=== PATIENT | female | born 1955 | race Caucasian/White ===

== ENCOUNTER 2020-09-03 11:12 | Outpatient (REF) | payer MEDICARE, SELFPAY ==
[2020-09-03 12:35] LABS: MANUAL DIFF FLAG NO
[2020-09-03 12:39] LABS: Basophils Percent Auto 0.6 % (0-2); Eosinophils Absolute Auto 0.2 X10*3/uL (0.0-0.4); Eosinophils Percent Auto 3.4 % (0-4); Hematocrit 37.6 % (37-47); Hemoglobin 12.5 g/dl (12.0-16.0); Imm Gran Abs Auto 0.02 X10*3/uL (0.00-0.03); Imm Gran Pct Auto 0.3 % (0.0-0.4); Lymphocytes Absolute Auto 2.4 X10*3/uL (1.2-4.9); Lymphocytes Percent Auto 34.2 % (20-40); Mean Corpuscular HGB Conc 33.2 g/dl (31.0-35.0); Mean Corpuscular Hemoglobin 30.2 pg (27.0-33.0); Mean Corpuscular Volume 90.8 fL (80-98); Mean Platelet Volume 10.3 fL (9.4-12.3); Monocytes Absolute Auto 0.4 X10*3/uL (0.1-1.2); Monocytes Percent Auto 5.4 % (2-11); Neutrophils Percent Auto 56.1 % (45-73); Platelet Count 255 X10*3/uL (160-400); Red Blood Count 4.14 X10*6/uL (4.20-5.50); Red Cell Distribution Width 12.7 % (11.0-16.0); White Blood Count 7.1 X10*3/uL (4.8-10.8)
[2020-09-03 14:09] LABS: Creatinine Urine 145.76 mg/dL; Microalbum/Creatinine Ratio Ur 9.6 ug/mg cr
[2020-09-03 14:09] LABS: Alanine Aminotransferase 35 U/L (0-31); Albumin Level 4.2 g/dL (3.5-5.0); Alkaline Phosphatase 69 U/L (39-117); Anion Gap 13 (12-20); Aspartate Amino Transferase 34 U/L (5-31); Bilirubin Total 1.3 mg/dL (0.0-1.0); Blood Urea Nitrogen 25 mg/dL (9-16); Calcium 9.9 mg/dL (8.4-10.2); Carbon Dioxide 25 mmol/L (22-29); Chloride 106 mmol/L (96-108); Cholesterol 145 mg/dL; Estimated Glomerular Filt Rate > 60; Glucose Fasting 136 mg/dL (60-99); HDL Cholesterol 37 mg/dL; LDL Cholesterol Calculated 81 mg/dl; Potassium 4.3 mmol/L (3.3-5.1); Sodium 140 mmol/L (135-145); Total Protein 7.3 g/dL (6.5-8.0); Triglycerides 137 mg/dL
[2020-09-03 14:17] LABS: TSH reflex Free T4 0.46 uIU/mL (0.32-4.0)
== END 2020-09-03 11:13 | disposition home or self-care (01) ==
LOC: HO.LAB 11:12
PROVIDERS: PCP Physician Assistant; Visit Provider Physician Assistant
DX: E78.2 Mixed hyperlipidemia (principal); E11.9 Type 2 diabetes mellitus without complications; I10 Essential (primary) hypertension
CPT/HCPCS: 36415; 80053; 80061; 82043; 84443; 85025

== ENCOUNTER 2020-10-12 13:00 | Outpatient (REF) | payer MEDICARE, SELFPAY ==
--- NOTE | ~2020-10-12 | MM_ITS ---
EXAMINATION: MM SCREENING DIGITAL BREAST TOMOSYNTHESIS, BILATERAL CLINICAL INFORMATION: Screening. Asymptomatic. The lifetime risk of breast cancer based on the Tyrer-Cuzick Model is 5%. COMPARISON: Mammography: 07/16/2018, 12/17/2015, 12/07/2015 TECHNIQUE: Digital breast tomosynthesis is performed in both the craniocaudal and mediolateral oblique views along with computer-aided detection (CAD). Synthesized 2D images are generated from the tomosynthesis. FINDINGS: The breasts are almost entirely fatty (ACR BI-RADS breast composition Category a). Background stromal and fibroglandular densities are stable. There are scattered benign round, rim, predominantly dermal calcifications again seen. The axilla and skin contours are unremarkable. MM/MM tomosynthesis screening BI IMPRESSION: No mammographic evidence of malignancy. ASSESSMENT: BI-RADS 2: Benign RECOMMENDATION: Routine annual mammography screening. This patient's information was entered into a reminder system with a target due date for their next mammogram.
--- NOTE | ~2020-10-12 | XR_ITS ---
EXAMINATION: XR SHOULDER, RIGHT CLINICAL INFORMATION: Encounter for other screening for malignant neoplasm COMPARISON: None TECHNIQUE: AP external rotation, Grashey, scapular Y, and axillary views of the right shoulder. FINDINGS: Bone alignment is normal. No fracture or dislocation is seen. The glenohumeral joint is normal. There is mild arthritis at the acromioclavicular joint. Soft tissues are unremarkable. XR/XR shoulder RT min 2V IMPRESSION: Mild arthritis at the acromioclavicular joint.
== END 2020-10-12 13:01 | disposition home or self-care (01) ==
LOC: HO.MAMMO 13:00
PROVIDERS: PCP Physician Assistant; Visit Provider Physician Assistant
DX: Z12.31 Encounter for screening mammogram for malignant neoplasm of breast (principal); M77.8 Other enthesopathies, not elsewhere classified
CPT/HCPCS: 73030; 77063; 77067

== ENCOUNTER 2021-01-17 15:56 | Emergency (ER) | payer OTHER, MEDICARE, SELFPAY ==
--- NOTE | ~2021-01-17 | XR_ITS ---
EXAMINATION: XR ELBOW, RIGHT CLINICAL INFORMATION: Trauma, pain COMPARISON: None TECHNIQUE: Right elbow is imaged in 4 views. FINDINGS: There is no fracture dislocation or destructive process. No visible capsular effusion. The articular surfaces appear intact. Some minor spurring is noted at the coronoid process. There is no joint narrowing or erosive change. XR/XR elbow RT min 3V IMPRESSION: No fracture, dislocation, or visible capsular effusion.
--- NOTE | ~2021-01-17 | XR_ITS ---
EXAMINATION: XR SHOULDER, RIGHT CLINICAL INFORMATION: Trauma, pain COMPARISON: Radiographs right shoulder 10/12/2020 TECHNIQUE: Right shoulder is imaged in 4 views. FINDINGS: There is no fracture or dislocation. The acromioclavicular alignment is normal. The glenohumeral joint is normal. There is a probable rotator cuff calcification adjacent to the tuberosity best seen on axial view, possibly within the distal subscapularis. The right lung apex shows no pneumothorax or pleural reaction. XR/XR shoulder RT min 2V IMPRESSION: 1. No fracture or dislocation. 2. Suspect calcific tendinosis in region of distal subscapularis.
[2021-01-17 16:02] VITALS: BP 169/78; PULSE 79; O2SAT 98
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
[2021-01-17 16:08] VITALS: BP 169/78; PULSE 79; RESP 19; TEMP 36.7; O2SAT 98; BMI 34.0
[2021-01-17] MEDS: Acetaminophen 325 MG TABLET 650 MG PO (16:34)
== END 2021-01-17 17:38 | disposition home or self-care (01) ==
PROVIDERS: Emergency Provider Emergency Medicine Emergency Medical Services; PCP Physician Assistant
DX: S50.01XA Contusion of right elbow, initial encounter (principal); M25.521 Pain in right elbow; M25.511 Pain in right shoulder; E11.9 Type 2 diabetes mellitus without complications; V43.62XA Car passenger injured in collision with other type car in traffic accident, initial encounter; Y93.9 Activity, unspecified; Y92.410 Unspecified street and highway as the place of occurrence of the external cause; Y99.9 Unspecified external cause status; Z79.899 Other long term (current) drug therapy; Z87.891 Personal history of nicotine dependence; Z79.4 Long term (current) use of insulin
CPT/HCPCS: 73030; 73080; 99283

== ENCOUNTER 2021-01-30 14:50 | Outpatient (REF) | payer OTHER, MEDICARE, SELFPAY ==
--- NOTE | ~2021-01-30 | XR_ITS ---
EXAMINATION: XR CERVICAL SPINE CLINICAL INFORMATION: Cervicalgia COMPARISON: None TECHNIQUE: 3 views of the cervical spine were obtained. FINDINGS: No acute fracture or subluxation. Vertebral body height and alignment is maintained. Mild disc space narrowing of C5-C6 and C6-C7 with tiny endplate osteophytes. The atlantoaxial joint is well aligned. The dens is intact. The prevertebral soft tissues are unremarkable. The lung apices are clear. XR/XR cervical spine 3V IMPRESSION: Mild degenerative change of the lower cervical spine.
== END 2021-01-30 14:51 | disposition home or self-care (01) ==
LOC: HO.XRAY 14:50
PROVIDERS: PCP Physician Assistant; Visit Provider Physician Assistant
DX: M54.2 Cervicalgia (principal)
CPT/HCPCS: 72040

== ENCOUNTER 2021-04-03 12:57 | Outpatient (REF) | payer MEDICARE, OTHER, SELFPAY | END 2021-04-03 12:58 | disposition home or self-care (01) | LOC: HO.MRI 12:57 | PROVIDERS: PCP Physician Assistant; Visit Provider Physician Assistant | DX: Z13.89 Encounter for screening for other disorder (principal) ==

== ENCOUNTER 2021-04-11 13:56 | Outpatient (REF) | payer MEDICARE, OTHER, SELFPAY ==
--- NOTE | ~2021-04-11 | MM_ITS ---
EXAMINATION: BONE DENSITOMETRY CLINICAL INDICATION: Menopause. COMPARISON: Baseline BD dated 03/08/2007. TECHNIQUE: Using a [employer] DXA System (software version: 13.1) manufactured by [employer], dual-energy x-ray absorptiometry was performed of the lumbar spine and left hip. The images are of good technical quality. Summary results are attached. FINDINGS: AP SPINE L1-L4: Current: BMD 1.216 g/cm2, Z-score 1.4, T-score 0.3, normal, 9.1% decrease from baseline (<5% change is not significant). Baseline: BMD 1.337 g/cm2. LEFT FEMUR, NECK: Current: BMD 0.745 g/cm2, Z-score -0.9, T-score -2.1, osteopenia. Baseline: BMD 0.871 g/cm2. LEFT FEMUR, TOTAL: Current: BMD 0.901 g/cm2, Z-score 0.1, T-score -0.8, normal, 9.6% decrease from baseline (<5% change is not significant). Baseline: BMD 0.997 g/cm2. IDENTIFIED RISK FACTORS: Menopause, height loss, history of fracture (adult), secondary osteoporosis. HISTORY OF FRACTURE: No insufficiency fracture reported. MEDICATIONS: Calcium. MM/XR DEXA axial skeleton IMPRESSION: 1. DIAGNOSIS: Osteopenia based on the lowest T-score value of -2.1 in the femoral neck applying World Health Organization criteria. 2. 10-YEAR FRACTURE RISK PREDICTION, FRAX: Major osteoporotic fracture (clinical spine, forearm, hip or shoulder) 18.1%. Hip fracture 3.2%. 3. Treatment Recommendations: NOF guidelines recommend consideration for treatment in postmenopausal women and men age 50 and older presenting with the following: -A hip or vertebral (clinical or morphometric) fracture. -T-score less than or equal to -2.5 at the femoral neck or spine after appropriate evaluation to exclude secondary causes. -Low bone mass at the hip or spine and a 10-year fracture probability by FRAX of greater than or equal to 3% for hip fracture or greater than or equal to 20% for major osteoporotic fracture based on the [place] adapted WHO algorithm. 4. Other Recommendations: All treatment decisions require clinical judgment and consideration of individual patient factors, including patient preferences, comorbidities, previous drug use, risk factors not captured in the FRAX model (e.g. frailty, falls, vitamin D deficiency, increased bone turnover, interval significant decline in bone density) and possible under or overestimation of fracture risk by FRAX. Additional medical evaluation for secondary cause of low bone mineral density may be appropriate. FUTURE SCAN RECOMMENDATION: People with diagnosed cases of osteoporosis or at high risk for fracture should have regular bone mineral density tests. For patients eligible for Medicare, routine testing is allowed once every 2 years. The testing frequency can be increased to one year for patients who have rapidly progressing disease, those who are receiving or discontinuing medical therapy to restore bone mass, or have additional risk factors.
== END 2021-04-11 13:57 | disposition home or self-care (01) ==
LOC: HO.MAMMO 13:56
PROVIDERS: Visit Provider Physician Assistant
DX: Z13.820 Encounter for screening for osteoporosis (principal); M85.80 Other specified disorders of bone density and structure, unspecified site; Z78.0 Asymptomatic menopausal state; Z79.899 Other long term (current) drug therapy
CPT/HCPCS: 77080

== ENCOUNTER 2021-06-27 11:00 | Outpatient (RCR) | payer OTHER, MEDICARE, SELFPAY ==
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
== END 2021-07-30 12:14 | disposition home or self-care (01) ==
LOC: HO.PT 11:00
PROVIDERS: PCP Physician Assistant; Visit Provider Psychiatry & Neurology Neurology
DX: M75.01 Adhesive capsulitis of right shoulder (principal)
CPT/HCPCS: 97140; 97162; 97530; 97535

== ENCOUNTER → 2021-08-08 10:56 | Outpatient (BNVA) | payer OTHER, MEDICARE, SELFPAY | PROVIDERS: PCP Physician Assistant; Visit Provider Physician Assistant | DX: M75.01 Adhesive capsulitis of right shoulder (principal) | CPT/HCPCS: 20610; J1020 ==

== ENCOUNTER → 2021-10-07 12:55 | Outpatient (BNVA) | payer MEDICARE, SELFPAY | PROVIDERS: PCP Physician Assistant; Visit Provider Surgery | DX: M75.01 Adhesive capsulitis of right shoulder (principal); M79.7 Fibromyalgia | CPT/HCPCS: 99202 ==

== ENCOUNTER → 2021-11-05 11:06 | Outpatient (BNVA) | payer OTHER, MEDICARE, SELFPAY | PROVIDERS: PCP Physician Assistant; Visit Provider Nurse Practitioner Family | DX: M75.01 Adhesive capsulitis of right shoulder (principal); M62.838 Other muscle spasm; M54.2 Cervicalgia; Z79.899 Other long term (current) drug therapy; Z79.4 Long term (current) use of insulin | CPT/HCPCS: 99202 ==

== ENCOUNTER → 2021-12-09 10:59 | Outpatient (BNVA) | payer OTHER, MEDICARE, SELFPAY | PROVIDERS: PCP Physician Assistant; Visit Provider Internal Medicine | DX: M75.01 Adhesive capsulitis of right shoulder (principal); M77.8 Other enthesopathies, not elsewhere classified | CPT/HCPCS: 20611; 99212; J2795; J3300 ==

== ENCOUNTER → 2022-04-21 15:14 | Outpatient (BNVA) | payer OTHER, MEDICARE, SELFPAY | PROVIDERS: PCP Physician Assistant; Visit Provider Internal Medicine | DX: M54.2 Cervicalgia (principal); M54.14 Radiculopathy, thoracic region | CPT/HCPCS: 99212 ==

== ENCOUNTER → 2022-05-09 11:52 | Outpatient (BNVA) | payer OTHER, MEDICARE, SELFPAY | PROVIDERS: PCP Physician Assistant; Visit Provider Internal Medicine | DX: M54.12 Radiculopathy, cervical region (principal) | CPT/HCPCS: Q3014 ==

== ENCOUNTER 2022-07-02 06:01 | Outpatient (REF) | payer OTHER, MEDICARE, SELFPAY ==
--- NOTE | ~2022-07-02 | FL_ITS ---
EXAMINATION: FL FLUOROSCOPY WITH IMAGES CLINICAL INFORMATION: Radiculopathy cervical region. COMPARISON: None available. TECHNIQUE: Fluoroscopy Supervised By: Dr. Jerald Varner Fluoroscopy Time: 0.6 minutes Cumulative Dose: 24 mGy-cm DAP: 2 Gy-cm2 Images: 4 FINDINGS: Images demonstrate needle placement and contrast injection adjacent to a lateral lower cervical vertebral body. FL/FL guidance in treatment room IMPRESSION: Fluoroscopy guidance for pain management procedure.
== END 2022-07-02 06:02 | disposition home or self-care (01) ==
LOC: CF 06:01
PROVIDERS: Visit Provider Internal Medicine
DX: M54.12 Radiculopathy, cervical region (principal)
CPT/HCPCS: 62321; J1100

== ENCOUNTER → 2022-08-01 11:40 | Outpatient (BNVA) | payer OTHER, MEDICARE, SELFPAY | PROVIDERS: PCP Physician Assistant; Visit Provider Internal Medicine | DX: M47.814 Spondylosis without myelopathy or radiculopathy, thoracic region (principal) | CPT/HCPCS: 99212 ==

== ENCOUNTER 2022-08-20 05:58 | Outpatient (REF) | payer OTHER, MEDICARE, SELFPAY ==
--- NOTE | ~2022-08-20 | FL_ITS ---
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 Jerald Varner. Fluoroscopy Time: 0.3 minutes. Cumulative Dose: 4.0 mGy. DAP: 0.348 Gycm2. Images: 2. FINDINGS: There are 3 spinal needles overlying 3 adjacent mid thoracic right neural foramen. There are degenerative changes thoracic spine with bridging osteophytes. FL/FL guidance in treatment room IMPRESSION: Fluoroscopy for pain management procedures.
== END 2022-08-20 05:59 | disposition home or self-care (01) ==
LOC: CF 05:58
PROVIDERS: Visit Provider Internal Medicine
DX: M47.814 Spondylosis without myelopathy or radiculopathy, thoracic region (principal)
CPT/HCPCS: 64490; 64491; J1020

== ENCOUNTER → 2022-08-29 08:51 | Outpatient (BNVA) | payer OTHER, MEDICARE, SELFPAY | PROVIDERS: PCP Physician Assistant; Visit Provider Internal Medicine | DX: M47.814 Spondylosis without myelopathy or radiculopathy, thoracic region (principal); M54.12 Radiculopathy, cervical region; G58.8 Other specified mononeuropathies | CPT/HCPCS: 99212 ==

== ENCOUNTER 2022-09-26 08:26 | Day surgery (SDC) | payer OTHER, MEDICARE, SELFPAY ==
--- NOTE | 2022-09-25 11:46 | HO.ANESPROP2 ---
Documented by User: Arlen Freire NP 09/25/22 11:46 HPI - Anesthesia Eval Consult details Narrative: 66yo F for Colonoscopy PMFSH Active Problems Active Problems: All Active Problems (Updated 09/23/22 @ 12:41 by Tye Butler PA-C) Intercostal neuralgia (Acute) Thoracic spondylosis (Acute) Cervical radicular pain (Acute) GERD (gastroesophageal reflux disease) (Acute) Thoracic radiculopathy (Acute) Adhesive capsulitis of right shoulder (Acute) Post-menopausal (Acute) Osteoporosis screening (Acute) Medicare annual wellness visit, initial (Acute ~03/18/21) Cervical spine pain (Acute) Breast cancer screening (Acute) Obese (Acute) HTN (hypertension) (Acute) Type 2 diabetes mellitus (Acute) HLD (hyperlipidemia) (Acute) Past Medical History Medical History BPPV (benign paroxysmal positional vertigo) Fibromyalgia History of smoking Osteoarthritis, shoulder Family History Family History Father Medical history unknown Mother CVD (cardiovascular disease) Family/Other FH: mental illness Surgical History Surgical History History of appendectomy History of removal of ovarian cyst History of wisdom tooth extraction Social History Social History Housing: Apartment Alcohol intake: never Patient Tobacco Use Status: Former Tobacco user e-Cigarette/Vaping Use: Never Used Second Hand Smoke Exposure: No Are you DNR?: No Advance Directives: No Advance Directives Information Provided: Yes Nutrition Risks: No Nutritional Risk Current occupational status: retired and disabled Cognitive needs: No Hearing needs: No Vision needs: Yes (wear glasses) Meds Allergies Allergy/AdvReac Type Severity Reaction Status Date / Time tramadol Allergy Mild Unknown Verified 09/26/22 08:35 fentanyl [From DURAGESIC] AdvReac Intermediate NAUSEA & Verified 09/26/22 08:35 VOMITING tizanidine AdvReac Intermediate fatigue Verified 09/26/22 08:35 states multiple meds does not Allergy Unknown Unknown Uncoded 08/29/22 08:55 Home Medications Medication Instructions Recorded Confirmed Last Taken Type lorazepam 0.5 mg tablet 0.5 mg PO BID 03/12/20 09/18/22 Unknown History ibuprofen 200 mg capsule 800 mg PO .HS 11/05/21 09/18/22 Unknown History insulin regular human 100 unit/mL 1 sliding scale dose subcut 12/09/21 09/18/22 Unknown History (3 mL) subcutaneous pen (Novolin R USEASDIRECTD FlexPen) Exam Exam Date and Time: September 25, 2022 1146 Assessment and Plan Assessment Anesthesia Assessment: Chart Reviewed Documented by User: Ana Begum MD 09/26/22 10:05 PMFSH Past Medical History Medical History BPPV (benign paroxysmal positional vertigo) Fibromyalgia History of smoking Osteoarthritis, shoulder Family History Family History Father Medical history unknown Mother CVD (cardiovascular disease) Family/Other FH: mental illness Family history of problems with anesthesia: No Surgical History Surgical History History of appendectomy History of removal of ovarian cyst History of wisdom tooth extraction History of Problems with Anesthesia: No Social History Social History Housing: Apartment Alcohol intake: never Patient Tobacco Use Status: Former Tobacco user e-Cigarette/Vaping Use: Never Used Second Hand Smoke Exposure: No Are you DNR?: No Advance Directives: No Advance Directives Information Provided: Yes Nutrition Risks: No Nutritional Risk Current occupational status: retired and disabled Cognitive needs: No Hearing needs: No Vision needs: Yes (wear glasses) Meds Allergies Allergy/AdvReac Type Severity Reaction Status Date / Time tramadol Allergy Mild Unknown Verified 09/26/22 08:35 fentanyl [From DURAGESIC] AdvReac Intermediate NAUSEA & Verified 09/26/22 08:35 VOMITING tizanidine AdvReac Intermediate fatigue Verified 09/26/22 08:35 states multiple meds does not Allergy Unknown Unknown Uncoded 08/29/22 08:55 Home Medications Medication Instructions Recorded Confirmed Last Taken Type lorazepam 0.5 mg tablet 0.5 mg PO BID 03/12/20 09/18/22 Unknown History ibuprofen 200 mg capsule 800 mg PO .HS 11/05/21 09/18/22 Unknown History insulin regular human 100 unit/mL 1 sliding scale dose subcut 12/09/21 09/18/22 Unknown History (3 mL) subcutaneous pen (Novolin R USEASDIRECTD FlexPen) Exam Airway Mallampati Class: I TM Dist: >3cm Neck ROM: Full Loose/Missing/Broken Teeth: Yes (left front chipped) Heart: rr Lungs: cts Assessment and Plan Assessment Anesthesia Assessment: Anesthesia Plan Discussed Final Anesthetic Review Family History of Problems with Anesthesia: No History of Problems with Anesthesia: No NPO: Yes ASA Class: II Final Preanesthetic Review: No Changes in Pt Med Stat, Meds/Allgs Chart Reviewed, Consent Obtained/Reviewed and Anes Risks/Benef Reviewed Patient Risk: Low Procedure Risk: Low Anesthetic Plan Anesthetic Plan: MAC: Disposition: Standard PACU
[2022-09-26 06:54] VITALS: BMI 31.8
[2022-09-26] MEDS: Lactated Ringers 1,000 ML 100 ML IVCONT (09:07)
[2022-09-26 09:17] LABS: Glucose, Whole Blood 173 mg/dL (60-115)
[2022-09-26 09:25] VITALS: BP 125/77; PULSE 77; RESP 18; TEMP 36.6; O2SAT 95
[2022-09-26 10:38] VITALS: BP 84/47; PULSE 68; RESP 16; TEMP 36.1; O2SAT 92
--- NOTE | 2022-09-26 10:39 | P.BOP_ITS ---
Brief Operative Note Date of Service: 09/26/22 Pre-op diagnosis: Screening Post-op diagnosis: other (Rectal polyp) Procedure: Colonoscopy to the cecum with cold snare polypectomy Surgeon: Trevon Burger Anesthesia: MAC Was an Tractor Crane Engineer used for this Procedure?: No Estimated blood loss (mL): 2.0 Pathology: other (A. Rectal polyp) Condition: stable Disposition: PACU
[2022-09-26 10:41] VITALS: BP 97/48
[2022-09-26 10:55] VITALS: BP 115/52; PULSE 66; RESP 17; TEMP 36.1; O2SAT 96
--- NOTE | 2022-09-26 10:56 | OP_ITS ---
DATE OF SERVICE: 09/26/2022 SURGEON: Trevon Burger MD INDICATIONS: The patient presents for evaluation of colorectal cancer screening. Full consent was obtained from her for this, including risks of bleeding and perforation. PREOPERATIVE DIAGNOSIS: POSTOPERATIVE DIAGNOSIS: PROCEDURE PERFORMED: Colonoscopy to cecum with cold snare polypectomy. ESTIMATED BLOOD LOSS: COMPLICATIONS: ANESTHESIA: Monitored anesthesia care. ASSISTANTS: SPECIMENS: PREOP DIAGNOSIS: Colorectal cancer screening. POSTOP DIAGNOSES: Colorectal cancer screening. Small colon polyp, diverticulosis and internal hemorrhoids. DESCRIPTION OF PROCEDURE: The patient was placed in the left lateral decubitus position. The digital rectal exam revealed no abnormalities. The Olympus video pediatric colonoscope was entered into the rectum and advanced to the cecum with the assistance of abdominal wall pressure. Once in the cecum, I did identify normal-appearing cecal pouch with appendiceal orifice and a normal-appearing ileocecal valve. There was transillumination of light deep in the right lower quadrant. The entire cecum and ileocecal valve appeared normal. The scope was then slowly withdrawn, assessing all mucosal surfaces carefully. Preparation was excellent. In the proximal rectum was an approximately 5 to 6 mm polyp, which was removed by cold snare polypectomy and recovered by suction. The polypectomy site appeared clean, without any sign of residual polyp nor significant bleeding. I did not visualize any other polyps, colitis, nor angiodysplasia. There was a mild amount of sigmoid diverticulosis. In the rectum, scope was retroflexed, visualizing internal hemorrhoids, but no other pathology. The rectal mucosa appeared normal. The scope was straightened and withdrawn from the patient. She tolerated the procedure well and was returned to the recovery area in stable condition. IMPRESSION: 1. Colon polyp. 2. Diverticulosis. 3. Internal hemorrhoids. PLAN: The results of the pathology will be checked. If the polyp is a tubular adenoma, I would recommend a followup colonoscopy in 5 years. If it is only hyperplastic, I would recommend a followup colonoscopy in 10 years. She was advised not to use any aspirin or NSAIDs for 1 week. MD FRANCIA Ferrer/RAMANDEEP / [id number] MTDAnthony
== END 2022-09-26 11:50 | disposition home or self-care (01) ==
PROVIDERS: PCP Physician Assistant; Visit Provider Internal Medicine
PROC: 0DJD8ZZ Inspection of Lower Intestinal Tract, Via Natural or Artificial Opening Endoscopic (ICD-10-PCS; CPT 45378; principal; 2022-09-26 09:30)
DX: Z12.11 Encounter for screening for malignant neoplasm of colon (principal); K62.1 Rectal polyp; K57.30 Diverticulosis of large intestine without perforation or abscess without bleeding; K64.8 Other hemorrhoids; K58.0 Irritable bowel syndrome with diarrhea; K21.9 Gastro-esophageal reflux disease without esophagitis; E78.5 Hyperlipidemia, unspecified; I10 Essential (primary) hypertension; M79.7 Fibromyalgia; J44.9 Chronic obstructive pulmonary disease, unspecified; H81.10 Benign paroxysmal vertigo, unspecified ear; E11.9 Type 2 diabetes mellitus without complications; Z79.4 Long term (current) use of insulin; Z79.1 Long term (current) use of non-steroidal anti-inflammatories (NSAID); Z79.899 Other long term (current) drug therapy; Z88.8 Allergy status to other drugs, medicaments and biological substances; Z87.891 Personal history of nicotine dependence
CPT/HCPCS: 45385; 82947; 88305

== ENCOUNTER 2022-10-01 08:22 | Outpatient (REF) | payer OTHER, MEDICARE, SELFPAY ==
[2022-10-01 11:39] LABS: Hematocrit 37.6 % (37.0-47.0); Hemoglobin 12.5 g/dl (12.0-16.0); Mean Corpuscular HGB Conc 33.2 g/dl (31.0-35.0); Mean Corpuscular Hemoglobin 30.3 pg (27.0-33.0); Mean Platelet Volume 10.6 fL (9.4-12.3); Platelet Count 261 X10*3/uL (160-400); Red Blood Count 4.13 X10*6/uL (4.20-5.50); Red Cell Distribution Width 13.1 % (11.0-16.0); White Blood Count 6.9 X10*3/uL (4.8-10.8)
[2022-10-01 12:54] LABS: Alanine Aminotransferase 27 U/L (0-31); Alkaline Phosphatase 85 U/L (39-117); Anion Gap 14 (12-20); Aspartate Amino Transferase 30 U/L (5-31); Blood Urea Nitrogen 26 mg/dL (9-16); Calcium 10.6 mg/dL (8.4-10.2); Carbon Dioxide 27 mmol/L (22-29); Chloride 105 mmol/L (96-108); Cholesterol 138 mg/dL; Estimated Glomerular Filt Rate 54; Glucose Fasting 116 mg/dL (60-99); HDL Cholesterol 42 mg/dL; LDL Cholesterol Calculated 74 mg/dl; Potassium 4.3 mmol/L (3.3-5.1); Sodium 142 mmol/L (135-145); Total Protein 7.6 g/dL (6.5-8.0); Triglycerides 112 mg/dL
== END 2022-10-01 08:23 | disposition home or self-care (01) ==
LOC: HO.LAB 08:22
PROVIDERS: PCP Physician Assistant; Visit Provider Physician Assistant
DX: I10 Essential (primary) hypertension (principal); E78.2 Mixed hyperlipidemia; G58.8 Other specified mononeuropathies
CPT/HCPCS: 36415; 64420; 80053; 80061; 82043; 85027

== ENCOUNTER 2022-10-01 08:43 | Outpatient (REF) | payer MEDICARE, SELFPAY | END 2022-10-01 08:44 | disposition home or self-care (01) | LOC: CF 08:43 | PROVIDERS: Visit Provider Internal Medicine | DX: Z13.89 Encounter for screening for other disorder (principal) ==

== ENCOUNTER 2022-10-03 11:01 | Outpatient (AMB) | payer MEDICARE, SELFPAY ==
[2022-10-03 11:05] VITALS: BP 102/96; PULSE 85; RESP 14; O2SAT 96; BMI 32.4
--- NOTE | 2022-10-03 11:05 | MHC.OFFVIS ---
Intake Vital Signs 10/03/22 11:05 Height 5 ft 1 in Weight 171 lb 6 oz BMI 32.4 BP 102/96 H Blood Pressure Location Rt brachial Position Sitting Respiration 14 Pulse 85 Pulse Source Pulse Oximeter Pulse Oximetry (%) 96 Oxygen Delivery Method Room Air Intake Visit Reasons: s/p right Dx T8-T9 intercostal NB Allergies tramadol Allergy (Mild, Verified 10/03/22 11:06) Unknown fentanyl [From DURAGESIC] Adverse Reaction (Intermediate, Verified 10/03/22 11:06) NAUSEA & VOMITING tizanidine Adverse Reaction (Intermediate, Verified 10/03/22 11:06) fatigue states multiple meds does not Allergy (Unknown, Uncoded 08/29/22 08:55) Unknown HPI s/p right Dx T8-T9 intercostal NB HPI Details 66-year-old female presenting today for a status post right diagnostic T8-T9 intercoastal nerve block. She had a numbness that radiated around her right side and under the right breast. Unfortunately, this was a bit lower than her area of pain, which she reports today is usually more in the axilla and above the breast. Past procedures: 10/01/22: Intercostal nerve block, right, 8th and 9th, ultrasound-guided: inadequate mapping 08/20/2022: Thoracic Medial Branch Block, Right, T8, T9, T10 medial branches: 50% relief for 2 hours. 07/02/2022: Interlaminar epidural steroid injection, C7/T1, Right parasaggital: 40% relief. [facility] Medical History BPPV (benign paroxysmal positional vertigo) Fibromyalgia History of smoking Osteoarthritis, shoulder Surgical History History of appendectomy History of removal of ovarian cyst History of wisdom tooth extraction Family History Father Medical history unknown Mother CVD (cardiovascular disease) Family/Other FH: mental illness Social History Housing: Apartment Alcohol intake: never Patient Tobacco Use Status: Former Tobacco user e-Cigarette/Vaping Use: Never Used Second Hand Smoke Exposure: No Current occupational status: retired and disabled Cognitive needs: No Hearing needs: No Vision needs: Yes (wear glasses) Review of Systems Const All systems reviewed & are unremarkable except as noted in HPI and below Physical Exam Vital Signs: Last Vital Signs Pulse 85 10/03/22 11:05 Resp 14 10/03/22 11:05 BP 102/96 H 10/03/22 11:05 Pulse Ox 96 10/03/22 11:05 Oxygen Delivery Method Room Air 10/03/22 11:05 BMI result Body Mass Index 32.4 General: Appears afebrile. Alert and oriented. Mood and affect appropriate. Follows and participates in conversation appropriately. Respiratory effort is unlabored. Able to transition from sit to stand unassisted. Ambulates with bilaterally normal heel strike and toe off. Results Reviewed Results Reviewed: No imaging is available for review. Assessment & Plan Assessment & Plan (1) Intercostal neuralgia: Code(s): G58.8 - Other specified mononeuropathies Plan We will reschedule her for a diagnostic right T5-T6-T7 intercostal nerve block for intercostal neuralgia to get better mapping. Discussed the risks and benefits of the procedure with the patient in detail. All questions were answered. The patient is on board with the plan. Justification for interventional therapy: ? Patient with average pain > 6/10 ? Patient has exhausted conservative therapy. The patient will follow up on 10/20/22. Scribed for Dr. Varner by Pedrito Tran, director medical writing, on 10/03/2022. I, Dr. Varner, have personally reviewed and agree with the information entered by the scribe. Coding Level of Care Code Est Pt Level 3 (44613) Diagnoses Intercostal neuralgia G58.8
== END 2022-10-03 11:22 | disposition home or self-care (01) ==
PROVIDERS: PCP Physician Assistant; Visit Provider Internal Medicine
DX: G58.8 Other specified mononeuropathies (principal)
CPT/HCPCS: 99213

== ENCOUNTER → 2022-10-03 11:01 | Outpatient (BNVA) | payer OTHER, MEDICARE, SELFPAY | PROVIDERS: PCP Physician Assistant; Visit Provider Internal Medicine | DX: G58.8 Other specified mononeuropathies (principal) | CPT/HCPCS: 99212 ==

== ENCOUNTER 2022-10-20 08:59 | Outpatient (AMB) | payer MEDICARE, SELFPAY ==
--- NOTE | 2022-10-20 09:00 | MHC.OFFVIS ---
Intake Vital Signs 10/20/22 09:01 Height 5 ft 1 in Weight 172 lb BMI 32.5 BP 110/56 L Blood Pressure Location Rt brachial Position Sitting Respiration 16 Pulse 58 Pulse Source Pulse Oximeter Pulse Oximetry (%) 97 Oxygen Delivery Method Room Air Intake Visit Reasons: 2 WEEK FOLLOW UP Allergies tramadol Allergy (Mild, Verified 10/20/22 09:05) Unknown fentanyl [From DURAGESIC] Adverse Reaction (Intermediate, Verified 10/20/22 09:05) NAUSEA & VOMITING tizanidine Adverse Reaction (Intermediate, Verified 10/20/22 09:05) fatigue states multiple meds does not Allergy (Unknown, Uncoded 08/29/22 08:55) Unknown HPI 2 WEEK FOLLOW UP HPI Details 67-year-old female presenting today for two-week follow-up. Patient presents for scheduled procedure. Denies any recent cough, cold, infection, fever or other significant changes in medical history since last office visit. She reports her worst pain is in the right upper periscapular region that radiates around the right side of her thorax towards the upper part of her breast. She also complains of significant pain and tenderness in the right triceps area. Past procedures: 10/01/22: Intercostal nerve block, right, 8th and 9th, ultrasound-guided: inadequate mapping. 08/20/2022: Thoracic Medial Branch Block, Right, T8, T9, T10 medial branches: 50% relief for 2 hours. 07/02/2022: Interlaminar epidural steroid injection, C7/T1, Right parasaggital: 40% relief. [facility] Medical History (Updated 10/20/22 @ 10:54 by Jerald Varner MD) BPPV (benign paroxysmal positional vertigo) Fibromyalgia History of smoking Osteoarthritis, shoulder Surgical History History of appendectomy History of removal of ovarian cyst History of wisdom tooth extraction Family History Father Medical history unknown Mother CVD (cardiovascular disease) Family/Other FH: mental illness Social History Housing: Apartment Alcohol intake: never Patient Tobacco Use Status: Former Tobacco user e-Cigarette/Vaping Use: Never Used Second Hand Smoke Exposure: No Current occupational status: retired and disabled Cognitive needs: No Hearing needs: No Vision needs: Yes (wear glasses) Review of Systems Const All systems reviewed & are unremarkable except as noted in HPI and below Physical Exam Vital Signs: Last Vital Signs Pulse 58 10/20/22 09:01 Resp 16 10/20/22 09:01 BP 110/56 L 10/20/22 09:01 Pulse Ox 97 10/20/22 09:01 Oxygen Delivery Method Room Air 10/20/22 09:01 BMI result Body Mass Index 32.5 General: Appears afebrile. Alert and oriented. Mood and affect appropriate. Follows and participates in conversation appropriately. Respiratory effort is unlabored. Able to transition from sit to stand unassisted. Ambulates with bilaterally normal heel strike and toe off. Significant tenderness to palpation in the right triceps area. Office Procedures Nerve Block Details: Right 4th intercostal nerve block, ultrasound-guided After obtaining written consent, pre-procedure time-out was completed. The patient was placed in a left lateral position. The relevant levels of the intercostal nerves were physically palpated corresponding to the patient's pain and marked. Using ultrasound, the appropriate landmarks including the rib, intercostal muscles and pleura were identified. The skin was anesthetized with 1% lidocaine. A 21 gauge 80 mm echostim needle was advanced under sonographic guidance in proximity to the 4th intercostal nerve. Aspiration was negative for heme and air. 2 cc of bupivacaine 0.5% mixed with 2 cc of lidocaine 1% was injected around the targeted nerve. The needle was removed, skin cleansed and a sterile bandage was applied. The patient tolerated the procedure well and no complications were encountered. Following the procedure the patient's vital signs and respiration were stable. The patient was discharged home in good condition with post-procedural instructions. Time Out: Immediately prior to the procedure, the following was verbally confirmed that there is a signed consent form and that the correct patient, planned procedure, site and side are consistent with documentation and that necessary equipment and/or blood products are available prior to the start of the case. Complications: none EBL: <1 cc Procedure code (CPT) selection complete Results Reviewed Results Reviewed: Shoulder MRI: Partial-thickness tendinopathy of the right supraspinatus tendon. Assessment & Plan Assessment & Plan (1) Intercostal neuralgia: Code(s): G58.8 - Other specified mononeuropathies (2) Right shoulder pain: Code(s): M25.511 - Pain in right shoulder Plan Patient is status post US guided diagnostic right 4th intercostal nerve block. Patient tolerated procedure well and was discharged home in stable condition with discharge instructions. All questions were answered. The patient will return to clinic in 2 weeks for a diagnostic right suprascapular nerve block for her right shoulder pain. She does have a history of right supraspinatus tendinopathy. Given her pain around the right upper extremity area and the right upper thoracic area, it is possible that her entire pain issue is a referred shoulder pain. We will hold off on intercostal nerve stimulation therapy until after the diagnostic nerve block of the suprascapular nerve. Patient is in agreement with this plan. Scribed for Dr. Varner by Pedrito Tran, medical delivery technician, on 10/20/2022. I, Dr. Varner, have personally reviewed and agree with the information entered by the scribe. Coding Level of Care Code Est Pt Level 4 (58165) Diagnoses Intercostal neuralgia G58.8 Right shoulder pain M25.511
[2022-10-20 09:01] VITALS: BP 110/56; PULSE 58; RESP 16; O2SAT 97; BMI 32.5
== END 2022-10-20 10:06 | disposition home or self-care (01) ==
PROVIDERS: PCP Physician Assistant; Visit Provider Internal Medicine
DX: G58.8 Other specified mononeuropathies (principal); M25.511 Pain in right shoulder
CPT/HCPCS: 64420

== ENCOUNTER → 2022-10-20 08:59 | Outpatient (BNVA) | payer OTHER, MEDICARE, SELFPAY | PROVIDERS: PCP Physician Assistant; Visit Provider Internal Medicine | DX: G58.8 Other specified mononeuropathies (principal); M25.511 Pain in right shoulder | CPT/HCPCS: 64420 ==

== ENCOUNTER 2022-11-03 13:42 | Outpatient (AMB) | payer OTHER, MEDICARE, SELFPAY ==
--- NOTE | 2022-11-03 13:44 | MHC.OFFVIS ---
Intake Vital Signs 11/03/22 13:47 Height 5 ft 1 in Weight 172 lb BMI 32.5 BP 130/65 Blood Pressure Location Lt brachial Position Sitting Respiration 14 Pulse 91 Pulse Source Pulse Oximeter Intake Visit Reasons: RT DX SUPRASCAPULAR INJECTION Allergies tramadol Allergy (Mild, Verified 10/20/22 09:05) Unknown fentanyl [From DURAGESIC] Adverse Reaction (Intermediate, Verified 10/20/22 09:05) NAUSEA & VOMITING tizanidine Adverse Reaction (Intermediate, Verified 10/20/22 09:05) fatigue states multiple meds does not Allergy (Unknown, Uncoded 08/29/22 08:55) Unknown HPI RT DX SUPRASCAPULAR INJECTION HPI Details 67-year-old female presenting today for a right diagnostic suprascapular nerve block. Denies any recent cough, cold, infection, fever or other significant changes in medical history since last office visit. Past procedures: 10/20/22: Right 4th/5th intercostal nerve block, ultrasound-guided: >80% relief for a day for chest wall pain. 10/01/22: Intercostal nerve block, right, 8th and 9th, ultrasound-guided: inadequate mapping. 08/20/2022: Thoracic Medial Branch Block, Right, T8, T9, T10 medial branches: 50% relief for 2 hours. 07/02/2022: Interlaminar epidural steroid injection, C7/T1, Right parasaggital: 40% relief. [facility] Medical History (Updated 10/20/22 @ 10:54 by Jerald Varner MD) BPPV (benign paroxysmal positional vertigo) Fibromyalgia History of smoking Osteoarthritis, shoulder Surgical History History of appendectomy History of removal of ovarian cyst History of wisdom tooth extraction Family History Father Medical history unknown Mother CVD (cardiovascular disease) Family/Other FH: mental illness Social History Housing: Apartment Alcohol intake: never Patient Tobacco Use Status: Former Tobacco user e-Cigarette/Vaping Use: Never Used Second Hand Smoke Exposure: No Current occupational status: retired and disabled Cognitive needs: No Hearing needs: No Vision needs: Yes (wear glasses) Review of Systems Const All systems reviewed & are unremarkable except as noted in HPI and below Physical Exam Vital Signs: Last Vital Signs Pulse 91 11/03/22 13:47 Resp 14 11/03/22 13:47 BP 130/65 11/03/22 13:47 BMI result Body Mass Index 32.5 General: Appears afebrile. Alert and oriented. Mood and affect appropriate. Follows and participates in conversation appropriately. Respiratory effort is unlabored. Able to transition from sit to stand unassisted. Ambulates with bilaterally normal heel strike and toe off. Office Procedures Nerve Block Details: Right diagnostic suprascapular nerve block, US guided After obtaining written consent, pre-procedure blood pressure and heart rate were stable and recorded in the nursing record. The patient was placed in the sitting position. The area overlying the peripheral nerve was widely prepped with chloraprep, allowed to dry and sterilely draped. Using ultrasound, the appropriate landmarks were identified. An 80 mm 21 gauge echostim needle was advanced under ultrasound guidance to the suprascapular notch. Aspiration was negative for heme and synovial fluid. 2 cc of bupivacaine 0.5% was injected around the targeted nerve. The needles were removed, skin cleansed and a sterile bandage was applied. The patient tolerated the procedure well and no complications were encountered. Following the procedure the patient's vital signs were stable. The patient was discharged home in good condition with post-procedural instructions. Time Out: Immediately prior to the procedure, the following was verbally confirmed that there is a signed consent form and that the correct patient, planned procedure, site and side are consistent with documentation and that necessary equipment and/or blood products are available prior to the start of the case. Complications: none EBL: <5 cc 53146 - Suprascapular Procedure code (CPT) selection complete Results Reviewed Results Reviewed: No imaging is available for review. Assessment & Plan Assessment & Plan (1) Right shoulder pain: Code(s): M25.511 - Pain in right shoulder Plan Patient is status post right diagnostic suprascapular nerve block. Patient tolerated procedure well and was discharged home in stable condition with discharge instructions. All questions were answered. The patient will follow-up on 11/10/22 for right AC joint injection that was previously planned. Depending on her response to suprascapular nerve block, we can consider either intercostal nerve stimulator placement or suprascapular nerve stimulator placement for longer-term relief of her shoulder/axilla/upper lateral chest wall pain. The patient is on board with the plan. Justification for interventional therapy: ? Patient with average pain > 6/10 ? Patient has exhausted conservative therapy. Scribed for Dr. Varner by Pedrito Tran, medical donation professional, on 11/03/2022. I, Dr. Varner, have personally reviewed and agree with the information entered by the scribe. Coding Level of Care Code Procedure Only Diagnoses Right shoulder pain M25.511 CPT Codes Nerve Block - Nerve Block 4: 83316 - Suprascapular ([id number])
[2022-11-03 13:47] VITALS: BP 130/65; PULSE 91; RESP 14; BMI 32.5
== END 2022-11-03 14:14 | disposition home or self-care (01) ==
PROVIDERS: PCP Physician Assistant; Visit Provider Internal Medicine
DX: M25.511 Pain in right shoulder (principal)
CPT/HCPCS: 64418

== ENCOUNTER → 2022-11-03 13:42 | Outpatient (BNVA) | payer MEDICARE, SELFPAY | PROVIDERS: PCP Physician Assistant; Visit Provider Internal Medicine | DX: M25.511 Pain in right shoulder (principal); M79.7 Fibromyalgia | CPT/HCPCS: 64418; J2795 ==

== ENCOUNTER 2022-11-10 09:13 | Outpatient (AMB) | payer OTHER, MEDICARE, SELFPAY ==
--- NOTE | 2022-11-10 09:15 | A.OFFVIS_ITS ---
Intake Vital Signs 11/10/22 09:16 Height 5 ft 1 in BP 94/58 L Blood Pressure Location Lt brachial Position Sitting Respiration 14 Pulse 97 Pulse Source Pulse Oximeter Pulse Oximetry (%) 97 Oxygen Delivery Method Room Air Intake Visit Reasons: Right AC joint injection Allergies tramadol Allergy (Mild, Verified 10/20/22 09:05) Unknown fentanyl [From DURAGESIC] Adverse Reaction (Intermediate, Verified 10/20/22 09:05) NAUSEA & VOMITING tizanidine Adverse Reaction (Intermediate, Verified 10/20/22 09:05) fatigue states multiple meds does not Allergy (Unknown, Uncoded 08/29/22 08:55) Unknown HPI Right AC joint injection HPI Details 67-year-old female presenting today for a right AC joint injection. Denies any recent cough, cold, infection, fever or other significant changes in medical history since last office visit. Past procedures: 11/03/22: Right diagnostic suprascapular nerve block, US guided: 100% numbness for 24 hours, but it did not affect her upper lateral thoracic/axilla pain. 10/20/22: Right 4th/5th intercostal nerve block, ultrasound-guided: >80% relief for a day for chest wall pain. 10/01/22: Intercostal nerve block, right, 8th and 9th, ultrasound-guided: inadequate mapping. 08/20/2022: Thoracic Medial Branch Block, Right, T8, T9, T10 medial branches: 50% relief for 2 hours. 07/02/2022: Interlaminar epidural steroid injection, C7/T1, Right parasaggital: 40% relief. [facility] Medical History (Updated 10/20/22 @ 10:54 by Jerald Varner MD) BPPV (benign paroxysmal positional vertigo) Fibromyalgia History of smoking Osteoarthritis, shoulder Surgical History History of appendectomy History of removal of ovarian cyst History of wisdom tooth extraction Family History Father Medical history unknown Mother CVD (cardiovascular disease) Family/Other FH: mental illness Social History Housing: Apartment Alcohol intake: never Patient Tobacco Use Status: Former Tobacco user e-Cigarette/Vaping Use: Never Used Second Hand Smoke Exposure: No Current occupational status: retired and disabled Cognitive needs: No Hearing needs: No Vision needs: Yes (wear glasses) Review of Systems Const All systems reviewed & are unremarkable except as noted in HPI and below Physical Exam Vital Signs: Last Vital Signs Pulse 97 11/10/22 09:16 Resp 14 11/10/22 09:16 BP 94/58 L 11/10/22 09:16 Pulse Ox 97 11/10/22 09:16 Oxygen Delivery Method Room Air 11/10/22 09:16 General: Appears afebrile. Alert and oriented. Mood and affect appropriate. Follows and participates in conversation appropriately. Respiratory effort is unlabored. Able to transition from sit to stand unassisted. Ambulates with bilaterally normal heel strike and toe off. Office Procedures Joint Injection/Drain Joint Injection/Drain Details: Right AC joint injection and subacromial bursa injection under US guidance Primary Site: right shoulder Prep: site was prepped using sterile technique Injected: 10 mg of (Kenalog in the AC joint), 20 mg of (kenalog in subacromial space.), with 1 mL of (ropivacaine 0.5%), in the joint and in the subcromial space Approach Used: anterior Procedure: The patient tolerated the procedure well Coding 93230 - Acromioclavicular with ultrasound guidance Procedure code (CPT) selection complete Results Reviewed Results Reviewed: No imaging is available for review. Assessment & Plan Assessment & Plan (1) Right shoulder pain: Code(s): M25.511 - Pain in right shoulder Plan Patient is status post right AC joint injection and subacromial bursa injection. Patient tolerated procedure well and was discharged home in stable condition with discharge instructions. With respect to her upper thoracic/chest wall/right axillary pain, it appears that the most diagnostic of the various interventions we undertook was the right 4th intercostal nerve block. She is interested in proceeding with a trial of intercostal nerve stimulator placement at that site. We will submit a PA for this procedure and schedule it accordingly. Patient has previously exhausted conservative management including oral medications, neuropathic medications and physical therapy. She got diagnostic but not therapeutic relief from intercostal nerve blocks. Scribed for Dr. Varner by Pedrito Tran, health care / medical job titles, on 11/10/2022. I, Dr. Varner, have personally reviewed and agree with the information entered by the scribe. Coding Level of Care Code Est Pt Level 3 (92715) Diagnoses Right shoulder pain M25.511 CPT Codes Coding - Joint 6: 01215 - Acromioclavicular with ultrasound guidance ([id number])
[2022-11-10 09:16] VITALS: BP 94/58; PULSE 97; RESP 14; O2SAT 97
== END 2022-11-10 09:43 | disposition home or self-care (01) ==
PROVIDERS: PCP Physician Assistant; Visit Provider Internal Medicine
DX: M25.511 Pain in right shoulder (principal)
CPT/HCPCS: 20606; 99213

== ENCOUNTER → 2022-11-10 09:13 | Outpatient (BNVA) | payer MEDICARE, SELFPAY | PROVIDERS: PCP Physician Assistant; Visit Provider Internal Medicine | DX: M25.511 Pain in right shoulder (principal); M79.7 Fibromyalgia | CPT/HCPCS: 20606; 99212 ==

== ENCOUNTER 2022-12-24 12:15 | Day surgery (SDC) | payer MEDICARE, SELFPAY ==
[2022-12-24 12:22] VITALS: BMI 32.5
[2022-12-24 12:40] VITALS: BP 104/62; PULSE 62; RESP 16; TEMP 36.1; O2SAT 96
[2022-12-24 14:01] VITALS: BP 116/75; PULSE 67; RESP 18; TEMP 36.7; O2SAT 96
--- NOTE | 2022-12-24 14:04 | MHC.SHP ---
Pre-Procedural Eval Section A Date of Service: 12/24/22 The patient is an INPATIENT: No Changes since office visit: Yes Patient answered all questions The History & Physical has been completed within 30 days and I have reviewed it.: Yes Section B Chief Complaint: Other specified mononeuropathies Relevant Family History (Specify if Yes): Yes Relevant Social History: None Present Medications: see Short Stay Collaborative assessment Medical History: No relevant PMH History of Previous Operations: No relevant previous surgery Allergies: Allergies Allergy/AdvReac Type Severity Reaction Status Date / Time tramadol Allergy Mild Unknown Verified 10/20/22 09:05 fentanyl [From DURAGESIC] AdvReac Intermediate NAUSEA & Verified 10/20/22 09:05 VOMITING tizanidine AdvReac Intermediate fatigue Verified 10/20/22 09:05 states multiple meds does not Allergy Unknown Unknown Uncoded 08/29/22 08:55 Review of Systems Sugical H&P ROS: Negative: Constitution, Cardiovascular and Respiratory Exam Surgical H&P Exam: Normal: HEENT, Normal: Heart and Normal: Lungs Plan Diagnosis/Plan: Unchanged I have reviewed the history and physical and performed a pertinent physical examination on my patient. No changes have occurred unless specified. Time Spent With Patient Time: Total time managing care of this patient today ____ minutes.
--- NOTE | 2022-12-24 14:05 | PM.OP ---
Brief Operative Note Date of Service: 12/24/22 Pre-op diagnosis: Intercostal neuralgia Post-op diagnosis: same Procedure: Temporary 4th intercostal nerve stimulator placement Implants: Sprint temporary PNS system Surgeon: Jerald Varner MD Anesthesia: local Was an Solar [employer] Installation Crew Member used for this Procedure?: No Estimated blood loss (mL): 2 Pathology: none sent Condition: stable Disposition: same day
--- NOTE | 2022-12-24 14:06 | P.OP_ITS ---
Operative Note Operative Note Date of Service: 12/24/22 Narrative: Peripheral Nerve Stimulation Temporary Lead Placement, Ultrasound and Fluoroscopy-Guided, 4th Intercostal Nerve, Right ? After the risks, benefits and alternatives were discussed with the patient and informed consent was obtained, patient was placed in the prone position and padded to foster comfort. The 4th and 5th intercostal ribs were palpated which corresponded to the patient's tenderness as elicited on palpation. Decision was made to start with the 5th intercostal nerve given maximal correspondence to his tenderness with this level. Ultrasound was used to identify the desired intercostal space and the pleura was identified. The skin around the planned entry point and the subcutaneous tissues were then injected with lidocaine 0.5%. An introducer needle and stimulating probe were assembled, inserted and advanced towards the 5th intercostal nerve, taking care to maintain the proper depth of insertion as the introducer was advanced under ultrasound guidance. The introducer needle was delivered to a location in proximity to the nerve. Multiple stimulation parameters were used to deliver stimulation to the intercostal nerve. This stimulation was felt to be below the patient's usual area of pain, so the needle was removed and reintroduced 1 level above to the target intercostal level of 4th intercostal nerves in the same fashion as before. Nerve target acquisition was confirmed noting generation of sensory and mild motor effects (paresthesia, muscle tension, etc) in the posterior chest wall; corresponding to the distribution of the nerve. Various electrical parameter combinations were tested, and the lead location was adjusted (physically relocated under ultrasound guidance) until the patient indicated abdominal wall paresthesia and tension overlapping the distribution of the pat ient?s typical region of pain. The stimulating probe was removed from the introducer and a percutaneous lead was guided through the needle and delivered to a location in similar proximity to the nerve. Final location was verified with electrical stimulation and documented. The introducer needle was removed, and the exposed end of the percutaneous lead was attached to an external stimulator unit. Various electrical parameter combinations were again tested until the patient indicated paresthesia and muscle tension overlapping the distribution of the patient?s typical region of pain. After confirming that lead impedance was in the normal range, the external unit was detached, the needle was removed, and the lead was anchored at the skin. The lead was threaded into the connector block and electrical continuity and desired patient response was confirmed. The connector block was attached to the external stimulator unit. The site was covered with a sterile occlusive dressing. A final ultrasound image was taken to document final placement. The patient was observed for stability of vital signs and comfort. The patient had equal and bilateral breath sounds in the recovery area with no evidence of any respiratory distress. The patient was discharged in stable condition.
== END 2022-12-24 14:51 | disposition home or self-care (01) ==
PROVIDERS: PCP Physician Assistant; Visit Provider Internal Medicine
PROC: (CPT 64555; principal; 2022-12-24 14:00)
DX: G58.8 Other specified mononeuropathies (principal); M79.7 Fibromyalgia; M19.011 Primary osteoarthritis, right shoulder; M25.511 Pain in right shoulder; H81.10 Benign paroxysmal vertigo, unspecified ear; Z88.5 Allergy status to narcotic agent; Z88.8 Allergy status to other drugs, medicaments and biological substances; Z87.891 Personal history of nicotine dependence
CPT/HCPCS: 64555; C1778

== ENCOUNTER → 2022-12-24 12:15 | Outpatient (BNV) | payer MEDICARE, SELFPAY | PROVIDERS: PCP Physician Assistant; Visit Provider Internal Medicine | DX: G58.8 Other specified mononeuropathies (principal) | CPT/HCPCS: 64555 ==

== ENCOUNTER 2022-12-29 12:59 | Outpatient (AMB) | payer MEDICARE, SELFPAY ==
[2022-12-29 13:12] VITALS: BP 132/63; PULSE 64; RESP 14; O2SAT 96; BMI 32.5
--- NOTE | 2022-12-29 13:12 | MHC.OFFVIS ---
Intake Vital Signs 12/29/22 13:12 Height 5 ft 1 in Weight 172 lb BMI 32.5 BP 132/63 Blood Pressure Location Lt brachial Position Sitting Respiration 14 Pulse 64 Pulse Source Pulse Oximeter Pulse Oximetry (%) 96 Oxygen Delivery Method Room Air Intake Visit Reasons: s/p Right 4th intercostal Sprint Allergies tramadol Allergy (Mild, Verified 12/29/22 13:14) Unknown fentanyl [From DURAGESIC] Adverse Reaction (Intermediate, Verified 12/29/22 13:14) NAUSEA & VOMITING tizanidine Adverse Reaction (Intermediate, Verified 12/29/22 13:14) fatigue states multiple meds does not Allergy (Unknown, Uncoded 12/29/22 13:14) Unknown Medication List - Last Reconciled 12/29/22 by Chelsi Easley LPN blood sugar diagnostic (MyTwinPlaceTouch Verio test strips) USE ONE STRIP THREE TIMES A DAY hydrochlorothiazide 25 mg PO QAM ibuprofen 800 mg PO .HS insulin glargine (Basaglar KwikPen U-100 Insulin) 25 units (0.25 mL) subcut BEDTIME 30 days insulin regular human (Novolin R FlexPen) 1 sliding scale dose subcut USEASDIRECTD lancets (OneTouch Delica Lancets) 1 gauge topical TID 30 days lancets (OneTouch Delica Plus Lancet) Testing 3 times a day lisinopril 10 mg PO DAILY lorazepam 0.5 mg PO BID metformin 500 mg PO TID 3 months omeprazole 20 mg PO DAILY pen needle, diabetic (BD Marilyn 2nd Gen Pen Needle) USE TWICE DAILY pen needle, diabetic (BD Marilyn 2nd Gen Pen Needle) 1 ea miscellaneous BID simvastatin 10 mg PO DAILY HPI s/p Right 4th intercostal Sprint HPI Details 67-year-old female who presents today to the office for a status post right 4th intercostal sprint. The patient reports 90% relief in her usual pain following the procedure. She has some residual soreness from the procedure with sideways movements. She turns off the device at night. Past procedures: 12/24/22: Peripheral Nerve Stimulation Temporary Lead Placement, Ultrasound and Fluoroscopy-Guided, 4th Intercostal Nerve, Right: excellent initial response, therapy ongoing 11/10/22: Right AC joint injection and subacromial bursa injection under US guidance: % relief. 11/03/22: Right diagnostic suprascapular nerve block, US guided: 100% numbness for 24 hours, but it did not affect her upper lateral thoracic/axilla pain. 10/20/22: Right 4th/5th intercostal nerve block, ultrasound-guided: >80% relief for a day for chest wall pain. 10/01/22: Intercostal nerve block, right, 8th and 9th, ultrasound-guided: inadequate mapping. 08/20/2022: Thoracic Medial Branch Block, Right, T8, T9, T10 medial branches: 50% relief for 2 hours. 07/02/2022: Interlaminar epidural steroid injection, C7/T1, Right parasaggital: 40% relief. [facility], [facility] Medical History (Updated 10/20/22 @ 10:54 by Jerald Varner MD) BPPV (benign paroxysmal positional vertigo) Fibromyalgia History of smoking Osteoarthritis, shoulder Surgical History History of appendectomy History of removal of ovarian cyst History of wisdom tooth extraction Family History Father Medical history unknown Mother CVD (cardiovascular disease) Family/Other FH: mental illness Social History Housing: Apartment Alcohol intake: never Patient Tobacco Use Status: Former Tobacco user e-Cigarette/Vaping Use: Never Used Second Hand Smoke Exposure: No Current occupational status: retired and disabled Cognitive needs: No Hearing needs: No Vision needs: Yes (wear glasses) Review of Systems Const All systems reviewed & are unremarkable except as noted in HPI and below Physical Exam Vital Signs: Last Vital Signs Pulse 64 12/29/22 13:12 Resp 14 12/29/22 13:12 BP 132/63 12/29/22 13:12 Pulse Ox 96 12/29/22 13:12 Oxygen Delivery Method Room Air 12/29/22 13:12 BMI result Body Mass Index 32.5 General: Appears afebrile. Alert and oriented. Mood and affect appropriate. Follows and participates in conversation appropriately. Respiratory effort is unlabored. Able to transition from sit to stand unassisted. Ambulates with bilaterally normal heel strike and toe off. Lead insertion site is clean, dry and intact. Dressing change in the office today. Results Reviewed Results Reviewed: No imaging is available for review. Assessment & Plan Assessment & Plan (1) Intercostal neuralgia: Code(s): G58.8 - Other specified mononeuropathies Plan The dressing was changed today in the office. The patient will follow-up in seven weeks for removal of sprint device. Scribed for Dr. Varner by Pedrito Tran, director medical surgical, on 12/29/2022. I, Dr. Varner, have personally reviewed and agree with the information entered by the scribe. Coding Level of Care Code Est Pt Level 2 (60738) Diagnoses Intercostal neuralgia G58.8
== END 2022-12-29 13:32 | disposition home or self-care (01) ==
PROVIDERS: PCP Physician Assistant; Visit Provider Internal Medicine
DX: G58.8 Other specified mononeuropathies (principal)
CPT/HCPCS: 99024

== ENCOUNTER → 2022-12-29 12:59 | Outpatient (BNVA) | payer MEDICARE, SELFPAY | PROVIDERS: PCP Physician Assistant; Visit Provider Internal Medicine | DX: G58.8 Other specified mononeuropathies (principal) | CPT/HCPCS: 99212 ==

== ENCOUNTER 2023-02-23 13:05 | Outpatient (AMB) | payer MEDICARE, SELFPAY ==
[2023-02-23 13:07] VITALS: BP 144/78; PULSE 73; RESP 12; O2SAT 96; BMI 32.7
--- NOTE | 2023-02-23 13:07 | MHC.OFFVIS ---
Intake Vital Signs 02/23/23 13:07 Height 5 ft 1 in Weight 173 lb BMI 32.7 BP 144/78 H Blood Pressure Location Lt brachial Position Sitting Respiration 12 Pulse 73 Pulse Source Pulse Oximeter Pulse Oximetry (%) 96 Oxygen Delivery Method Room Air Intake Visit Reasons: Sprint removal/Confirmed Allergies tramadol Allergy (Mild, Verified 02/23/23 13:08) Unknown fentanyl [From DURAGESIC] Adverse Reaction (Intermediate, Verified 02/23/23 13:08) NAUSEA & VOMITING tizanidine Adverse Reaction (Intermediate, Verified 02/23/23 13:08) fatigue states multiple meds does not Allergy (Unknown, Uncoded 02/23/23 13:08) Unknown Medication List - Last Reconciled 02/23/23 by Chelsi Easley LPN blood sugar diagnostic (MeteorTouch Verio test strips) USE ONE STRIP THREE TIMES A DAY hydrochlorothiazide 25 mg PO QAM ibuprofen 800 mg PO .HS insulin glargine (Basaglar KwikPen U-100 Insulin) 25 units (0.25 mL) subcut BEDTIME 30 days insulin regular human (Novolin R FlexPen) 1 sliding scale dose subcut USEASDIRECTD lancets (OneTouch Delica Lancets) 1 gauge topical TID 30 days lancets (OneTouch Delica Plus Lancet) Testing 3 times a day lisinopril 10 mg PO DAILY lorazepam 0.5 mg PO BID metformin 500 mg PO TID 3 months omeprazole 20 mg PO DAILY pen needle, diabetic (BD Marilyn 2nd Gen Pen Needle) USE TWICE DAILY pen needle, diabetic (BD Marilyn 2nd Gen Pen Needle) 1 ea miscellaneous BID simvastatin 10 mg PO DAILY HPI Sprint removal/Confirmed HPI Details 67-year-old female who presents today to the office for a follow-up. She has localized arm pain that is irritating and annoying and presents in a single spot. Her shoulder pain is stable. She has a limited ROM. The pain is described as starting in the right axilla and radiating into the triceps compartment. Her upper back pain is resolved post Sprint-device placement. Past procedures: 12/24/22: Peripheral Nerve Stimulation Temporary Lead Placement, Ultrasound and Fluoroscopy-Guided, 4th Intercostal Nerve, Right: Resolution of upper back radiating pain 11/10/22: Right AC joint injection and subacromial bursa injection under US guidance: 50% relief for 2 months 11/03/22: Right diagnostic suprascapular nerve block, US guided: 100% numbness for 24 hours, but it did not affect her upper lateral thoracic/axilla pain. 10/20/22: Right 4th/5th intercostal nerve block, ultrasound-guided: >80% relief for a day for chest wall pain. 10/01/22: Intercostal nerve block, right, 8th and 9th, ultrasound-guided: inadequate mapping. 08/20/2022: Thoracic Medial Branch Block, Right, T8, T9, T10 medial branches: 50% relief for 2 hours. 07/02/2022: Interlaminar epidural steroid injection, C7/T1, Right parasaggital: 40% relief. [facility] Medical History (Updated 02/26/23 @ 11:54 by Jerald Varner MD) BPPV (benign paroxysmal positional vertigo) Fibromyalgia History of smoking Osteoarthritis, shoulder Surgical History History of appendectomy History of removal of ovarian cyst History of wisdom tooth extraction Family History Father Medical history unknown Mother CVD (cardiovascular disease) Family/Other FH: mental illness Social History Housing: Apartment Alcohol intake: never Patient Tobacco Use Status: Former Tobacco user e-Cigarette/Vaping Use: Never Used Second Hand Smoke Exposure: No Current occupational status: retired and disabled Cognitive needs: No Hearing needs: No Vision needs: Yes (wear glasses) Review of Systems Const All systems reviewed & are unremarkable except as noted in HPI and below Physical Exam Vital Signs: Last Vital Signs Pulse 73 02/23/23 13:07 Resp 12 02/23/23 13:07 BP 144/78 H 02/23/23 13:07 Pulse Ox 96 02/23/23 13:07 Oxygen Delivery Method Room Air 02/23/23 13:07 BMI result Body Mass Index 32.7 General: Appears afebrile. Alert and oriented. Mood and affect appropriate. Follows and participates in conversation appropriately. Respiratory effort is unlabored. Able to transition from sit to stand unassisted. Ambulates with bilaterally normal heel strike and toe off. Tenderness overlying the triceps area on compression. Office Procedures Joint Injection/Drain Joint Injection/Drain Details: Right subacromial bursa injection, ultrasound guided Primary Site: right shoulder Prep: site was prepped using sterile technique Injected: 40 mg of, Kenalog, with 3 mL of, 0.25% bupivacaine and in the subcromial space Approach Used: posterolateral Procedure: The patient tolerated the procedure well Coding Details: An ultrasound image of the injection was taken and stored in the permanent record. - Acromioclavicular with ultrasound guidance Procedure code (CPT) selection complete Results Reviewed Results Reviewed: No imaging is available for review. Assessment & Plan Assessment & Plan (1) Right shoulder pain: Code(s): M25.511 - Pain in right shoulder Qualifiers: Chronicity: chronic Qualified Code(s): M25.511 - Pain in right shoulder; G89.29 - Other chronic pain (2) Adhesive capsulitis of right shoulder: Code(s): M75.01 - Adhesive capsulitis of right shoulder (3) Upper arm pain: Code(s): M79.629 - Pain in unspecified upper arm Plan Patient is status post right subacromial bursa injection. Patient tolerated procedure well and was discharged home in stable condition with discharge instructions. All questions were answered. For longer-term relief of her shoulder, axilla and upper arm symptoms, we will schedule her for a temporary right axillary nerve stimulator trial for intractable right shoulder and upper extremity pain. Discussed the risks and benefits of the procedure with the patient in detail. All questions were answered. The patient is on board with the plan. Justification for interventional therapy: ? Patient with average pain > 6/10 ? Patient has exhausted conservative therapy including oral medications and PT ? Patient unable to tolerate physical therapy due to pain Scribed for Dr. Varner by Pedrito Tran, medical claims processor, on 02/23/2023. I, Dr. Varner, have personally reviewed and agree with the information entered by the scribe. Coding Level of Care Code Est Pt Level 4 (90264) Diagnoses Chronic right shoulder pain M25.511; G89.29 Chronicity: chronic Adhesive capsulitis of right shoulder M75.01 Upper arm pain M79.629 CPT Codes Coding - Joint 6: 54233 - Acromioclavicular with ultrasound guidance ([id number])
== END 2023-02-23 13:51 | disposition home or self-care (01) ==
PROVIDERS: PCP Physician Assistant; Visit Provider Internal Medicine
DX: M25.511 Pain in right shoulder (principal); G89.29 Other chronic pain; M75.01 Adhesive capsulitis of right shoulder; M79.629 Pain in unspecified upper arm
CPT/HCPCS: 20606; 99214

== ENCOUNTER → 2023-02-23 13:05 | Outpatient (BNVA) | payer MEDICARE, SELFPAY | PROVIDERS: PCP Physician Assistant; Visit Provider Internal Medicine | DX: M75.01 Adhesive capsulitis of right shoulder (principal); M19.011 Primary osteoarthritis, right shoulder; M25.511 Pain in right shoulder; G89.29 Other chronic pain; M79.7 Fibromyalgia | CPT/HCPCS: 20606; 99212; J0665; J3301 ==

== ENCOUNTER 2023-03-25 13:23 | Outpatient (AMB) | payer MEDICARE, SELFPAY ==
--- NOTE | 2023-03-25 13:26 | AM.OFFVISMDC ---
Intake Vital Signs 03/25/23 13:27 Height 5 ft 1 in Weight 171 lb 0.6 oz BMI 32.3 BP 132/80 Blood Pressure Location Lt brachial Position Sitting Pulse 84 Pulse Source Pulse Oximeter Pulse Oximetry (%) 99 Oxygen Delivery Method Room Air Intake Visit Reasons: AWV G0438 Intake Note: Patient is here for an Annual Wellness Visit. Certified Wellness Program Manager Required: No Allergies tramadol Allergy (Mild, Verified 03/25/23 13:27) Unknown fentanyl [From DURAGESIC] Adverse Reaction (Intermediate, Verified 03/25/23 13:27) NAUSEA & VOMITING tizanidine Adverse Reaction (Intermediate, Verified 03/25/23 13:27) fatigue states multiple meds does not Allergy (Unknown, Uncoded 03/25/23 13:27) Unknown HPI AWV G0438 HPI Details Patient is a 67-year-old female here today for annual wellness visit. Patient's [place] of care and end of life planning has been discussed. Colon cancer screening: Colonoscopy done August 2022- normal Mammogram: Needs up-to-date mammogram-promises to call Vaccines: Up-to-date with COVID vaccines, tetanus vaccine, declines pneumonia and flu vaccines HPI Comments History of Present Illness Details reviewed past medical history- yes reviewed surgical / hospitalization history- yes reviewed current medications- yes reviewed family history- yes home safety throw rugs? grab bars? raised toilet seat? working smoke detectors? activities of daily living difficulty bathing or showering? difficulty dressing? difficulty using the toilet? difficulty getting in and out of bed? difficulty walking? receives help from other person's with any of the above tasks? instrumental activities of daily living uses telephone - gets to place out of walking distance- go shopping for groceries- repairs own meals- does own minor home maintenance- does own laundry- does own housework- manages own money- currently takes medication- end of life planning discussed advanced directives- yes advanced directives on file? discussed wishes expressed in advanced directives. fall risk have you had any falls with injuries in the past year? have you had 2 or more falls in the past year? fall risk assessment: [facility] Medical History BPPV (benign paroxysmal positional vertigo) Fibromyalgia History of smoking Osteoarthritis, shoulder Surgical History History of appendectomy History of removal of ovarian cyst History of wisdom tooth extraction Family History Father Medical history unknown Mother CVD (cardiovascular disease) Family/Other FH: mental illness Social History Housing: Apartment Alcohol intake: never Patient Tobacco Use Status: Former Tobacco user e-Cigarette/Vaping Use: Never Used Second Hand Smoke Exposure: No Current occupational status: retired and disabled Cognitive needs: No Hearing needs: No Vision needs: Yes (wear glasses) Questionnaire Medicare Wellness Checkup What [age] What gender do you identify with?: female During the past 4 weeks, how much have you been bothered by emotional problems such as feeling anxious, depressed, irritable, sad or downhearted, and blue?: not at all During the past 4 weeks, has your physical & emotional health limited your social activities with family, friends, neighbors, or groups?: moderately During the past 4 weeks, how much bodily pain have you generally had?: moderate pain During the past 4 weeks, was someone available to help you if you needed & wanted help?: yes, as much as I wanted During the past 4 weeks, what was the hardest physical activity you could do for at least 2 minutes?: light Can you get to places out of walking distance without help? (For eg., can you travel alone on buses, taxis or drive your car?): Yes Can you go shopping for groceries or clothes without someone's help?: No Can you prepare your own meals?: Yes Can you do your housework without help?: Yes Because of any health problems, do you need the help of another person with your personal care needs such as eating, bathing, dressing or getting around the house?: No Can you handle your own money without help?: Yes During the past 4 weeks, how would you rate your health in general?: fair During the past 4 weeks how have things been going for you?: good & bad parts about equal Are you having difficulties driving your car?: not applicable, I don't use a car Do you always fasten your seat belt when you are in a car?: yes, usually During past 4 weeks, have you been bothered by the following: never: Falling or dizzy when standing up, Sexual problems?, Trouble eating well?, Teeth or denture problems?, Problems using the telephone? and Tiredness or fatigue? Have you fallen 2 or more times in the past year?: No Are you afraid of falling?: No Are you a smoker?: no During the past 4 weeks, how many drinks of wine, beer, or other alcoholic beverages did you have?: no alcohol at all Do you exercise for about 20 minutes 3 or more times a week?: no, I usually do not exercise this much Have you been given information to help with the following?: no: Hazards in your house that might hurt you? and no: Keeping track of your medications? How often do you have trouble taking medicines the way you have been told to take them?: I always take medicine as prescribed How confident are you that you can control & manage most of your health problems?: somewhat confident What is your race?: White Mini Mental State Exam (MMSE) Orientation What is the (year) (season) (date) (day) (month)?: year, season and date Where are we (state) (county) (town or city) (hospital) (floor)?: county Score Score: 4 Activity of Daily Living Bathing - sponge bath, tub bath or shower: receives no assistance (gets in/out by self, if usual bathing means Dressing - getting clothes from closets & drawers, including inner/outer garments & fasteners.: gets clothes & gets completely dressed without help Toileting - going to the 'toilet room' for urine/bowel elimination & cleaning self/arranging clothes: goes to toilet room, cleans self, arranges clothes without help Transfer: moves in & out of bed and chair without help (may use support object) Continence: controls urination/bowel movements completely by self Feeding: feeds self without help Total Score: 0 Information obtained from: patient Using telephone: independent Traveling: independent Shopping: independent Preparing meals: independent Housework: independent Taking medicine: independent Managing money: independent PHQ-9 Over the last 2 weeks, how often have you been bothered by any of the following problems? 1. Little interest or pleasure in doing things: not at all 2. Feeling down, depressed, or hopeless: not at all 3. Trouble falling or staying asleep, or sleeping too much: not at all 4. Feeling tired or having little energy: not at all 5. Poor appetite or overeating: not at all 6. Feeling bad about yourself - or that you are a failure or have let yourself or your family down: not at all 7. Trouble concentrating on things, such as reading the newspaper or watching television: not at all 8. Moving or speaking so slowly that other people could have noticed. Or the opposite - being so fidgety or restless that you have been moving around a lot more than usual: not at all 9. Thoughts that you would be better off or of hurting yourself in some way: not at all Total score: 0 Depression Screening Interpretation: Negative Depression Screening Done: Yes 91599 - PHQ-9 Billing: Yes Source: Developed by Drs. Trevon Capps, Cici Macias, Lb Marks and colleagues, with an educational shantell from [employer]. Physical Exam Vital Signs: Last Vital Signs Pulse 84 03/25/23 13:27 BP 132/80 03/25/23 13:27 Pulse Ox 99 03/25/23 13:27 Oxygen Delivery Method Room Air 03/25/23 13:27 BMI result Body Mass Index 32.3 HEENT Other: hearing screening whisper test- pass Eyes Other: vision screening- 20/ 20 OS OD OU Other: urinary incontinence? Neuro Other: balance Romberg-normal tandem walk test- able walk-in turned test- able rise from sit to stand-within 2 seconds Results AMB Hemoglobin A1c AMB Hemoglobin A1c 6.8 % Last Edit by MAGGIE Tee on 03/25/23 13:36 Results Reviewed Results Reviewed: Laboratory Last Values Hgb A1c (Clinic) 6.8 % (4.0-6.0) H 03/25/23 13:02 Assessment & Plan Assessment & Plan (1) Encounter for annual wellness visit (AWV) in Medicare patient: Code(s): Z00.00 - Encounter for general adult medical examination without abnormal findings Plan: As per HPI. Orders: Orders Microalbumin, Random (w Creat) Today I10 - Essential (primary) hypertension Comprehensive [place]. Panel Fast Today I10 - Essential (primary) hypertension AMB Hemoglobin A1c Today E11.9 - Type 2 diabetes mellitus without complications Lipid Panel Today E78.2 - Mixed hyperlipidemia Medications: New meclizine 12.5 mg PO TID 5 days PRN 15 tabs 0RF dizziness Quality Reporting (2019) Depression/Bipolar (159/160/161/177) PHQ-9: Total score: 0 Coding Level of Care Code Medicare First (G0438) Diagnoses Encounter for annual wellness visit (AWV) in Medicare patient Z00.00 CPT Codes Advance Care Planning - Time spent: 1-15 minutes, not on file ([id number]) Advance Care Planning Advance Care Planning discussion: Exists, not on file Date of discussion: 03/25/23 Forms completed: LESLIE Time spent: 1-15 minutes, not on file Actual minutes spent: 4
[2023-03-25 13:27] VITALS: BP 132/80; PULSE 84; O2SAT 99; BMI 32.3
== END 2023-03-25 14:00 | disposition home or self-care (01) ==
PROVIDERS: PCP Physician Assistant; Visit Provider Physician Assistant
DX: Z00.00 Encounter for general adult medical examination without abnormal findings (principal); E11.9 Type 2 diabetes mellitus without complications
CPT/HCPCS: 1124F; 83036; G0438; G0439

== ENCOUNTER 2023-04-23 06:22 | Outpatient (REF) | payer MEDICARE, SELFPAY | END 2023-04-23 06:23 | disposition home or self-care (01) | LOC: CF 06:22 | PROVIDERS: Visit Provider Internal Medicine | DX: M25.511 Pain in right shoulder (principal); M79.621 Pain in right upper arm; G89.29 Other chronic pain | CPT/HCPCS: 64555; C1778 ==

== ENCOUNTER 2023-04-23 14:50 | Outpatient (AMB) | payer MEDICARE, SELFPAY ==
[2023-04-23 14:59] VITALS: BP 94/62; PULSE 74; O2SAT 97
--- NOTE | 2023-04-23 14:59 | A.OFFVIS_ITS ---
Intake Vital Signs 04/23/23 14:59 04/23/23 16:06 Height 5 ft 1 in BP 94/62 98/54 L Blood Pressure Location Rt brachial Lt brachial Position Sitting Sitting Pulse 74 72 Pulse Source Doppler Doppler Pulse Oximetry (%) 97 98 Oxygen Delivery Method Room Air Room Air Intake Visit Reasons: Right axillary Sprint Allergies tramadol Allergy (Mild, Verified 04/27/23 10:46) Unknown fentanyl [From DURAGESIC] Adverse Reaction (Intermediate, Verified 04/27/23 10:46) NAUSEA & VOMITING tizanidine Adverse Reaction (Intermediate, Verified 04/27/23 10:46) fatigue states multiple meds does not Allergy (Unknown, Uncoded 04/27/23 10:46) Unknown HPI Right axillary Sprint HPI Details Patient presents for scheduled procedure. Denies any recent cough, cold, infection, fever or other significant changes in medical history since last office visit. [facility] Medical History BPPV (benign paroxysmal positional vertigo) Fibromyalgia History of smoking Osteoarthritis, shoulder Surgical History History of appendectomy History of removal of ovarian cyst History of wisdom tooth extraction Family History Father Medical history unknown Mother CVD (cardiovascular disease) Family/Other FH: mental illness Social History Housing: Apartment Alcohol intake: never Patient Tobacco Use Status: Former Tobacco user e-Cigarette/Vaping Use: Never Used Second Hand Smoke Exposure: No Current occupational status: retired and disabled Cognitive needs: No Hearing needs: No Vision needs: Yes (wear glasses) Physical Exam Vital Signs: Last Vital Signs Pulse 72 04/23/23 16:06 BP 98/54 L 04/23/23 16:06 Pulse Ox 98 04/23/23 16:06 Oxygen Delivery Method Room Air 04/23/23 16:06 Office Procedures Details: Peripheral Nerve Stimulation Temporary Lead Placement, Ultrasound-Guided, Axillary Nerve, Right ? After the risks, benefits and alternatives were discussed with the patient and informed consent was obtained, patient was placed in the sitting position and padded to foster comfort. Appropriate skin and bony landmarks were identified using ultrasound, including the right posterior circumflex humeral artery. The skin overlying the needle entry site was prepped and draped in sterile fashion. After identifying and marking the intended target along the course of the axillary nerve, the skin around the planned entry point and the subcutaneous tissues were injected with local anesthetic. An introducer needle and stimulating probe were assembled, inserted and advanced along the intended course of the axillary nerve, taking care to maintain the proper depth of insertion as the introducer was advanced under ultrasound guidance. The needle was advanced to the quadrangular space. The introducer needle was delivered to a location in proximity to the nerve. Multiple stimulation parameters were used to deliver stimulation to the axillary nerve in concert with stimulating at multiple positions around the nerve. Nerve target acquisition was confirmed noting generation of sensory and mild motor effects (paresthesia, muscle tension, etc) in the shoulder and proximal arm; corresponding to the distribution of the axillary nerve. Various electrical parameter combinations were tested, and the lead location was adjusted (physically relocated under image guidance) until the patient indicated shoulder paresthesia and tension overlapping the distribution of the patient?s typical region of pain. The stimulating probe was removed from the introducer and a percutaneous lead was guided through the needle and delivered to a location in similar proximity to the nerve. Final location was verified with electrical stimulation and documented. The introducer needle was removed, and the exposed end of the percutaneous lead was attached to an external stimulator unit. Various electrical parameter combinations were again tested until the patient indicated paresthesia and muscle tension overlapping the distribution of the patient?s typical region of pain. After confirming that lead impedance was in the normal range, the external unit was detached, the needle was removed, and the lead was anchored at the skin. The needle entry site was occluded with dermabond. The lead was threaded into the connector block and electrical continuity and desired patient response was confirmed. The connector block was attached to the external stimulator unit. The site was covered with a sterile occlusive dressing. A final image was taken to document final placement. The patient was observed for stability of vital signs and comfort. Sprint PNS Device: Sprint PNS Device [id number] Percutaneous Peripheral Neuroelectrode Procedure: 41638 - Percutaneous Peripheral Neuroelectrode Procedure code (CPT) selection complete Sprint PNS Device: Sprint PNS Device [id number] Percutaneous Peripheral Neuroelectrode Procedure: 33524 - Percutaneous Peripheral Neuroelectrode Procedure code (CPT) selection complete Office Meds lidocaine (PF) 50 mg/5 mL (1 %) injection syringe Performing Provider: Jerald Varner MD Performing Location: [facility] Administered by: Jerald Varner MD on 04/23/23 15:54 Dose Route Admin Location Dispensed Lot Number Expiration Date [facility] 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 Patient tolerated procedure well and was discharged home in stable condition with discharge instructions. All questions were answered. We will follow-up via telephone or in clinic to assess response to therapy. A follow-up appointment was made during today's visit. Orders: Orders AMB Sprint PNS 04/23/23 M25.511 - Pain in right shoulder Jerald Varner MD [place] guidance in treatment room 04/23/23 M79.629 - Pain in unspecified upper arm K juan jose Montejo APRN, SURVEILLANCE [employer]ER[employer] TECHNICIAN Coding Level of Care Code Procedure Only Diagnoses Chronic right shoulder pain M25.511; G89.29 Chronicity: chronic CPT Codes Sprint PNS - Sprint PNS Device: Sprint PNS Device ([id number]) Sprint PNS - SPRINT: 62827 - Percutaneous Peripheral Neuroelectrode ([id number]) Sprint PNS - Sprint PNS Device: Sprint PNS Device ([id number]) Sprint PNS - SPRINT: 16479 - Percutaneous Peripheral Neuroelectrode ([id number]) Implantable Device Implantable Device Implantable Devices Qty Boiler Or Engine Operator Implant Date Expiration Date Analgesic PENS system 1 [employer] 04/23/23 09/26/24
[2023-04-23 16:06] VITALS: BP 98/54; PULSE 72; O2SAT 98
== END 2023-04-23 16:02 | disposition home or self-care (01) ==
LOC: HO.PMCPRC 14:50
PROVIDERS: PCP Physician Assistant; Visit Provider Internal Medicine
DX: M25.511 Pain in right shoulder (principal)
CPT/HCPCS: 64555

== ENCOUNTER 2023-04-27 10:38 | Outpatient (AMB) | payer MEDICARE, SELFPAY ==
--- NOTE | 2023-04-27 10:42 | A.OFFVIS_ITS ---
Intake Vital Signs 04/27/23 10:44 Height 5 ft 1 in Weight 170 lb BMI 32.1 BP 127/64 Blood Pressure Location Lt brachial Position Sitting Respiration 12 Pulse 74 Pulse Source Pulse Oximeter Pulse Oximetry (%) 97 Oxygen Delivery Method Room Air Intake Visit Reasons: s/p right axillary nerve Sprint - Confirmed Allergies tramadol Allergy (Mild, Verified 04/27/23 10:46) Unknown fentanyl [From DURAGESIC] Adverse Reaction (Intermediate, Verified 04/27/23 10:46) NAUSEA & VOMITING tizanidine Adverse Reaction (Intermediate, Verified 04/27/23 10:46) fatigue states multiple meds does not Allergy (Unknown, Uncoded 04/27/23 10:46) Unknown Medication List - Last Reconciled 04/27/23 by Chelsi Easley LPN blood sugar diagnostic (CrowdTransferTouch Verio test strips) USE ONE STRIP THREE TIMES A DAY hydrochlorothiazide 25 mg PO QAM ibuprofen 800 mg PO .HS insulin glargine (Basaglar KwikPen U-100 Insulin) 25 units (0.25 mL) subcut BEDTIME 30 days insulin regular human (Novolin R FlexPen) 1 sliding scale dose subcut USEASDIRECTD lancets (OneTouch Delica Lancets) 1 gauge topical TID 30 days lancets (OneTouch Delica Plus Lancet) Testing 3 times a day lisinopril 10 mg PO DAILY lorazepam 0.5 mg PO BID meclizine 12.5 mg PO TID PRN 5 days metformin 500 mg PO TID 3 months omeprazole 20 mg PO DAILY pen needle, diabetic (BD Marilyn 2nd Gen Pen Needle) USE TWICE DAILY pen needle, diabetic (BD Marilyn 2nd Gen Pen Needle) 1 ea miscellaneous BID simvastatin 10 mg PO DAILY HPI s/p right axillary nerve Sprint - Confirmed HPI Details 67-year-old female who presents today to the office for a status post right axillary nerve sprint. She reports pain and difficulty lifting her right arm post-procedure. She is currently using the device at 35. She has uncomfortable sensations with ?jumping sensations in the arm muscles? when increasing the device setting. She was taking four tablets of Advil with Tylenol and ibuprofen. She states that her device gets disconnected at night while sleeping. Overall her condition has steadily improved over the past few days as she has gotten over the postprocedure discomfort. She is interested in continuing the therapy at a low intensity to minimize abnormal paresthesia sensations leading to deltoid activation. Past procedures: 04/23/23: Peripheral Nerve Stimulation T emporary Lead Placement, Ultrasound- Guided, Axillary Nerve, Right: 02/23/23: Right subacromial bursa inject ion, ultrasound guided: 12/24/22: Peripheral Nerve Stimulation T emporary Lead Placement, Ultrasound and Fluoroscopy-Guided, 4th Intercostal Nerve, Right: Resolution of upper back radiating pain 11/10/22: Right AC joint injection and s ubacromial bursa injection under US guidance: 50% relief for 2 months 11/03/22: Right diagnostic suprascapular nerve block, US guided: 100% numbness for 24 hours, but it did not affect her upper lateral thoracic/axilla pain. 10/20/22: Right 4th/5th intercostal nerv e block, ultrasound-guided: >80% relief for a day for chest wall pain. 10/01/22: Intercostal nerve block, right , 8th and 9th, ultrasound-guided: inadequate mapping. 08/20/2022: Thoracic Medial Branch Block , Right, T8, T9, T10 medial branches: 50% relief for 2 hours. 07/02/2022: Interlaminar epidural steroi d injection, C7/T1, Right parasaggital: 40% relief. [facility] Medical History BPPV (benign paroxysmal positional vertigo) Fibromyalgia History of smoking Osteoarthritis, shoulder Surgical History History of appendectomy History of removal of ovarian cyst History of wisdom tooth extraction Family History Father Medical history unknown Mother CVD (cardiovascular disease) Family/Other FH: mental illness Social History Housing: Apartment Alcohol intake: never Patient Tobacco Use Status: Former Tobacco user e-Cigarette/Vaping Use: Never Used Second Hand Smoke Exposure: No Current occupational status: retired and disabled Cognitive needs: No Hearing needs: No Vision needs: Yes (wear glasses) Review of Systems Const All systems reviewed & are unremarkable except as noted in HPI and below Physical Exam Vital Signs: Last Vital Signs Pulse 74 04/27/23 10:44 Resp 12 04/27/23 10:44 BP 127/64 04/27/23 10:44 Pulse Ox 97 04/27/23 10:44 Oxygen Delivery Method Room Air 04/27/23 10:44 BMI result Body Mass Index 32.1 General: Appears afebrile. Alert and oriented. Mood and affect appropriate. Follows and participates in conversation appropriately. Respiratory effort is unlabored. Able to transition from sit to stand unassisted. Ambulates with bilaterally normal heel strike and toe off. Incision site is clean, dry, and intact. Results Reviewed Results Reviewed: No imaging is available for review. Assessment & Plan Assessment & Plan (1) Upper arm pain: Code(s): M79.629 - Pain in unspecified upper arm Qualifiers: Laterality: right Qualified Code(s): M79.621 - Pain in right upper arm (2) Right shoulder pain: Code(s): M25.511 - Pain in right shoulder Qualifiers: Chronicity: chronic Qualified Code(s): M25.511 - Pain in right shoulder; G89.29 - Other chronic pain Plan The patient is interested in continuing the therapy at low intensity to minimize the abnormal paresthesia sensations. We adjusted the device setting today to 25. I advised the patient to disconnect the device at night while sleeping. The patient will follow up as scheduled. Scribed for Dr. Varner by Pedrito Tran, nuclear medicine medical director, on 04/27/2023. I, Dr. Varner, have personally reviewed and agree with the information entered by the scribe. Coding Level of Care Code Est Pt Level 3 (09811) Diagnoses Pain of right upper arm M79.621 Laterality: right Chronic right shoulder pain M25.511; G89.29 Chronicity: chronic
[2023-04-27 10:44] VITALS: BP 127/64; PULSE 74; RESP 12; O2SAT 97; BMI 32.1
== END 2023-04-27 10:54 | disposition home or self-care (01) ==
PROVIDERS: PCP Physician Assistant; Visit Provider Internal Medicine
DX: M79.621 Pain in right upper arm (principal); M25.511 Pain in right shoulder; G89.29 Other chronic pain
CPT/HCPCS: 99024

== ENCOUNTER → 2023-04-27 10:38 | Outpatient (BNVA) | payer MEDICARE, SELFPAY | PROVIDERS: PCP Physician Assistant; Visit Provider Internal Medicine | DX: M79.621 Pain in right upper arm (principal); M25.511 Pain in right shoulder; G89.29 Other chronic pain | CPT/HCPCS: 99212 ==

== ENCOUNTER 2023-06-19 08:01 | Outpatient (AMB) | payer MEDICARE, SELFPAY ==
--- NOTE | 2023-06-19 08:06 | A.OFFVIS_ITS ---
Intake Vital Signs 06/19/23 08:07 Height 5 ft 1 in Weight 170 lb BMI 32.1 BP 126/71 Blood Pressure Location Lt brachial Position Sitting Respiration 12 Pulse 66 Pulse Source Pulse Oximeter Pulse Oximetry (%) 98 Oxygen Delivery Method Room Air Intake Visit Reasons: Sprint removal Allergies tramadol Allergy (Mild, Verified 06/19/23 08:08) Unknown fentanyl [From DURAGESIC] Adverse Reaction (Intermediate, Verified 06/19/23 08:08) NAUSEA & VOMITING tizanidine Adverse Reaction (Intermediate, Verified 06/19/23 08:08) fatigue states multiple meds does not Allergy (Unknown, Uncoded 06/19/23 08:08) Unknown Medication List - Last Reconciled 06/19/23 by Chelsi Easley LPN blood sugar diagnostic ([employer] Verio test strips) USE ONE STRIP THREE TIMES A DAY hydrochlorothiazide 25 mg PO QAM ibuprofen 800 mg PO .HS insulin glargine (Basaglar KwikPen U-100 Insulin) 25 units (0.25 mL) subcut BEDTIME 30 days insulin regular human (Novolin R FlexPen) 1 sliding scale dose subcut USEASDIRECTD lancets ([employer] Delica Lancets) 1 gauge topical TID 30 days lancets (OneTouch Delica Plus Lancet) Testing 3 times a day lisinopril 10 mg PO DAILY lorazepam 0.5 mg PO BID meclizine 12.5 mg PO TID PRN 5 days metformin 500 mg PO TID 3 months omeprazole 20 mg PO DAILY pen needle, diabetic (BD Marilyn 2nd Gen Pen Needle) USE TWICE DAILY pen needle, diabetic (BD Marilyn 2nd Gen Pen Needle) 1 ea miscellaneous BID simvastatin 10 mg PO DAILY HPI Sprint removal HPI Details 67-year-old female who presents today to the office for slurry sprint removal. She denies any significant relief from the last procedure. She reports pain in her shoulder with movements. It is the old pain. She also reports neck pain that radiates down to her right arm, which is worse when lying down or moving sideways. She asked Tavo to change the program down to 19, but she still experienced paresthesia sensations in her muscles. She has also completed physical therapy in the past. She has not tried lidocaine patches for her upper back pain. Past procedures: 04/23/23: Peripheral Nerve Stimulation T emporary Lead Placement, Ultrasound- Guided, Axillary Nerve, Right: No significant relief 02/23/23: Right subacromial bursa inject ion, ultrasound guided: No significant relief 12/24/22: Peripheral Nerve Stimulation T emporary Lead Placement, Ultrasound and Fluoroscopy-Guided, 4th Intercostal Nerve, Right: Resolution of upper back radiating pain 11/10/22: Right AC joint injection and s ubacromial bursa injection under US guidance: 50% relief for 2 months 11/03/22: Right diagnostic suprascapular nerve block, US guided: 100% numbness for 24 hours, but it did not affect her upper lateral thoracic/axilla pain. 10/20/22: Right 4th/5th intercostal nerv e block, ultrasound-guided: >80% relief for a day for chest wall pain. 10/01/22: Intercostal nerve block, right , 8th and 9th, ultrasound-guided: inadequate mapping. 08/20/2022: Thoracic Medial Branch Block , Right, T8, T9, T10 medial branches: 50% relief for 2 hours. 07/02/2022: Interlaminar epidural steroi d injection, C7/T1, Right parasaggital: 40% relief. [facility] Medical History BPPV (benign paroxysmal positional vertigo) Fibromyalgia History of smoking Osteoarthritis, shoulder Surgical History History of appendectomy History of removal of ovarian cyst History of wisdom tooth extraction Family History Father Medical history unknown Mother CVD (cardiovascular disease) Family/Other FH: mental illness Social History Housing: Apartment Alcohol intake: never Patient Tobacco Use Status: Former Tobacco user e-Cigarette/Vaping Use: Never Used Second Hand Smoke Exposure: No Current occupational status: retired and disabled Cognitive needs: No Hearing needs: No Vision needs: Yes (wear glasses) Review of Systems Const All systems reviewed & are unremarkable except as noted in HPI and below Physical Exam Vital Signs: Last Vital Signs Pulse 66 06/19/23 08:07 Resp 12 06/19/23 08:07 BP 126/71 06/19/23 08:07 Pulse Ox 98 06/19/23 08:07 Oxygen Delivery Method Room Air 06/19/23 08:07 BMI result Body Mass Index 32.1 General: Appears afebrile. Alert and oriented. Mood and affect appropriate. Follows and participates in conversation appropriately. Respiratory effort is unlabored. Able to transition from sit to stand unassisted. Ambulates with bilaterally normal heel strike and toe off. Neck range of motion reproduces pain. Facet loading is positive on both sides. Axial rotation reproduces pain as well. She is unable to rotate to the right more than 30 degrees. Results Reviewed Results Reviewed: Cervical MRI report shows multilevel degenerative changes with [id number] central stenosis at C4-5 as well as foraminal stenosis. Assessment & Plan Assessment & Plan (1) Cervical radiculopathy: Code(s): M54.12 - Radiculopathy, cervical region (2) Thoracic radiculopathy: Code(s): M54.14 - Radiculopathy, thoracic region Plan We will schedule her for a right C7-T1 parasagittal TODD for the neck pain radiating to the arm. Discussed the risks and benefits of the procedure with the patient in detail. All questions were answered. The patient is on board with the plan. I prescribed lidocaine 5% topical patches for her upper back pain to see if that helped with those symptoms. Justification for interventional therapy: Patient with average pain > 6/10 Patient has exhausted conservative therapy Patient unable to tolerate physical therapy due to pain Patient has a good understanding of their pain condition and has appropriate mental and social support Scribed for Dr. Varner by Pedrito Tran, medical technologist microbiology, on 06/19/2023. I, Dr. Varner, have personally reviewed and agree with the information entered by the scribe. Medications: New lidocaine 5% leave on most painful area for up to 12 hrs 1 patch topical DAILY 30 ea 11RF Coding Level of Care Code Est Pt Level 4 (17969) Diagnoses Cervical radiculopathy M54.12 Thoracic radiculopathy M54.14
[2023-06-19 08:07] VITALS: BP 126/71; PULSE 66; RESP 12; O2SAT 98; BMI 32.1
== END 2023-06-19 08:31 | disposition home or self-care (01) ==
PROVIDERS: PCP Physician Assistant; Visit Provider Internal Medicine
DX: M54.12 Radiculopathy, cervical region (principal); M54.14 Radiculopathy, thoracic region
CPT/HCPCS: 99214

== ENCOUNTER → 2023-06-19 08:01 | Outpatient (BNVA) | payer MEDICARE, SELFPAY | PROVIDERS: PCP Physician Assistant; Visit Provider Internal Medicine | DX: M54.12 Radiculopathy, cervical region (principal); M54.14 Radiculopathy, thoracic region | CPT/HCPCS: 99212 ==

== ENCOUNTER 2023-06-25 07:31 | Outpatient (REF) | payer MEDICARE, SELFPAY ==
--- NOTE | ~2023-06-25 | FL_ITS ---
EXAMINATION: XR FLUOROSCOPY WITH IMAGES CLINICAL INFORMATION: Cervical radiculopathy. COMPARISON: Cervical spine radiographs dated 01/30/2021. TECHNIQUE: Fluoroscopy Supervised By: Dr. Jerald Varner. Fluoroscopy Time: 0.3 minutes.. Cumulative Dose: 3.65 mGy. DAP: 0.0165 mGym2. Images: 2. FINDINGS: The submitted images show an injection needle with tip positioned in the vicinity of the posterior elements in the lower cervical spine. There is a small amount of injected epidural contrast. FL/FL guidance in treatment room IMPRESSION: Intraoperative fluoroscopic guidance is provided during cervical spinal pain management procedure. Please see the patient's Operative Report for full procedural details.
== END 2023-06-25 07:32 | disposition home or self-care (01) ==
LOC: CF 07:31
PROVIDERS: Visit Provider Internal Medicine
DX: M54.12 Radiculopathy, cervical region (principal)
CPT/HCPCS: 62321; J1100; Q9967

== ENCOUNTER 2023-06-25 13:13 | Outpatient (AMB) | payer MEDICARE, SELFPAY ==
[2023-06-25 13:57] VITALS: BP 120/68; PULSE 68; RESP 16; O2SAT 99; BMI 32.1
--- NOTE | 2023-06-25 13:57 | A.OFFVIS_ITS ---
Intake Vital Signs 06/25/23 13:57 06/25/23 13:58 Height 5 ft 1 in Weight 170 lb BMI 32.1 BP 120/68 126/74 Blood Pressure Location Lt brachial Lt brachial Position Sitting Sitting Respiration 16 Pulse 68 70 Pulse Source Pulse Oximeter Pulse Oximeter Pulse Oximetry (%) 99 98 Oxygen Delivery Method Room Air Room Air Comment Pre-Op Post-Op Intake Visit Reasons: right C7-T1 parasagittal TODD Allergies tramadol Allergy (Mild, Verified 06/19/23 08:08) Unknown fentanyl [From DURAGESIC] Adverse Reaction (Intermediate, Verified 06/19/23 08:08) NAUSEA & VOMITING tizanidine Adverse Reaction (Intermediate, Verified 06/19/23 08:08) fatigue states multiple meds does not Allergy (Unknown, Uncoded 06/19/23 08:08) Unknown HPI right C7-T1 parasagittal TODD HPI Details Patient presents for scheduled procedure. Denies any recent cough, cold, infection, fever or other significant changes in medical history since last office visit. [facility] Medical History BPPV (benign paroxysmal positional vertigo) Fibromyalgia History of smoking Osteoarthritis, shoulder Surgical History History of appendectomy History of removal of ovarian cyst History of wisdom tooth extraction Family History Father Medical history unknown Mother CVD (cardiovascular disease) Family/Other FH: mental illness Social History Housing: Apartment Alcohol intake: never Patient Tobacco Use Status: Former Tobacco user e-Cigarette/Vaping Use: Never Used Second Hand Smoke Exposure: No Current occupational status: retired and disabled Cognitive needs: No Hearing needs: No Vision needs: Yes (wear glasses) Physical Exam Vital Signs: Last Vital Signs Pulse 70 06/25/23 13:58 Resp 16 06/25/23 13:57 BP 126/74 06/25/23 13:58 Pulse Ox 98 06/25/23 13:58 Oxygen Delivery Method Room Air 06/25/23 13:58 BMI result Body Mass Index 32.1 Office Procedures Joint Injection/Drain Joint Injection/Drain Details: Interlaminar epidural steroid injection, C7/T1, right parasaggital After obtaining written consent, pre-procedure blood pressure and heart rate were stable and recorded in the nursing record. The patient was placed in the prone position. The lumbar area was widely prepped with chloraprep and draped in sterile fashion. Fluoroscopic guidance was used to identify the desired interlaminar space and for needle placement. Subcutaneous 0.5% lidocaine was used to anesthetize the skin overlying the target. A 20-gauge Burger needle was advanced to the epidural space using loss of resistance to contrast technique under fluoroscopic AP and contralateral oblique views. There was no evidence of heme or CSF and no paresthesias were elicited with needle placement. Confirmation of epidural needle placement was performed with 1cc of omnipaque 180. Next 3 ml 0.5% lidocaine mixed with 10 mg dexamethasone was administered epidurally with no pain elicited on injection. The needle tract tubing was then cleared with 1 ml of 0.5% lidocaine. The needle was removed, skin cleansed and a sterile bandage was applied. The patient tolerated the procedure well and no complications were encountered. Following the procedure the patient's vital signs were stable. The patient was discharged home in good condition with post-procedural instructions. Time Out: Immediately prior to the procedure, the following was verbally confirmed that there is a signed consent form and that the correct patient, planned procedure, site and side are consistent with documentation and that necessary equipment and/or blood products are available prior to the start of the case. Complications: none EBL: <5 cc Coding 14179 - Cervical Epidural/Interlaminar with fluoroscopy Procedure code (CPT) selection complete Assessment & Plan Assessment & Plan (1) Cervical radiculopathy: Code(s): M54.12 - Radiculopathy, cervical region Plan Patient is status post right parasagittal C7/T1 interlaminar TODD. Patient tolerated procedure well and was discharged home in stable condition with discharge instructions. All questions were answered. We will follow-up via telephone or in clinic to assess response to therapy. A follow-up appointment was made during today's visit. Orders: Orders FL guidance in treatment room Today M54.12 - Radiculopathy, cervical region Coding Level of Care Code Procedure Only Diagnoses Cervical radiculopathy M54.12 CPT Codes Coding - Joint 10: 94329 - Cervical Epidural/Interlaminar with fluoroscopy ([id number])
[2023-06-25 13:58] VITALS: BP 126/74; PULSE 70; O2SAT 98
== END 2023-06-25 13:59 | disposition home or self-care (01) ==
LOC: HO.PMCPRC 13:13
PROVIDERS: PCP Physician Assistant; Visit Provider Internal Medicine
DX: M54.12 Radiculopathy, cervical region (principal)
CPT/HCPCS: 62321

== ENCOUNTER 2023-07-24 11:33 | Outpatient (AMB) | payer MEDICARE, SELFPAY ==
--- NOTE | 2023-07-24 11:40 | MHC.OFFVIS ---
Vital Signs 07/24/23 11:42 Height 5 ft 1 in Weight 172 lb BMI 32.5 BP 117/58 L Blood Pressure Location Lt brachial Position Sitting Respiration 14 Pulse 85 Pulse Source Pulse Oximeter Pulse Oximetry (%) 97 Oxygen Delivery Method Room Air Intake Visit Reasons: s/p right C7-T1 parasagittal TODD Allergies tramadol Allergy (Mild, Verified 07/24/23 11:44) Unknown fentanyl [From DURAGESIC] Adverse Reaction (Intermediate, Verified 07/24/23 11:44) NAUSEA & VOMITING tizanidine Adverse Reaction (Intermediate, Verified 07/24/23 11:44) fatigue states multiple meds does not Allergy (Unknown, Uncoded 07/24/23 11:44) Unknown Medication List - Last Reconciled 07/24/23 by Chelsi Easley LPN blood sugar diagnostic (OneTouch Verio test strips) USE ONE STRIP THREE TIMES A DAY hydrochlorothiazide 25 mg PO QAM ibuprofen 800 mg PO .HS insulin glargine (Basaglar KwikPen U-100 Insulin) 25 units (0.25 mL) subcut BEDTIME 30 days insulin regular human (Novolin R FlexPen) 1 sliding scale dose subcut USEASDIRECTD lancets (OneTouch Delica Lancets) 1 gauge topical TID 30 days lancets (OneTouch Delica Plus Lancet) Testing 3 times a day lidocaine 5% 1 patch topical DAILY lisinopril 10 mg PO DAILY lorazepam 0.5 mg PO BID meclizine 12.5 mg PO TID PRN 5 days metformin 500 mg PO TID 3 months omeprazole 20 mg PO DAILY pen needle, diabetic (BD Marilyn 2nd Gen Pen Needle) USE TWICE DAILY pen needle, diabetic (BD Marilyn 2nd Gen Pen Needle) 1 ea miscellaneous BID simvastatin 10 mg PO DAILY HPI HPI s/p right C7-T1 parasagittal TODD: Details: 67-year-old female who presents today to the office for a status post right C7-T1 parasagittal TODD. The patient reports >60% relief following the procedure. Her arm pain was improved. She reports mild pain with certain movements. She has not tried lidocaine patches. She has been using her family members lidocaine patches at home. She still has pain with lying down. She has difficulty and worsening of the pain doing her ADLs. Past procedures 06/25/23: Interlaminar epidural steroid injection, C7/T1, right parasaggital: 60% relief. 04/23/23: Peripheral Nerve Stimulation Temporary Lead Placement, Ultrasound-Guided, Axillary Nerve, Right: No significant relief 02/23/23: Right subacromial bursa injection, ultrasound guided: No significant relief 12/24/22: Peripheral Nerve Stimulation Temporary Lead Placement, Ultrasound and Fluoroscopy-Guided, 4th Intercostal Nerve, Right: Resolution of upper back radiating pain 11/10/22: Right AC joint injection and subacromial bursa injection under US guidance: 50% relief for 2 months 11/03/22: Right diagnostic suprascapular nerve block, US guided: 100% numbness for 24 hours, but it did not affect her upper lateral thoracic/axilla pain. 10/20/22: Right 4th/5th intercostal nerve block, ultrasound-guided: >80% relief for a day for chest wall pain. 10/01/22: Intercostal nerve block, right, 8th and 9th, ultrasound-guided: inadequate mapping. 08/20/2022: Thoracic Medial Branch Block, Right, T8, T9, T10 medial branches: 50% relief for 2 hours. 07/02/2022: Interlaminar epidural steroid injection, C7/T1, Right parasaggital: 40% relief. [facility] Medical History BPPV (benign paroxysmal positional vertigo) Fibromyalgia History of smoking Osteoarthritis, shoulder Surgical History History of appendectomy History of removal of ovarian cyst History of wisdom tooth extraction Family History Father Medical history unknown Mother CVD (cardiovascular disease) Family/Other FH: mental illness Social History Housing: Apartment Alcohol intake: never Patient Tobacco Use Status: Former Tobacco user e-Cigarette/Vaping Use: Never Used Second Hand Smoke Exposure: No Current occupational status: retired and disabled Cognitive needs: No Hearing needs: No Vision needs: Yes (wear glasses) Review of Systems Const All systems reviewed & are unremarkable except as noted in HPI and below Physical Exam Vital Signs: Last Vital Signs Pulse 85 07/24/23 11:42 Resp 14 07/24/23 11:42 BP 117/58 L 07/24/23 11:42 Pulse Ox 97 07/24/23 11:42 Oxygen Delivery Method Room Air 07/24/23 11:42 BMI result Body Mass Index 32.5 General: Appears afebrile. Alert and oriented. Mood and affect appropriate. Follows and participates in conversation appropriately. Respiratory effort is unlabored. Able to transition from sit to stand unassisted. Ambulates with bilaterally normal heel strike and toe off. Results Reviewed Results Reviewed: No imaging is available for review. 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 Discussed the risks and benefits of the procedure with the patient in detail. All questions were answered. The patient is on board with the plan. Justification for interventional therapy: ? Patient with average pain > 6/10 ? Patient has exhausted conservative therapy ? Patient unable to tolerate physical therapy due to pain. ? Previous diagnostic injection provided 80% relief for a day for chest wall pain. . Patient has a good understanding of their pain condition and has appropriate mental and social support Scribed for Dr. Varner by Pedrito Tran, director medical science, on 07/24/2023. I, Dr. Varner, have personally reviewed and agree with the information entered by the scribe. Coding Level of Care Code Est Pt Level 4 (66467) Diagnoses Intercostal neuralgia G58.8 Thoracic spondylosis M47.814
[2023-07-24 11:42] VITALS: BP 117/58; PULSE 85; RESP 14; O2SAT 97; BMI 32.5
== END 2023-07-24 11:58 | disposition home or self-care (01) ==
PROVIDERS: PCP Physician Assistant; Visit Provider Internal Medicine
DX: G58.8 Other specified mononeuropathies (principal); M47.814 Spondylosis without myelopathy or radiculopathy, thoracic region
CPT/HCPCS: 99214

== ENCOUNTER → 2023-07-24 11:33 | Outpatient (BNVA) | payer MEDICARE, SELFPAY | PROVIDERS: PCP Physician Assistant; Visit Provider Internal Medicine | DX: G58.8 Other specified mononeuropathies (principal); M47.814 Spondylosis without myelopathy or radiculopathy, thoracic region | CPT/HCPCS: 99212 ==

== ENCOUNTER 2023-08-07 11:23 | Outpatient (AMB) | payer MEDICARE, SELFPAY ==
--- NOTE | 2023-08-07 11:38 | A.OFFVIS_ITS ---
Vital Signs 08/07/23 11:39 Height 5 ft 1 in Weight 171 lb BMI 32.3 BP 132/61 Blood Pressure Location Lt brachial Position Sitting Respiration 14 Pulse 73 Pulse Source Pulse Oximeter Pulse Oximetry (%) 97 Oxygen Delivery Method Room Air Intake Visit Reasons: UPPER BACK INJECTIONS UNDER ULTRASOUND Allergies tramadol Allergy (Mild, Verified 08/07/23 11:40) Unknown fentanyl [From DURAGESIC] Adverse Reaction (Intermediate, Verified 08/07/23 11:40) NAUSEA & VOMITING tizanidine Adverse Reaction (Intermediate, Verified 08/07/23 11:40) fatigue states multiple meds does not Allergy (Unknown, Uncoded 08/07/23 11:40) Unknown Medication List - Last Reconciled 08/07/23 by Chelsi Easley LPN blood sugar diagnostic ([employer] Verio test strips) USE ONE STRIP THREE TIMES A DAY hydrochlorothiazide 25 mg PO QAM ibuprofen 800 mg PO .HS insulin glargine (Basaglar KwikPen U-100 Insulin) 25 units (0.25 mL) subcut BEDTIME 30 days insulin regular human (Novolin R FlexPen) 1 sliding scale dose subcut USEASDIRECTD lancets (OneTouch Delica Lancets) 1 gauge topical TID 30 days lancets (OneTouch Delica Plus Lancet) Testing 3 times a day lidocaine 5% 1 patch topical DAILY lisinopril 10 mg PO DAILY lorazepam 0.5 mg PO BID meclizine 12.5 mg PO TID PRN 5 days metformin 500 mg PO TID 3 months omeprazole 20 mg PO DAILY pen needle, diabetic (BD Marilyn 2nd Gen Pen Needle) USE TWICE DAILY pen needle, diabetic (BD Marilyn 2nd Gen Pen Needle) 1 ea miscellaneous BID simvastatin 10 mg PO DAILY HPI HPI UPPER BACK INJECTIONS UNDER ULTRASOUND: Details: 67-year-old female who presents today to the office for follow-up. She was originally scheduled for an upper back injection but her most painful complaint at this time is right shoulder pain. She is interested in discussing potential treatment options for this pain. She has previously had excellent response to right AC joint and subacromial bursa injections with prolonged relief. She would like to repeat that treatment today. Past procedures 06/25/23: Interlaminar epidural steroid injection, C7/T1, right parasaggital: 60% relief. 04/23/23: Peripheral Nerve Stimulation Temporary Lead Placement, Ultrasound- Guided, Axillary Nerve, Right: No significant relief 02/23/23: Right subacromial bursa injection, ultrasound guided: No significant relief 12/24/22: Peripheral Nerve Stimulation Temporary Lead Placement, Ultrasound and Fluoroscopy-Guided, 4th Intercostal Nerve, Right: Resolution of upper back radiating pain 11/10/22: Right AC joint injection and subacromial bursa injection under US guidance: 50% relief for 2 months 11/03/22: Right diagnostic suprascapular nerve block, US guided: 100% numbness for 24 hours, but it did not affect her upper lateral thoracic/axilla pain. 10/20/22: Right 4th/5th intercostal nerve block, ultrasound-guided: >80% relief for a day for chest wall pain. 10/01/22: Intercostal nerve block, right, 8th and 9th, ultrasound-guided: inadequate mapping. 08/20/2022: Thoracic Medial Branch Block, Right, T8, T9, T10 medial branches: 50% relief for 2 hours. 07/02/2022: Interlaminar epidural steroid injection, C7/T1, Right parasaggital: 40% relief. [facility] Medical History BPPV (benign paroxysmal positional vertigo) Fibromyalgia History of smoking Osteoarthritis, shoulder Surgical History History of appendectomy History of removal of ovarian cyst History of wisdom tooth extraction Family History Father Medical history unknown Mother CVD (cardiovascular disease) Family/Other FH: mental illness Social History Housing: Apartment Alcohol intake: never Patient Tobacco Use Status: Former Tobacco user e-Cigarette/Vaping Use: Never Used Second Hand Smoke Exposure: No Current occupational status: retired and disabled Cognitive needs: No Hearing needs: No Vision needs: Yes (wear glasses) Review of Systems Const All systems reviewed & are unremarkable except as noted in HPI and below Physical Exam Vital Signs: Last Vital Signs Pulse 73 08/07/23 11:39 Resp 14 05/10/24 11:39 BP 132/61 08/07/23 11:39 Pulse Ox 97 08/07/23 11:39 Oxygen Delivery Method Room Air 08/07/23 11:39 BMI result Body Mass Index 32.3 General: Appears afebrile. Alert and oriented. Mood and affect appropriate. Follows and participates in conversation appropriately. Respiratory effort is unlabored. Able to transition from sit to stand unassisted. Ambulates with bilaterally normal heel strike and toe off. Office Procedures Joint Injection/Drain Joint Injection/Drain Details: Right diagnostic AC joint injection, US guided Primary Site: right shoulder Prep: site was prepped using sterile technique Injected: 20 mg of, Kenalog (with 2 mL 0.5% ropivacaine ) and in the joint Approach Used: anterior Procedure: The patient tolerated the procedure well Coding Details: An ultrasound image of the injection was taken and stored in the permanent record. - Acromioclavicular with ultrasound guidance (Right side) Procedure code (CPT) selection complete Joint Injection/Drain Joint Injection/Drain Details: Right subacromial bursa injection, US guided Primary Site: right shoulder Prep: site was prepped using sterile technique Injected: 20 mg of, Kenalog (with 2 mL of 0.5% ropivacaine ) and in the subcromial space (right ) Approach Used: posterolateral Procedure: The patient tolerated the procedure well Coding Details: An ultrasound image of the injection was taken and stored in the permanent record. - Acromioclavicular with ultrasound guidance (right side US guided) Procedure code (CPT) selection complete Results Reviewed Results Reviewed: No imaging is available for review. Assessment & Plan Assessment & Plan (1) Adhesive capsulitis of right shoulder: Code(s): M75.01 - Adhesive capsulitis of right shoulder Category: Medical (2) Acromioclavicular joint arthritis: Code(s): M19.019 - Primary osteoarthritis, unspecified shoulder Category: Medical Plan Patient is status post right diagnostic AC joint injection, US guided and right subacromial bursa injection, US guided. Patient tolerated procedure well and was discharged home in stable condition with discharge instructions. All questions were answered. We will follow-up in two weeks via telephone or in clinic to assess response to therapy. A follow-up appointment was made during today's visit. Scribed for Dr. Varner by Pedrito Tran certified medical aide, on 08/07/2023. I, Dr. Varner, have personally reviewed and agree with the information entered by the scribe. Coding Level of Care Code Est Pt Level 3 (01659) Diagnoses Adhesive capsulitis of right shoulder M75.01 Acromioclavicular joint arthritis M19.019 CPT Codes Coding - Joint 6: 04587 - Acromioclavicular with ultrasound guidance ([id number]) Coding - Joint 6: 12443 - Acromioclavicular with ultrasound guidance ([id number])
[2023-08-07 11:39] VITALS: BP 132/61; PULSE 73; RESP 14; O2SAT 97; BMI 32.3
== END 2023-08-07 12:15 | disposition home or self-care (01) ==
PROVIDERS: PCP Physician Assistant; Visit Provider Internal Medicine
DX: M75.01 Adhesive capsulitis of right shoulder (principal); M19.019 Primary osteoarthritis, unspecified shoulder
CPT/HCPCS: 20606; 20611; 99213

== ENCOUNTER → 2023-08-07 11:23 | Outpatient (BNVA) | payer MEDICARE, SELFPAY | PROVIDERS: PCP Physician Assistant; Visit Provider Internal Medicine | DX: M75.01 Adhesive capsulitis of right shoulder (principal); M19.011 Primary osteoarthritis, right shoulder | CPT/HCPCS: 20606; 20611; 99212; J2795; J3301 ==

== ENCOUNTER 2023-08-21 10:40 | Outpatient (AMB) | payer MEDICARE, SELFPAY ==
[2023-08-21 10:45] VITALS: BP 117/64; PULSE 73; RESP 14; O2SAT 97; BMI 31.9
--- NOTE | 2023-08-21 10:45 | A.OFFVIS_ITS ---
Vital Signs 08/21/23 10:45 Height 5 ft 1 in Weight 169 lb BMI 31.9 BP 117/64 Blood Pressure Location Lt brachial Position Sitting Respiration 14 Pulse 73 Pulse Source Pulse Oximeter Pulse Oximetry (%) 97 Oxygen Delivery Method Room Air Intake Visit Reasons: INTERCOSTAL NB Allergies tramadol Allergy (Mild, Verified 08/21/23 10:47) Unknown fentanyl [From DURAGESIC] Adverse Reaction (Intermediate, Verified 08/21/23 10:47) NAUSEA & VOMITING tizanidine Adverse Reaction (Intermediate, Verified 08/21/23 10:47) fatigue states multiple meds does not Allergy (Unknown, Uncoded 08/21/23 10:47) Unknown Medication List - Last Reconciled 08/21/23 by Chelsi Easley LPN blood sugar diagnostic (Restorandouch Verio test strips) USE ONE STRIP THREE TIMES A DAY hydrochlorothiazide 25 mg PO QAM ibuprofen 800 mg PO .HS insulin glargine (Basaglar KwikPen U-100 Insulin) 25 units (0.25 mL) subcut BEDTIME 30 days insulin regular human (Novolin R FlexPen) 1 sliding scale dose subcut USEASDIRECTD lancets (Total ImmersionTouch Delica Lancets) 1 gauge topical TID 30 days lancets (Restorandouch Delica Plus Lancet) Testing 3 times a day lidocaine 5% 1 patch topical DAILY lisinopril 10 mg PO DAILY lorazepam 0.5 mg PO BID meclizine 12.5 mg PO TID PRN 5 days metformin 500 mg PO TID 3 months omeprazole 20 mg PO DAILY pen needle, diabetic (BD Marilyn 2nd Gen Pen Needle) USE TWICE DAILY pen needle, diabetic (BD Marilyn 2nd Gen Pen Needle) 1 ea miscellaneous BID simvastatin 10 mg PO DAILY HPI HPI INTERCOSTAL NB: Details: 67-year-old female who presents today to the office for an intercostal nerve block The patient reports 90% relief following the procedure. Denies any recent cough, cold, infection, fever or other significant changes in medical history since last office visit.? Past procedures 08/07/23: Right subacromial bursa injection, US [id number]/24: Right diagnostic AC joint injection, US guided: 90% relief. 06/25/23: Interlaminar epidural steroid injection, C7/T1, right parasaggital: 60% relief. 04/23/23: Peripheral Nerve Stimulation Temporary Lead Placement, Ultrasound- Guided, Axillary Nerve, Right: No significant relief 02/23/23: Right subacromial bursa injection, ultrasound guided: No significant relief 12/24/22: Peripheral Nerve Stimulation Temporary Lead Placement, Ultrasound and Fluoroscopy-Guided, 4th Intercostal Nerve, Right: Resolution of upper back radiating pain 11/10/22: Right AC joint injection and subacromial bursa injection under US guidance: 50% relief for 2 months 11/03/22: Right diagnostic suprascapular nerve block, US guided: 100% numbness for 24 hours, but it did not affect her upper lateral thoracic/axilla pain. 10/20/22: Right 4th/5th intercostal nerve block, ultrasound-guided: >80% relief for a day for chest wall pain. 10/01/22: Intercostal nerve block, right, 8th and 9th, ultrasound-guided: inadequate mapping. 08/20/2022: Thoracic Medial Branch Block, Right, T8, T9, T10 medial branches: 50% relief for 2 hours. 07/02/2022: Interlaminar epidural steroid injection, C7/T1, Right parasaggital: 40% relief. [facility]LY [facility] Medical History BPPV (benign paroxysmal positional vertigo) Fibromyalgia History of smoking Osteoarthritis, shoulder Surgical History History of appendectomy History of removal of ovarian cyst History of wisdom tooth extraction Family History Father Medical history unknown Mother CVD (cardiovascular disease) Family/Other FH: mental illness Social History Housing: Apartment Alcohol intake: never Patient Tobacco Use Status: Former Tobacco user e-Cigarette/Vaping Use: Never Used Second Hand Smoke Exposure: No Current occupational status: retired and disabled Cognitive needs: No Hearing needs: No Vision needs: Yes (wear glasses) Review of Systems Const All systems reviewed & are unremarkable except as noted in HPI and below Physical Exam Vital Signs: Last Vital Signs Pulse 73 08/21/23 10:45 Resp 14 08/21/23 10:45 BP 117/64 08/21/23 10:45 Pulse Ox 97 08/21/23 10:45 Oxygen Delivery Method Room Air 08/21/23 10:45 BMI result Body Mass Index 31.9 General: Appears afebrile. Alert and oriented. Mood and affect appropriate. Follows and participates in conversation appropriately. Respiratory effort is unlabored. Able to transition from sit to stand unassisted. Ambulates with bilaterally normal heel strike and toe off. Office Procedures Nerve Block Details: Intercostal nerve block, RIGHT, T3 & T4, ultrasound-guided After obtaining written consent, pre-procedure blood pressure and heart rate were stable and recorded in the nursing record. The patient was placed prone on the table. The relevant levels of the intercostal nerves were physically palpated corresponding to the patient's pain and marked. Using ultrasound, the appropriate landmarks including the rib, intercostal muscles and pleura were identified. A 21 gauge 80 mm echostim needle was advanced under sonographic guidance in proximity to the intercostal nerve. Aspiration was negative for heme and air. 5 cc of ropivacaine 0.5% was injected around each of the targeted nerves. The needle was removed, skin cleansed and a sterile bandage was applied. The patient tolerated the procedure well and no complications were encountered. Following the procedure the patient's vital signs and respiration were stable. The patient was discharged home in good condition with post-procedural instructions. Time Out: Immediately prior to the procedure, the following was verbally confirmed that there is a signed consent form and that the correct patient, planned procedure, site and side are consistent with documentation and that necessary equipment and/or blood products are available prior to the start of the case. Complications: none EBL: <1 cc An ultrasound image of the injection was taken and stored in the permanent record. Procedure code (CPT) selection complete Results Reviewed Results Reviewed: No imaging is available for review. 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 Patient tolerated procedure well and was discharged home in stable condition with discharge instructions. All questions were answered. We will follow-up as needed. Scribed for Dr. Varner by Pedrito Tran mobile paramedical examiner, on 08/21/2023. I, Dr. Varner, have personally reviewed and agree with the information entered by the scribe. Coding Level of Care Code Procedure Only Diagnoses Intercostal neuralgia G58.8
== END 2023-08-21 11:05 | disposition home or self-care (01) ==
PROVIDERS: PCP Physician Assistant; Visit Provider Internal Medicine
DX: G58.8 Other specified mononeuropathies (principal)
CPT/HCPCS: 64420; 64421; 76942

== ENCOUNTER → 2023-08-21 10:40 | Outpatient (BNVA) | payer MEDICARE, SELFPAY | PROVIDERS: PCP Physician Assistant; Visit Provider Internal Medicine | DX: G58.8 Other specified mononeuropathies (principal) | CPT/HCPCS: 64420; J2795 ==

== ENCOUNTER 2023-09-23 11:27 | Outpatient (AMB) | payer MEDICARE, SELFPAY ==
[2023-09-23 11:42] VITALS: BP 106/68; PULSE 78; O2SAT 97; BMI 32.6
--- NOTE | 2023-09-23 11:42 | MHC.PC.OV ---
Vital Signs 09/23/23 11:42 Height 5 ft 1 in Weight 172 lb 8 oz BMI 32.6 BP 106/68 Blood Pressure Location Lt brachial Position Sitting Pulse 78 Pulse Source Pulse Oximeter Pulse Oximetry (%) 97 Intake Visit Reasons: f/u DMII Monologist Required: No Director Of Graduate Admissions: Not Required per policy Accompanied by: Self / Same As Patient Allergies tramadol Allergy (Mild, Verified 09/23/23 11:52) Unknown fentanyl [From DURAGESIC] Adverse Reaction (Intermediate, Verified 09/23/23 11:52) NAUSEA & VOMITING tizanidine Adverse Reaction (Intermediate, Verified 09/23/23 11:52) fatigue states multiple meds does not Allergy (Unknown, Uncoded 09/23/23 11:52) Unknown Medication List - Last Reconciled 09/23/23 by Tye Butler PA-C blood sugar diagnostic (KaptureTouch Verio test strips) USE ONE STRIP THREE TIMES A DAY hydrochlorothiazide 25 mg PO QAM ibuprofen 800 mg PO .HS insulin glargine (Basaglar KwikPen U-100 Insulin) 25 units (0.25 mL) subcut BEDTIME 30 days insulin regular human (Novolin R FlexPen) 1 sliding scale dose subcut USEASDIRECTD lancets (OneTouch Delica Lancets) 1 gauge topical TID 30 days lancets (OneTouch Delica Plus Lancet) Testing 3 times a day lidocaine 5% 1 patch topical DAILY lisinopril 10 mg PO DAILY lorazepam 0.5 mg PO BID meclizine 12.5 mg PO TID PRN 5 days metformin 500 mg PO TID 3 months omeprazole 20 mg PO DAILY pen needle, diabetic (BD Marilyn 2nd Gen Pen Needle) USE TWICE DAILY pen needle, diabetic (BD Marilyn 2nd Gen Pen Needle) 1 ea miscellaneous BID simvastatin 10 mg PO DAILY Tobacco use date assessed: 09/23/23 Fall risk assessment: No Falls in past year Last assessed Fall Risk: 09/23/23 Dental Screening Dental Screen Date: 09/23/23 Did you have a dental visit in the last 12 months?: No Did you have a dental problem in the last 6 months where you did not have access to dental care?: No Was dental information given to patient?: No HPI f/u DMII HPI Details Patient is a 67year female here today for a follow-up on chronic conditions. ? Patient has a past history significant for cervical spine pain, obesity, hypertension, type 2 diabetes. Diabetes:? Has been well controlled with current dose of Lantus.? Today's A1c is 6.7. She does report having hypoglycemic episode and sugars have been running a bit lower. She has reduced her Basaglar dose to 18 units. PLAN: Will reduce her metformin to b.i.d. dosing .. Hypertension: Blood pressure acceptable today in office. Will continue with her current antihypertensive medication .. Hyperlipidemia: Most recent fasting lipid panel showing good control over total cholesterol and LDL. Will continue low-dose statin .. Thoracic radiculopathy:? Continues to have intermittent sharp right flank pain radiating into the anterior aspect of her chest. ? Patient recently had MRI of thoracic spine showing a T 9-10 moderate disc herniation compression.? She has been using Tylenol and NSAIDs without much relief.? Has use muscle relaxers in the past though had side effects. ? She has not been followed by [place] [facility] management [facility], [facility] Medical History BPPV (benign paroxysmal positional vertigo) Fibromyalgia History of smoking Osteoarthritis, shoulder Surgical History History of appendectomy History of removal of ovarian cyst History of wisdom tooth extraction Family History Father Medical history unknown Mother CVD (cardiovascular disease) Family/Other FH: mental illness Social History Housing: Apartment Alcohol intake: never Patient Tobacco Use Status: Former Tobacco user e-Cigarette/Vaping Use: Never Used Second Hand Smoke Exposure: No service: No Current occupational status: retired and disabled Cognitive needs: No Hearing needs: No Vision needs: Yes (wear glasses) Questionnaire PHQ-9 Over the last 2 weeks, how often have you been bothered by any of the following problems? 1. Little interest or pleasure in doing things: not at all 2. Feeling down, depressed, or hopeless: not at all 3. Trouble falling or staying asleep, or sleeping too much: not at all 4. Feeling tired or having little energy: not at all 5. Poor appetite or overeating: not at all 6. Feeling bad about yourself - or that you are a failure or have let yourself or your family down: not at all 7. Trouble concentrating on things, such as reading the newspaper or watching television: not at all 8. Moving or speaking so slowly that other people could have noticed. Or the opposite - being so fidgety or restless that you have been moving around a lot more than usual: not at all 9. Thoughts that you would be better off or of hurting yourself in some way: not at all Total score: 0 Depression Screening Interpretation: Negative Depression Screening Done: Yes [id number] - PHQ-9 Billing: Yes Source: Developed by Drs. Trevon Capps, Cici Macias, Lb Marks and colleagues, with an educational shantell from [employer]. Thrive Questionnaire Date Thrive assessed: 09/23/23 I am a: Patient What is your living situation today?: I have a steady place to live Within the past 12 months, did the food you bought not last and you didn't have the money to get more?: Never true Within the past 12 months, did you worry whether your food would run out before you got money to buy more?: Never true Do you have trouble paying for medicines?: No Do you have trouble getting transportation to medical appointments?: No Do you have trouble paying your heating and electricity bill?: No Do you have trouble taking care of your child, family member or friend?: No Do you have trouble with day-to-day activities such as bathing, preparing meals, shopping, managing finances, etc.?: No Are you currently unemployed and looking for a job?: No Are you interested in more education?: No Please select the resources that you would like help with: Education and None Currently or been in a relationship where the following occur: no concerns reported THRIVE Score: 0 AUDIT C Alcohol Use Questionnaire (AUDIT-C) 1. How often do you have a drink containing alcohol?: Never 3. How often do you have six or more drinks on one occasion?: Never Total Score: 0 CAROLE-7 AMB Questionnaire CAROLE-7 Date CAROLE - 7 assessed: 09/23/23 Feeling nervous, anxious, or on edge: 0 = Not at all Not being able to stop or control worryin = Not at all Worrying too much about different things: 0 = Not at all Trouble relaxin = Not at all Being so restless that it is hard to sit still: 0 = Not at all Becoming easily annoyed or irritable: 0 = Not at all Feeling afraid as if something awful might happen: 0 = Not at all Total CAROLE-7 score (0-4 normal; 5-9 mild; 10-14 moderate; 15-21 severe): 0 Source: Developed by Drs. Trevon Capps, Cici Macias, Lb Marks and colleagues, with an educational shantell from [employer]. CAROLE-7 Assessment Billing CAROLE-7 Assessment Tool: CAROLE-7 Assessment 50903 Review of Systems Const Denies headache(s) Eyes Denies loss of vision ENT Denies vertigo, Denies dizziness, Denies headache(s) and Denies sore throat Card Denies chest pain, Denies leg edema and Denies lightheadedness Resp Denies cough, Denies hemoptysis and Denies wheezing GI Denies abdominal pain, Denies melena, Denies constipation, Denies diarrhea and Denies vomiting Denies urinary frequency, Denies dysuria and Denies urinary urgency Musc Denies arthralgias, Denies joint swelling, Denies numbness and Denies tingling Neuro Denies Abnormal speech present, Denies behavioral changes, Denies vertigo, Denies dizziness, Denies headache(s), Denies loss of vision, Denies memory loss, Denies numbness and Denies tingling Psych Denies anxiety, Denies behavioral changes, Denies depression, Denies memory loss and Denies panic attacks Chano/Lymph Denies easy bleeding and Denies easy bruising Aller/Immun Denies wheezing Physical exam (Primary Care) Vital Signs: Last Vital Signs Pulse 78 09/23/23 11:42 BP 106/68 09/23/23 11:42 Pulse Ox 97 09/23/23 11:42 BMI result Body Mass Index 32.6 Tobacco/Smoking Status: Tobacco use Status Tobacco use date assessed 09/23/23 09/23/23 11:48 Patient Tobacco Use Status Former Tobacco user 09/23/23 11:46 e-Cigarette/Vaping Use Never Used 09/23/23 11:46 PHQ-9: PHQ-9 Score PHQ-9: Total score 0 09/23/23 11:48 Depression Screening Interpretation: Negative Thrive Assessment: Date of Thrive Assessment Date Thrive assessed 09/23/23 09/23/23 11:48 Currently or been in a relationship where the following occur: no concerns reported Const General: healthy appearing, no acute distress, alert and awake Nutritional Appearance: well nourished Orientation/consciousness: oriented to person, oriented to place and oriented to time HENMT Ears: TM's normal bilaterally General nose exam: Normal nasal mucous membranes and turbinates present Eyes Conjunctivae: conjunctivae normal Sclerae: sclerae normal Pupils: Equal, round and reactive pupils present Neck Neck: Yes no lymphadenopathy and Yes no JVD Thyroid: Thyroid normal Carotids: no bruits Resp Effort & Inspection: normal respiratory effort and not tachypneic Auscultation: no crackles, no rales, no rhonchi and no wheezes Cardio Rate: regular rate Rhythm: regular rhythm Heart sounds: no murmurs and normal S1 and S2 GI Palpation (GI): Soft to palpation, nontender, no hepatomegaly and no splenomegaly Auscultation: normal bowel sounds Skin General skin exam: no rashes or lesions noted and dry skin Neuro General: oriented to person, oriented to place and oriented to time Cranial nerves: Yes Equal, round and reactive pupils present Speech: No Abnormal speech present Gait exam (Neuro): Normal gait present Motor exam (neuro): no tremor noted Extrem Right upper extremity: full ROM Left upper extremity: full ROM Right lower extremity: full ROM; no edema Left lower extremity: full ROM; no edema Psych Mental Status: mental status grossly normal Speech and movement: Normal speech and movement present Affect: normal affect Attitude: cooperative Thought process: Normal thought process present Results AMB Hemoglobin A1c AMB Hemoglobin A1c 6.7 % Last Edit by CANDICE Marshall on 09/23/23 11:54 Assessment and Plan Assessment & Plan (1) HTN (hypertension): Code(s): I10 - Essential (primary) hypertension Qualifiers: Hypertension type: essential hypertension Qualified Code(s): I10 - Essential (primary) hypertension Plan: Patient's blood pressure acceptable today in office. Continue her current dose of lisinopril with goal blood pressure to be below 140/90 (2) Type 2 diabetes mellitus: Code(s): E11.9 - Type 2 diabetes mellitus without complications Qualifiers: Diabetes mellitus penitentiary insulin use: without penitentiary use Diabetes mellitus complication status: without complication Qualified Code(s): E11.9 - Type 2 diabetes mellitus without complications Plan: Patient's type 2 diabetes well controlled with current dose of Basaglar and metformin. A1c is 6.7 DOes report having an episode of hypoglycemia. She has been reducing her Basaglar dose down to 18 units. Will decrease her metformin to 500 mg b.i.d.. Goal A1c to remain below 7.0 (3) HLD (hyperlipidemia): Code(s): E78.5 - Hyperlipidemia, unspecified Qualifiers: Hyperlipidemia type: mixed hyperlipidemia Qualified Code(s): E78.2 - Mixed hyperlipidemia Plan: Patient continues On low-dose simvastatin with goal LDL to be below 100 (4) Intercostal neuralgia: Code(s): G58.8 - Other specified mononeuropathies Plan: Followed by [place] pain management and is due for procedure to help reduce her intercostal pain. She is considering nerve stimulator. Orders: Orders Microalbumin, Random (w Creat) Today E11.9 - Type 2 diabetes mellitus without complications Complete Blood Count no Diff Today I10 - Essential (primary) hypertension AMB Hemoglobin A1c Today E11.9 - Type 2 diabetes mellitus without complications Lipid Panel Today E78.2 - Mixed hyperlipidemia Comprehensive [place]. Panel Fast Today E11.9 - Type 2 diabetes mellitus without complications Referrals Ophthalmology Referral E11.9 - Type 2 diabetes mellitus without complications Patient Instructions: Goal: Blood pressure remain below 140/90, A1c to be below 7.0 Barriers: Adherence to physical activity and healthy eating habits Coding Level of Care Code Est Pt Level 4 (03242) Complex EM visit Add On G2211 Diagnoses Essential hypertension I10 Hypertension type: essential hypertension Type 2 diabetes mellitus without complication, without long-term current use of insulin E11.9 Diabetes mellitus extermination inspector insulin use: without penitentiary use Diabetes mellitus complication status: without complication Mixed hyperlipidemia E78.2 Hyperlipidemia type: mixed hyperlipidemia Intercostal neuralgia G58.8 Additional Codes CAROLE-7 Assessment Billing - CAROLE-7 Assessment Tool: CAROLE-7 Assessment [id number] ([id number])
== END 2023-09-23 12:06 | disposition home or self-care (01) ==
PROVIDERS: PCP Physician Assistant; Visit Provider Physician Assistant
DX: E11.9 Type 2 diabetes mellitus without complications (principal); I10 Essential (primary) hypertension; E78.2 Mixed hyperlipidemia; G58.8 Other specified mononeuropathies
CPT/HCPCS: 83036; 99214; G2211

== ENCOUNTER 2023-11-06 10:36 | Outpatient (AMB) | payer MEDICARE, SELFPAY ==
--- NOTE | 2023-11-06 10:42 | A.OFFVIS_ITS ---
Vital Signs 11/06/23 10:43 Height 5 ft 1 in BP 123/60 Blood Pressure Location Lt brachial Position Sitting Respiration 14 Pulse 83 Pulse Source Pulse Oximeter Pulse Oximetry (%) 97 Oxygen Delivery Method Room Air Intake Visit Reasons: RIGHT SHOULDER INJECTION Allergies tramadol Allergy (Mild, Verified 11/06/23 10:44) Unknown fentanyl [From DURAGESIC] Adverse Reaction (Intermediate, Verified 11/06/23 10:44) NAUSEA & VOMITING tizanidine Adverse Reaction (Intermediate, Verified 11/06/23 10:44) fatigue states multiple meds does not Allergy (Unknown, Uncoded 11/06/23 10:44) Unknown Medication List - Last Reconciled 11/06/23 by Chelsi Easley LPN blood sugar diagnostic (Motor2Touch Verio test strips) USE ONE STRIP THREE TIMES A DAY hydrochlorothiazide 25 mg PO QAM ibuprofen 800 mg PO .HS insulin glargine (Basaglar KwikPen U-100 Insulin) 25 units (0.25 mL) subcut BEDTIME 30 days insulin regular human (Novolin R FlexPen) 1 sliding scale dose subcut USEASDIRECTD lancets (OneTouch Delica Lancets) 1 gauge topical TID 30 days lancets (OneTouch Delica Plus Lancet) Testing 3 times a day lidocaine 5% 1 patch topical DAILY lisinopril 10 mg PO DAILY lorazepam 0.5 mg PO BID meclizine 12.5 mg PO TID PRN 5 days metformin 500 mg PO TID 3 months omeprazole 20 mg PO DAILY pen needle, diabetic (BD Marilyn 2nd Gen Pen Needle) USE TWICE DAILY pen needle, diabetic (BD Marilyn 2nd Gen Pen Needle) 1 ea miscellaneous BID simvastatin 10 mg PO DAILY HPI HPI RIGHT SHOULDER INJECTION: Details: 68-year-old female who presented today for a right shoulder injection. However she reports that her right shoulder has been feeling fine since our last injection back in July and it has not been particularly bothersome. However the right upper back pain seems to have returned after the last round of intercostal nerve blocks also done in July. She is interested in repeating the intercostal nerve blocks for her right upper back pain and deferring the shoulder injection to a later time. Denies any recent cough, cold, infection, fever or other significant changes in medical history since last office visit.? Past procedures 08/21/23: Intercostal nerve block, RIGHT, T3 & T4, ultrasound-guided: >75% relief for 4 months. 08/07/23: Right subacromial bursa injection, US [id number]/24: Right diagnostic AC joint injection, US guided: 90% relief. 06/25/23: Interlaminar epidural steroid injection, C7/T1, right parasaggital: 60% relief. 04/23/23: Peripheral Nerve Stimulation Temporary Lead Placement, Ultrasound- Guided, Axillary Nerve, Right: No significant relief 02/23/23: Right subacromial bursa injection, ultrasound guided: No significant relief 12/24/22: Peripheral Nerve Stimulation Temporary Lead Placement, Ultrasound and Fluoroscopy-Guided, 4th Intercostal nerve, Right: Resolution of upper back radiating pain 11/10/22: Right AC joint injection and subacromial bursa injection under US guidance: 50% relief for 2 months 11/03/22: Right diagnostic suprascapular nerve block, US guided: 100% numbness for 24 hours, but it did not affect her upper lateral thoracic/axilla pain. 10/20/22: Right 4th/5th intercostal nerve block, ultrasound-guided: >80% relief for a day for chest wall pain. 10/01/22: Intercostal nerve block, right, 8th and 9th, ultrasound-guided: inadequate mapping. 08/20/2022: Thoracic Medial Branch Block, Right, T8, T9, T10 medial branches: 50% relief for 2 hours. 07/02/2022: Interlaminar epidural steroid injection, C7/T1, Right parasaggital: 40% relief. PFSH Medical History BPPV (benign paroxysmal positional vertigo) Fibromyalgia History of smoking Osteoarthritis, shoulder Surgical History History of appendectomy History of removal of ovarian cyst History of wisdom tooth extraction Family History Father Medical history unknown Mother CVD (cardiovascular disease) Family/Other FH: mental illness Social History Housing: Apartment Alcohol intake: never Patient Tobacco Use Status: Former Tobacco user e-Cigarette/Vaping Use: Never Used Second Hand Smoke Exposure: No service: No Current occupational status: retired and disabled Cognitive needs: No Hearing needs: No Vision needs: Yes (wear glasses) Review of Systems Const All systems reviewed & are unremarkable except as noted in HPI and below Physical Exam Vital Signs: Last Vital Signs Pulse 83 11/06/23 10:43 Resp 14 11/06/23 10:43 BP 123/60 11/06/23 10:43 Pulse Ox 97 11/06/23 10:43 Oxygen Delivery Method Room Air 11/06/23 10:43 General: Appears afebrile. Alert and oriented. Mood and affect appropriate. Follows and participates in conversation appropriately. Respiratory effort is unlabored. Able to transition from sit to stand unassisted. Ambulates with bilaterally normal heel strike and toe off. Office Procedures Nerve Block Details: Intercostal nerve block, RIGHT, T3 & T4, ultrasound-guided After obtaining written consent, pre-procedure blood pressure and heart rate were stable and recorded in the nursing record. The patient was placed prone on the table. The relevant levels of the intercostal nerves were physically palpated corresponding to the patient's pain and marked. Using ultrasound, the appropriate landmarks including the rib, intercostal muscles and pleura were identified. A 21-gauge 80 mm echo stim needle was advanced under sonographic guidance in proximity to the intercostal nerve. Aspiration was negative for heme and air. 20 ml of Kenalog was injected around each of the targeted nerves. The needle was removed, skin cleansed and a sterile bandage was applied. The patient tolerated the procedure well and no complications were encountered. Following the procedure the patient's vital signs and respiration were stable. The patient was discharged home in good condition with post-procedural instructions. Time Out: Immediately prior to the procedure, the following was verbally confirmed that there is a signed consent form and that the correct patient, planned procedure, site and side are consistent with documentation and that necessary equipment and/or blood products are available prior to the start of the case. Complications: none EBL: <1 cc An ultrasound image of the injection was taken and stored in the permanent record. Procedure code (CPT) selection complete Results Reviewed Results Reviewed: No imaging is available for review. Assessment & Plan Assessment & Plan (1) Acromioclavicular joint arthritis: Code(s): M19.019 - Primary osteoarthritis, unspecified shoulder Category: Medical (2) Cervical radiculopathy: Code(s): M54.12 - Radiculopathy, cervical region Category: Medical (3) Intercostal neuralgia: Code(s): G58.8 - Other specified mononeuropathies Category: Medical (4) Thoracic spondylosis: Code(s): M47.814 - Spondylosis without myelopathy or radiculopathy, thoracic region Category: Medical Plan Patient is status post intercostal nerve block, right, T3 & T4, ultrasound-guid ed. Patient tolerated procedure well and was discharged home in stable condition with discharge instructions. All questions were answered. We will follow-up as needed. Scribed for Dr. Varner by Pedrito Tran, medical insurance claims specialist, on 11/06/2023. I, Dr. Varner, have personally reviewed and agree with the information entered by the scribe. Coding Level of Care Code Est Pt Level 3 (87085) Diagnoses Acromioclavicular joint arthritis M19.019 Cervical radiculopathy M54.12 Intercostal neuralgia G58.8 Thoracic spondylosis M47.814
[2023-11-06 10:43] VITALS: BP 123/60; PULSE 83; RESP 14; O2SAT 97
== END 2023-11-06 11:06 | disposition home or self-care (01) ==
PROVIDERS: PCP Physician Assistant; Referring Provider Physician Assistant; Visit Provider Internal Medicine
DX: M19.011 Primary osteoarthritis, right shoulder (principal); G58.8 Other specified mononeuropathies; M47.814 Spondylosis without myelopathy or radiculopathy, thoracic region
CPT/HCPCS: 64420; 76942; 99213

== ENCOUNTER → 2023-11-06 10:36 | Outpatient (BNVA) | payer MEDICARE, SELFPAY | PROVIDERS: PCP Physician Assistant; Visit Provider Internal Medicine | DX: M54.12 Radiculopathy, cervical region (principal); G58.8 Other specified mononeuropathies; M47.814 Spondylosis without myelopathy or radiculopathy, thoracic region; M19.019 Primary osteoarthritis, unspecified shoulder | CPT/HCPCS: 64420; 99212; J2795; J3301 ==

== ENCOUNTER 2023-12-18 10:46 | Outpatient (AMB) | payer MEDICARE, SELFPAY ==
--- NOTE | 2023-12-18 10:47 | MHC.OFFVIS ---
Vital Signs 12/18/23 10:48 Height 5 ft 1 in Weight 174 lb BMI 32.9 BP 134/62 Blood Pressure Location Lt brachial Position Sitting Respiration 15 Pulse 62 Pulse Source Pulse Oximeter Pulse Oximetry (%) 987 H Oxygen Delivery Method Room Air Intake Visit Reasons: Shoulder Inj Allergies tramadol Allergy (Mild, Verified 01/08/24 11:15) Unknown fentanyl [From DURAGESIC] Adverse Reaction (Intermediate, Verified 01/08/24 11:15) NAUSEA & VOMITING tizanidine Adverse Reaction (Intermediate, Verified 01/08/24 11:15) fatigue states multiple meds does not Allergy (Unknown, Uncoded 01/08/24 11:15) Unknown Medication List - Last Reconciled 12/18/23 by Chelsi Easley LPN blood sugar diagnostic (Endorseuch Verio test strips) USE ONE STRIP THREE TIMES A DAY hydrochlorothiazide 25 mg PO QAM ibuprofen 800 mg PO .HS insulin glargine (Basaglar KwikPen U-100 Insulin) 25 units (0.25 mL) subcut BEDTIME 30 days insulin regular human (Novolin R FlexPen) 1 sliding scale dose subcut USEASDIRECTD lancets (Endorseuch Delica Lancets) 1 gauge topical TID 30 days lancets (End[employer]uch Delica Plus Lancet) Testing 3 times a day lidocaine 5% 1 patch topical DAILY lisinopril 10 mg PO DAILY lorazepam 0.5 mg PO BID meclizine 12.5 mg PO TID PRN 5 days metformin 500 mg PO TID 3 months omeprazole 20 mg PO DAILY pen needle, diabetic (BD Marilyn 2nd Gen Pen Needle) USE TWICE DAILY pen needle, diabetic (BD Marilyn 2nd Gen Pen Needle) 1 ea miscellaneous BID simvastatin 10 mg PO DAILY HPI HPI Shoulder Inj: Details: 68-year-old female who presents today to the office for a shoulder injection. Denies any recent cough, cold, infection, fever or other significant changes in medical history since last office visit.? Past procedures 11/06/23: Intercostal nerve block, RIGHT, T3 & T4, ultrasound-guided: % relief. 08/21/23: Intercostal nerve block, RIGHT, T3 & T4, ultrasound-guided: >75% relief for 4 months. 08/07/23: Right subacromial bursa injection, US guided 08/07/23: Right diagnostic AC joint injection, US guided: 90% relief. 06/25/23: Interlaminar epidural steroid injection, C7/T1, right parasaggital: 60% relief. 04/23/23: Peripheral Nerve Stimulation Temporary Lead Placement, Ultrasound-Guided, Axillary Nerve, Right: No significant relief 02/23/23: Right subacromial bursa injection, ultrasound guided: No significant relief 12/24/22: Peripheral Nerve Stimulation Temporary Lead Placement, Ultrasound and Fluoroscopy-Guided, 4th Intercostal nerve, Right: Resolution of upper back radiating pain 11/10/22: Right AC joint injection and subacromial bursa injection under US guidance: 50% relief for 2 months 11/03/22: Right diagnostic suprascapular nerve block, US guided: 100% numbness for 24 hours, but it did not affect her upper lateral thoracic/axilla pain. 10/20/22: Right 4th/5th intercostal nerve block, ultrasound-guided: >80% relief for a day for chest wall pain. 10/01/22: Intercostal nerve block, right, 8th and 9th, ultrasound-guided: inadequate mapping. 08/20/2022: Thoracic Medial Branch Block, Right, T8, T9, T10 medial branches: 50% relief for 2 hours. 07/02/2022: Interlaminar epidural steroid injection, C7/T1, Right parasaggital: 40% relief. [facility] Medical History BPPV (benign paroxysmal positional vertigo) Fibromyalgia History of smoking Osteoarthritis, shoulder Surgical History History of appendectomy History of removal of ovarian cyst History of wisdom tooth extraction Family History Father Medical history unknown Mother CVD (cardiovascular disease) Family/Other FH: mental illness Social History Housing: Apartment Alcohol intake: never Patient Tobacco Use Status: Former Tobacco user e-Cigarette/Vaping Use: Never Used Second Hand Smoke Exposure: No service: No Current occupational status: retired and disabled Cognitive needs: No Hearing needs: No Vision needs: Yes (wear glasses) Review of Systems Const All systems reviewed & are unremarkable except as noted in HPI and below Physical Exam Vital Signs: Last Vital Signs Pulse 62 12/18/23 10:48 Resp 15 12/18/23 10:48 BP 134/62 12/18/23 10:48 Pulse Ox 987 H 12/18/23 10:48 Oxygen Delivery Method Room Air 12/18/23 10:48 BMI result Body Mass Index 32.9 General: Appears afebrile. Alert and oriented. Mood and affect appropriate. Follows and participates in conversation appropriately. Respiratory effort is unlabored. Able to transition from sit to stand unassisted. Ambulates with bilaterally normal heel strike and toe off. Office Procedures Joint Injection/Aspiration Joint Injection/Aspiration Details: Right subacromial bursa injection, US guided Primary Site: right shoulder Prep: site was prepped using sterile technique Injected: 20 mg of, Kenalog (with 2 mL of 0.5% ropivacaine ) and in the subcromial space (right) Approach Used: posterolateral Procedure: The patient tolerated the procedure well Coding Details: An ultrasound image of the injection was taken and stored in the permanent record. - Acromioclavicular with ultrasound guidance (right, US guided) Procedure code (CPT) selection complete Results Reviewed Results Reviewed: No imaging is available for review. Assessment & Plan Assessment & Plan (1) Adhesive capsulitis of right shoulder: Code(s): M75.01 - Adhesive capsulitis of right shoulder Category: Medical (2) Right shoulder pain: Code(s): M25.511 - Pain in right shoulder Category: Medical Qualifiers: Chronicity: chronic Qualified Code(s): M25.511 - Pain in right shoulder; G89.29 - Other chronic pain Plan Patient is status post right subacromial bursa injection, US guided. Patient tolerated procedure well and was discharged home in stable condition with discharge instructions. All questions were answered. We will follow-up in three weeks via telephone or in clinic to assess response to therapy. Scribed for Dr. Varner by Pedrito Tran, medical equipment sales, on 12/18/2023. I, Dr. Varner, have personally reviewed and agree with the information entered by the scribe. Coding Level of Care Code Procedure Only Diagnoses Adhesive capsulitis of right shoulder M75.01 Chronic right shoulder pain M25.511; G89.29 Chronicity: chronic CPT Codes Coding - Joint 6: 41482 - Acromioclavicular with ultrasound guidance ([id number])
[2023-12-18 10:48] VITALS: BP 134/62; PULSE 62; RESP 15; O2SAT 987; BMI 32.9
== END 2023-12-18 11:12 | disposition home or self-care (01) ==
PROVIDERS: PCP Physician Assistant; Visit Provider Internal Medicine
DX: M75.01 Adhesive capsulitis of right shoulder (principal)
CPT/HCPCS: 20606

== ENCOUNTER → 2023-12-18 10:46 | Outpatient (BNVA) | payer MEDICARE, SELFPAY | PROVIDERS: PCP Physician Assistant; Visit Provider Internal Medicine | DX: M75.01 Adhesive capsulitis of right shoulder (principal); M25.511 Pain in right shoulder; G89.29 Other chronic pain | CPT/HCPCS: 20606; J2795; J3301 ==

== ENCOUNTER 2024-01-08 11:10 | Outpatient (AMB) | payer MEDICARE, SELFPAY ==
[2024-01-08 11:13] VITALS: BP 115/59; PULSE 81; RESP 16; O2SAT 98; BMI 32.9
--- NOTE | 2024-01-08 11:13 | MHC.OFFVIS ---
Vital Signs 01/08/24 11:13 Height 5 ft 1 in Weight 174 lb BMI 32.9 BP 115/59 L Blood Pressure Location Lt brachial Position Sitting Respiration 16 Pulse 81 Pulse Source Pulse Oximeter Pulse Oximetry (%) 98 Oxygen Delivery Method Room Air Intake Visit Reasons: INTERCOSTAL NB Allergies tramadol Allergy (Mild, Verified 01/08/24 11:15) Unknown fentanyl [From DURAGESIC] Adverse Reaction (Intermediate, Verified 01/08/24 11:15) NAUSEA & VOMITING tizanidine Adverse Reaction (Intermediate, Verified 01/08/24 11:15) fatigue states multiple meds does not Allergy (Unknown, Uncoded 01/08/24 11:15) Unknown Medication List - Last Reconciled 01/08/24 by Chelsi Easley LPN blood sugar diagnostic (logolineup Verio test strips) USE ONE STRIP THREE TIMES A DAY hydrochlorothiazide 25 mg PO QAM ibuprofen 800 mg PO .HS insulin glargine (Basaglar KwikPen U-100 Insulin) 25 units (0.25 mL) subcut BEDTIME 30 days insulin regular human (Novolin R FlexPen) 1 sliding scale dose subcut USEASDIRECTD lancets ([employer] Delica Lancets) 1 gauge topical TID 30 days lancets ([employer] Delica Plus Lancet) Testing 3 times a day lidocaine 5% 1 patch topical DAILY lisinopril 10 mg PO DAILY lorazepam 0.5 mg PO BID meclizine 12.5 mg PO TID PRN 5 days metformin 500 mg PO TID 3 months omeprazole 20 mg PO DAILY pen needle, diabetic (BD Marilyn 2nd Gen Pen Needle) USE TWICE DAILY pen needle, diabetic (BD Marilyn 2nd Gen Pen Needle) 1 ea miscellaneous BID simvastatin 10 mg PO DAILY HPI HPI INTERCOSTAL NB: Details: 68-year-old female who presents today to the office for intercostal nerve block. Denies any recent cough, cold, infection, fever or other significant changes in medical history since last office visit.? Past procedures 12/18/23: Right subacromial bursa injection, US guided: % relief. 11/06/23: Intercostal nerve block, RIGHT, T3 & T4, ultrasound-guided: % relief. 08/21/23: Intercostal nerve block, RIGHT, T3 & T4, ultrasound-guided: >75% relief for 4 months. 08/07/23: Right subacromial bursa injection, US guided 08/07/23: Right diagnostic AC joint injection, US guided: 90% relief. 06/25/23: Interlaminar epidural steroid injection, C7/T1, right parasaggital: 60% relief. 04/23/23: Peripheral Nerve Stimulation Temporary Lead Placement, Ultrasound-Guided, Axillary Nerve, Right: No significant relief 02/23/23: Right subacromial bursa injection, ultrasound guided: No significant relief 12/24/22: Peripheral Nerve Stimulation Temporary Lead Placement, Ultrasound and Fluoroscopy-Guided, 4th Intercostal nerve, Right: Resolution of upper back radiating pain 11/10/22: Right AC joint injection and subacromial bursa injection under US guidance: 50% relief for 2 months 11/03/22: Right diagnostic suprascapular nerve block, US guided: 100% numbness for 24 hours, but it did not affect her upper lateral thoracic/axilla pain. 10/20/22: Right 4th/5th intercostal nerve block, ultrasound-guided: >80% relief for a day for chest wall pain. 10/01/22: Intercostal nerve block, right, 8th and 9th, ultrasound-guided: inadequate mapping. 08/20/2022: Thoracic Medial Branch Block, Right, T8, T9, T10 medial branches: 50% relief for 2 hours. 07/02/2022: Interlaminar epidural steroid injection, C7/T1, Right parasaggital: 40% relief. PFSH Medical History BPPV (benign paroxysmal positional vertigo) Fibromyalgia History of smoking Osteoarthritis, shoulder Surgical History History of appendectomy History of removal of ovarian cyst History of wisdom tooth extraction Family History Father Medical history unknown Mother CVD (cardiovascular disease) Family/Other FH: mental illness Social History Housing: Apartment Alcohol intake: never Patient Tobacco Use Status: Former Tobacco user e-Cigarette/Vaping Use: Never Used Second Hand Smoke Exposure: No service: No Current occupational status: retired and disabled Cognitive needs: No Hearing needs: No Vision needs: Yes (wear glasses) Review of Systems Const All systems reviewed & are unremarkable except as noted in HPI and below Physical Exam Vital Signs: Last Vital Signs Pulse 81 01/08/24 11:13 Resp 16 01/08/24 11:13 BP 115/59 L 01/08/24 11:13 Pulse Ox 98 01/08/24 11:13 Oxygen Delivery Method Room Air 01/08/24 11:13 BMI result Body Mass Index 32.9 General: Appears afebrile. Alert and oriented. Mood and affect appropriate. Follows and participates in conversation appropriately. Respiratory effort is unlabored. Able to transition from sit to stand unassisted. Ambulates with bilaterally normal heel strike and toe off. Office Procedures Nerve Block Details: Intercostal nerve block, RIGHT, T3 & T4, ultrasound-guided After obtaining written consent, pre-procedure blood pressure and heart rate were stable and recorded in the nursing record. The patient was placed prone on the table. The relevant levels of the intercostal nerves were physically palpated corresponding to the patient's pain and marked. Using ultrasound, the appropriate landmarks including the rib, intercostal muscles and pleura were identified. A 21 gauge 80 mm echostim needle was advanced under sonographic guidance in proximity to the intercostal nerve. Aspiration was negative for heme and air. 5 cc of ropivacaine 0.5% was injected around each of the targeted nerves. The needle was removed, skin cleansed and a sterile bandage was applied. The patient tolerated the procedure well and no complications were encountered. Following the procedure the patient's vital signs and respiration were stable. The patient was discharged home in good condition with post-procedural instructions. Time Out: Immediately prior to the procedure, the following was verbally confirmed that there is a signed consent form and that the correct patient, planned procedure, site and side are consistent with documentation and that necessary equipment and/or blood products are available prior to the start of the case. Complications: none EBL: <1 cc An ultrasound image of the injection was taken and stored in the permanent record. Procedure code (CPT) selection complete Results Reviewed Results Reviewed: No imaging is available for review. 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 Patient tolerated procedure well and was discharged home in stable condition with discharge instructions. All questions were answered. We will follow-up as needed. Scribed for Dr. Varner by Pedrito Tran, medical physics researcher, on 01/08/2024. I, Dr. Varner, have personally reviewed and agree with the information entered by the scribe. Coding Level of Care Code Procedure Only Diagnoses Intercostal neuralgia G58.8
== END 2024-01-08 11:33 | disposition home or self-care (01) ==
PROVIDERS: PCP Physician Assistant; Visit Provider Internal Medicine
DX: G58.8 Other specified mononeuropathies (principal)
CPT/HCPCS: 64420; 76942

== ENCOUNTER → 2024-01-08 11:10 | Outpatient (BNVA) | payer MEDICARE, SELFPAY | PROVIDERS: PCP Physician Assistant; Visit Provider Internal Medicine | DX: G58.8 Other specified mononeuropathies (principal) | CPT/HCPCS: 64420; J2795; J3301 ==

== ENCOUNTER 2024-03-11 10:38 | Outpatient (AMB) | payer MEDICARE, SELFPAY ==
--- NOTE | 2024-03-11 10:43 | MHC.OFFVIS ---
Vital Signs 03/11/24 10:45 Height 5 ft 1 in Weight 177 lb BMI 33.4 BP 127/68 Blood Pressure Location Lt brachial Position Sitting Respiration 16 Pulse 67 Pulse Source Pulse Oximeter Pulse Oximetry (%) 99 Oxygen Delivery Method Room Air Intake Visit Reasons: RIGHT SHOULDER INJECTION Allergies tramadol Allergy (Mild, Verified 03/11/24 10:46) Unknown fentanyl [From DURAGESIC] Adverse Reaction (Intermediate, Verified 03/11/24 10:46) NAUSEA & VOMITING tizanidine Adverse Reaction (Intermediate, Verified 03/11/24 10:46) fatigue states multiple meds does not Allergy (Unknown, Uncoded 03/11/24 10:46) Unknown Medication List - Last Reconciled 03/11/24 by Chelsi Easley LPN blood sugar diagnostic ([employer] Verio test strips) USE ONE STRIP THREE TIMES A DAY hydrochlorothiazide 25 mg PO QAM ibuprofen 800 mg PO .HS insulin glargine (Basaglar KwikPen U-100 Insulin) 25 units (0.25 mL) subcut BEDTIME 30 days insulin regular human (Novolin R FlexPen) 1 sliding scale dose subcut USEASDIRECTD lancets ([employer] Delica Lancets) 1 gauge topical TID 30 days lancets ([employer] Delica Plus Lancet) Testing 3 times a day lidocaine 5% 1 patch topical DAILY lisinopril 10 mg PO DAILY lorazepam 0.5 mg PO BID meclizine 12.5 mg PO TID PRN 5 days metformin 500 mg PO TID 3 months omeprazole 20 mg PO DAILY pen needle, diabetic (BD Marilyn 2nd Gen Pen Needle) USE TWICE DAILY pen needle, diabetic (BD Marilyn 2nd Gen Pen Needle) 1 ea miscellaneous BID simvastatin 10 mg PO DAILY HPI HPI RIGHT SHOULDER INJECTION: Details: 68-year-old female who presents today to the office for a right shoulder injection. Denies any recent cough, cold, infection, fever or other significant changes in medical history since last office visit.? Past procedures 01/08/24: Intercostal nerve block, RIGHT, T3 & T4, ultrasound-guided: 60% relief. 12/18/23: Right subacromial bursa injection, US guided: >75% relief. 11/06/23: Intercostal nerve block, RIGHT, T3 & T4, ultrasound-guided: 60% relief. 08/21/23: Intercostal nerve block, RIGHT, T3 & T4, ultrasound-guided: >75% relief for 4 months. 08/07/23: Right subacromial bursa injection, US guided 08/07/23: Right diagnostic AC joint injection, US guided: 90% relief. 06/25/23: Interlaminar epidural steroid injection, C7/T1, right parasaggital: 60% relief. 04/23/23: Peripheral Nerve Stimulation Temporary Lead Placement, Ultrasound-Guided, Axillary Nerve, Right: No significant relief 02/23/23: Right subacromial bursa injection, ultrasound guided: No significant relief 12/24/22: Peripheral Nerve Stimulation Temporary Lead Placement, Ultrasound and Fluoroscopy-Guided, 4th Intercostal nerve, Right: Resolution of upper back radiating pain 11/10/22: Right AC joint injection and subacromial bursa injection under US guidance: 50% relief for 2 months 11/03/22: Right diagnostic suprascapular nerve block, US guided: 100% numbness for 24 hours, but it did not affect her upper lateral thoracic/axilla pain. 10/20/22: Right 4th/5th intercostal nerve block, ultrasound-guided: >80% relief for a day for chest wall pain. 10/01/22: Intercostal nerve block, right, 8th and 9th, ultrasound-guided: inadequate mapping. 08/20/2022: Thoracic Medial Branch Block, Right, T8, T9, T10 medial branches: 50% relief for 2 hours. 07/02/2022: Interlaminar epidural steroid injection, C7/T1, Right parasaggital: 40% relief. PFSH Medical History BPPV (benign paroxysmal positional vertigo) Fibromyalgia History of smoking Osteoarthritis, shoulder Surgical History History of appendectomy History of removal of ovarian cyst History of wisdom tooth extraction Family History Father Medical history unknown Mother CVD (cardiovascular disease) Family/Other FH: mental illness Social History Housing: Apartment Alcohol intake: never Patient Tobacco Use Status: Former Tobacco user e-Cigarette/Vaping Use: Never Used Second Hand Smoke Exposure: No service: No Current occupational status: retired and disabled Cognitive needs: No Hearing needs: No Vision needs: Yes (wear glasses) Review of Systems Const All systems reviewed & are unremarkable except as noted in HPI and below Physical Exam Vital Signs: Last Vital Signs Pulse 67 03/11/24 10:45 Resp 16 03/11/24 10:45 BP 127/68 03/11/24 10:45 Pulse Ox 99 03/11/24 10:45 Oxygen Delivery Method Room Air 03/11/24 10:45 BMI result Body Mass Index 33.4 General: Appears afebrile. Alert and oriented. Mood and affect appropriate. Follows and participates in conversation appropriately. Respiratory effort is unlabored. Able to transition from sit to stand unassisted. Ambulates with bilaterally normal heel strike and toe off. Office Procedures AMB Joint Injection/Aspiration Joint Injection/Aspiration Details: Right AC joint injection, US guided Primary Site: right shoulder Prep: site was prepped using sterile technique Injected: 20 mg of, Kenalog (2 mL 0.5% ropivacaine ) and in the joint Approach Used: anterior Procedure: The patient tolerated the procedure well Coding Details: An ultrasound image of the injection was taken and stored in the permanent record. - Acromioclavicular with ultrasound guidance (right ) Procedure code (CPT) selection complete AMB Joint Injection/Aspiration Joint Injection/Aspiration Details: Right subacromial bursa injection, US guided Primary Site: right shoulder Prep: site was prepped using sterile technique Injected: 20 mg of, Kenalog (with 2 mL of 0.5% ropivacaine ) and in the subcromial space (right ) Approach Used: posterolateral Procedure: The patient tolerated the procedure well Coding Details: An ultrasound image of the injection was taken and stored in the permanent record. - Acromioclavicular with ultrasound guidance (Right) Procedure code (CPT) selection complete Results Reviewed Results Reviewed: No imaging is available for review. Assessment & Plan Assessment & Plan (1) Acromioclavicular joint arthritis: Code(s): M19.019 - Primary osteoarthritis, unspecified shoulder Category: Medical (2) Right shoulder pain: Code(s): M25.511 - Pain in right shoulder Category: Medical Qualifiers: Chronicity: chronic Qualified Code(s): M25.511 - Pain in right shoulder; G89.29 - Other chronic pain Plan Patient is status post right AC joint and right subacromial bursa injections, US guided. Patient tolerated procedure well and was discharged home in stable condition with discharge instructions. All questions were answered. Follow-up as needed. Scribed for Dr. Varner by Pedrito Tran, medical support assistant, on 03/11/2024. I, Dr. Varner, have personally reviewed and agree with the information entered by the scribe. Coding Level of Care Code Procedure Only Diagnoses Acromioclavicular joint arthritis M19.019 Chronic right shoulder pain M25.511; G89.29 Chronicity: chronic CPT Codes Coding - Joint 6: 60842 - Acromioclavicular with ultrasound guidance ([id number]) Coding - Joint 6: 11883 - Acromioclavicular with ultrasound guidance ([id number])
[2024-03-11 10:45] VITALS: BP 127/68; PULSE 67; RESP 16; O2SAT 99; BMI 33.4
--- OUTSIDE RECORDS SUMMARY | 2024-03-11 10:46 | XMS_ITS ---
Author Organization [facility] Address [address] [place] [address] Care Team Providers Care Dag Coater Name Role Phone Tye Butler Primary Care Provider Unavailab Trevon Ornelas Unavailable [phone] REASON FOR VISIT screening PROBLEMS Problem Type ICD Code Onset Dates Problem Status W/U Status Risk SNOMED Code Notes Problem Diverticulosis of large intestine without perforation or abscess without bleeding (K57.30) Active confirmed Diverticul ar disease of colon (499381590) Encounters Encounter Location Date Provider Diagnosis [facility] Outpatient [address], [place] [id number] 09/26/2022 Trevon Burger Encounter for scre ening colonoscopy Z12.11 ; Rectal polyp K62.1 ; Diverticulosis of large intestine without perforation or abscess without bleeding K57.30 and Other hemorrhoids K64.8 ASSESSMENTS Encounter Date Diagnosis Assessment Notes Treatment Notes Treatment Clinical Notes 09/26/2022 Encounter for screening colonoscopy (ICD-10 - Z12.11) 09/26/2022 Rectal polyp (ICD-10 - K62.1) 09/26/2022 Diverticulosis of large intestine without perforation or abscess without bleeding (ICD-10 - K57.30) 09/26/2022 Other hemorrhoids (ICD-10 - K64.8) PLAN OF TREATMENT Next Appt Details Follow Up: prn, Reason:
--- OUTSIDE RECORDS SUMMARY | 2024-03-11 10:47 | XMS_ITS | Patient Health Record ---
Author Organization [facility] Address [address] [place] [id number] Care Team Providers Care Classified Ad Taker Name Role Phone Tye Butler Primary Care Provider Trevon Abad Unavailable [phone] ALLERGIES Allergen (clinical drug ingredient) Drug/Non Drug Allergy documented on EMR Reaction Allergy Type Onset Date Status morphine MS Contin Unknown Drug Allergy Active Duragesic-100 Unknown Drug Allergy Act haily REASON FOR REFERRAL No Information MEDICATIONS Medication SIG (Take, Route, Frequency, Duration) Notes Start Date End Date Status Simvastatin 10 MG 1 tablet in the even ing Orally Once a day Active Lisinopril 10 MG 1 tablet Orally Once a day Active hydroCHLOROthiazide 25 MG 1 tablet in th e morning Orally Once a day Active Ativan 0.5 MG 1 tablet as needed Orally Twice a day Active Basaglar KwikPen 100 UNIT/ML Subcutaneous for 60 Active metFORMIN HCl 500 MG Oral for 90 Active LORazepam 0.5 MG Oral for 30 A ctive Omeprazole 20 MG Oral for 90 A ctive SOCIAL HISTORY Tobacco Use: Social History Observation Description Date Details (start date - stop date) Former Smoker NA - NA Sex Assigned At : Social History Observation Description Sex Assigned At Unknown Tobacco Use/Smoking Question Answer Notes Patient is a former smoker How long has it been since you last smoked? 1-5 years PROBLEMS Problem Type ICD Code Onset Dates Problem Status W/U Status Risk SNOMED Code Notes Problem Irritable bowel syndrome with diarrhea (K58.0) Active confirmed 497264562 Problem Gastroesophageal reflux disease without esophagitis (K21.9) Active confirmed 145237825 Problem Encounter for screening for malignant neoplasm of colon (Z12.11) Active confirmed 846931100 Problem Encounter for screening for malignant neoplasm of rectum (Z12.12) Active confirmed Screening for malignant neoplasm of rectum (164426358) Problem Diverticulosis of large intestine without perforation or abscess without bleeding (K57.30) Active confirmed Diverticul ar disease of colon (234215922) PLAN OF TREATMENT Future Test Test Name Order Date COLONOSCOPY 07/29/2022 Insurance Providers Payer Name Payer Address Payer Phone Subscriber Number Group Number Insured Name Patient Relationship to Insured Coverage Start Date Coverage End Date MEDICARE OF [place] [address] [place] [address] [id number] MARYELLEN ATKINSONORAH Self - patient is the insured MEDICAL (GENERAL) HISTORY Medical History History ICD Code Colonoscopy 02-21-2008--neg. colon biopsies, diverticulosis, internal hemorrhoids; she also had a negative colonoscopy in 04/[address] Rich Lr GERD-EGD 01/2008-mild reflux-no Troy' s, normal duodenal biopsies Denies PA,CVA,renal disease Hyperlipidemia HTN Irritable bowel syndrome COPD IDDM Surgical History Surgery Date(Month/Year) appendectomy tubal ligation cyst removal from an ovary
== END 2024-03-11 11:05 | disposition home or self-care (01) ==
PROVIDERS: PCP Physician Assistant; Visit Provider Internal Medicine
DX: M25.511 Pain in right shoulder (principal)
CPT/HCPCS: 20606

== ENCOUNTER → 2024-03-11 10:38 | Outpatient (BNVA) | payer MEDICARE, SELFPAY | PROVIDERS: PCP Physician Assistant; Visit Provider Internal Medicine | DX: M19.019 Primary osteoarthritis, unspecified shoulder (principal); M25.511 Pain in right shoulder; G89.29 Other chronic pain | CPT/HCPCS: 20606; 20611; J2795; J3301 ==

== ENCOUNTER 2024-04-15 12:04 | Outpatient (REF) | payer MEDICARE, SELFPAY ==
--- NOTE | ~2024-04-15 | XR_ITS ---
EXAMINATION: XR THORACIC SPINE CLINICAL INFORMATION: M47.814 - Spondylosis without myelopathy or radiculopathy, thoracic region COMPARISON: None available. TECHNIQUE: 3 views of the thoracic spine were obtained. FINDINGS: There is exaggerated thoracic kyphosis. The vertebral heights, alignment is normal. There is mild loss of disc heights in the mid dorsal spine. There is moderate spondylosis in mid dorsal spine as well. No acute fracture, lytic or sclerotic process seen. The paravertebral soft tissues are normal. XR/XR thoracic spine 2V IMPRESSION: Exaggerated thoracic kyphosis. No visible acute fracture, dislocation or subluxation seen. There is moderate spondylosis mid dorsal spine. Electronically signed by: Ryan Addison MD 04/18/2024 09:44 AM [facility]
--- NOTE | ~2024-04-15 | XR_ITS ---
EXAMINATION: XR LUMBOSACRAL SPINE CLINICAL INFORMATION: M54.50 - Low back pain, unspecified COMPARISON: None available. TECHNIQUE: Three views of the lumbosacral spine. FINDINGS: There is maintained lumbar lordosis. There is loss of L4-5 and L5-S1 disc heights. Rest of the disc heights are normal. There is no visible acute fracture, dislocation or subluxation seen. No lytic or sclerotic process seen. XR/XR lumbar spine 2-3V IMPRESSION: Mild degenerative disc changes L4-5 and L5-S1 disc levels. No visible acute fracture or dislocation seen. Electronically signed by: Ryan Addison MD 04/18/2024 09:43 AM [facility]
== END 2024-04-15 12:05 | disposition home or self-care (01) ==
LOC: HO.XRAY 12:04
PROVIDERS: PCP Physician Assistant; Visit Provider Internal Medicine
DX: M54.50 Low back pain, unspecified (principal); M47.814 Spondylosis without myelopathy or radiculopathy, thoracic region
CPT/HCPCS: 72070; 72100; 99212

== ENCOUNTER 2024-04-15 12:04 | Outpatient (AMB) | payer MEDICARE, SELFPAY ==
--- NOTE | 2024-04-15 12:15 | A.OFFVIS_ITS ---
Vital Signs 04/15/24 12:16 Height 5 ft 1 in Weight 177 lb BMI 33.4 BP 132/76 Blood Pressure Location Lt brachial Position Sitting Respiration 16 Pulse 76 Pulse Source Pulse Oximeter Pulse Oximetry (%) 96 Oxygen Delivery Method Room Air Intake Visit Reasons: INTERCOSTAL NB Allergies tramadol Allergy (Mild, Verified 05/02/24 11:52) Unknown fentanyl [From DURAGESIC] Adverse Reaction (Intermediate, Verified 05/02/24 11:52) NAUSEA & VOMITING tizanidine Adverse Reaction (Intermediate, Verified 05/02/24 11:52) fatigue states multiple meds does not Allergy (Unknown, Uncoded 05/02/24 11:52) Unknown Medication List - Last Reconciled 04/15/24 by Chelsi Easley LPN blood sugar diagnostic ([employer] Verio test strips) USE ONE STRIP THREE TIMES A DAY hydrochlorothiazide 25 mg PO QAM ibuprofen 800 mg PO .HS insulin glargine (Basaglar KwikPen U-100 Insulin) 25 units (0.25 mL) subcut BEDTIME 30 days insulin regular human (Novolin R FlexPen) 1 sliding scale dose subcut USEASDIRECTD lancets ([employer] Delica Lancets) 1 gauge topical TID 30 days lancets (OneTouch Delica Plus Lancet) Testing 3 times a day lidocaine 5% 1 patch topical DAILY lisinopril 10 mg PO DAILY lorazepam 0.5 mg PO BID meclizine 12.5 mg PO TID PRN 5 days metformin 500 mg PO TID 3 months omeprazole 20 mg PO DAILY pen needle, diabetic (BD Marilyn 2nd Gen Pen Needle) USE TWICE DAILY pen needle, diabetic (BD Marilyn 2nd Gen Pen Needle) 1 ea miscellaneous BID simvastatin 10 mg PO DAILY HPI HPI INTERCOSTAL NB: Details: presented for ICNB but reports pain in the thoracic midline since a recent fall c/f t/l-spine VCF On exam today: Appears afebrile. Alert and oriented. Mood and affect appropriate. Follows and participates in conversation appropriately. Respiratory effort is unlabored. Able to transition from sit to stand unassisted. Ambulates with bilaterally normal heel strike and toe off. Able to stand and walk on toes and heels. [facility] Medical History BPPV (benign paroxysmal positional vertigo) Fibromyalgia History of smoking Osteoarthritis, shoulder Surgical History History of appendectomy History of removal of ovarian cyst History of wisdom tooth extraction Family History Father Medical history unknown Mother CVD (cardiovascular disease) Family/Other FH: mental illness Social History Housing: Apartment Alcohol intake: never Patient Tobacco Use Status: Former Tobacco user e-Cigarette/Vaping Use: Never Used Second Hand Smoke Exposure: No service: No Current occupational status: retired and disabled Cognitive needs: No Hearing needs: No Vision needs: Yes (wear glasses) Physical Exam Vital Signs: Last Vital Signs Pulse 76 04/15/24 12:16 Resp 16 04/15/24 12:16 BP 132/76 04/15/24 12:16 Pulse Ox 96 04/15/24 12:16 Oxygen Delivery Method Room Air 04/15/24 12:16 BMI result Body Mass Index 33.4 Assessment & Plan Assessment & Plan (1) Thoracic spondylosis: Code(s): M47.814 - Spondylosis without myelopathy or radiculopathy, thoracic region Category: Medical (2) Low back pain: Code(s): M54.50 - Low back pain, unspecified Category: Medical Plan xr t/l spine to r/o VCF f/u after xr to re-eval for ICNB Orders: Orders XR thoracic spine 2V 04/15/24 M47.814 - Spondylosis without myelopathy or radiculopathy, thoracic region XR lumbar spine 2-3V 04/15/24 M54.50 - Low back pain, unspecified, M47.814 - Spondylosis without myelopathy or radiculopathy, thoracic region Coding Level of Care Code Est Pt Level 3 (21837) Diagnoses Thoracic spondylosis M47.814 Low back pain M54.50
[2024-04-15 12:16] VITALS: BP 132/76; PULSE 76; RESP 16; O2SAT 96; BMI 33.4
== END 2024-04-15 12:42 | disposition home or self-care (01) ==
LOC: HO.PMC 12:04
PROVIDERS: PCP Physician Assistant; Visit Provider Internal Medicine
DX: M47.814 Spondylosis without myelopathy or radiculopathy, thoracic region (principal); M54.50 Low back pain, unspecified
CPT/HCPCS: 99213

== ENCOUNTER → 2024-04-15 12:56 | Outpatient (BNV) | payer MEDICARE, SELFPAY | PROVIDERS: PCP Physician Assistant; Visit Provider Radiology Diagnostic Radiology | DX: M54.50 Low back pain, unspecified (principal); M40.204 Unspecified kyphosis, thoracic region; M47.814 Spondylosis without myelopathy or radiculopathy, thoracic region | CPT/HCPCS: 72070; 72100 ==

== ENCOUNTER 2024-05-02 10:32 | Outpatient (REF) | payer MEDICARE, SELFPAY ==
[2024-05-02 11:59] LABS: Hematocrit 38.9 % (37.0-47.0); Hemoglobin 12.9 g/dl (12.0-16.0); Mean Corpuscular HGB Conc 33.2 g/dl (31.0-35.0); Mean Corpuscular Hemoglobin 30.1 pg (27.0-33.0); Mean Corpuscular Volume 90.7 fL (80.0-98.0); Mean Platelet Volume 10.2 fL (9.4-12.3); Platelet Count 264 X10*3/uL (160-400); Red Blood Count 4.29 X10*6/uL (4.20-5.50); Red Cell Distribution Width 12.7 % (11.0-16.0); White Blood Count 8.2 X10*3/uL (4.8-10.8)
[2024-05-02 12:44] LABS: Creatinine Urine 140.26 mg/dL; Microalbum/Creatinine Ratio Ur 7.8 ug/mg cr (<30)
[2024-05-02 12:57] LABS: Alanine Aminotransferase 36 U/L (0-31); Alkaline Phosphatase 80 U/L (39-117); Anion Gap 12 (12-20); Aspartate Amino Transferase 45 U/L (5-31); Bilirubin Total 1.1 mg/dL (0.0-1.0); Blood Urea Nitrogen 23 mg/dL (9-16); Calcium 10.2 mg/dL (8.4-10.2); Carbon Dioxide 26 mmol/L (22-29); Chloride 106 mmol/L (96-108); Cholesterol 145 mg/dL (<200); Estimated Glomerular Filt Rate > 60; Glucose Fasting 160 mg/dL (60-99); HDL Cholesterol 37 mg/dL (>40); Potassium 4.4 mmol/L (3.3-5.1); Sodium 140 mmol/L (135-145); Total Protein 7.9 g/dL (6.5-8.0)
[2024-05-02 13:06] LABS: LDL Cholesterol Calculated 77 mg/dL (<100); Triglycerides 156 mg/dL (<150)
== END 2024-05-02 10:33 | disposition home or self-care (01) ==
LOC: HO.LAB 10:32
PROVIDERS: PCP Physician Assistant; Visit Provider Physician Assistant
DX: M47.814 Spondylosis without myelopathy or radiculopathy, thoracic region (principal); G89.29 Other chronic pain; M25.511 Pain in right shoulder; G58.8 Other specified mononeuropathies; E11.9 Type 2 diabetes mellitus without complications; I10 Essential (primary) hypertension; E78.2 Mixed hyperlipidemia; Z79.4 Long term (current) use of insulin; Z79.899 Other long term (current) drug therapy
CPT/HCPCS: 36415; 80053; 80061; 82043; 82570; 83036; 85027; 96127; 99212

== ENCOUNTER 2024-05-02 11:46 | Outpatient (AMB) | payer MEDICARE, SELFPAY ==
[2024-05-02 11:51] VITALS: BP 144/65; PULSE 77; RESP 16; BMI 33.4
--- NOTE | 2024-05-02 11:51 | MHC.OFFVIS ---
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 [employer] Communications Required: No Allergies tramadol Allergy (Mild, Verified 05/02/24 11:52) Unknown fentanyl [From DURAGESIC] Adverse Reaction (Intermediate, Verified 05/02/24 11:52) NAUSEA & VOMITING tizanidine Adverse Reaction (Intermediate, Verified 05/02/24 11:52) fatigue states multiple meds does not Allergy (Unknown, Uncoded 05/02/24 11:52) Unknown Medication List - Last Reconciled 05/02/24 by Chelsi Easley LPN blood sugar diagnostic (OneTouch Verio test strips) USE ONE STRIP THREE TIMES A DAY hydrochlorothiazide 25 mg PO QAM ibuprofen 800 mg PO .HS insulin glargine (Basaglar KwikPen U-100 Insulin) 25 units (0.25 mL) subcut BEDTIME 30 days insulin regular human (Novolin R FlexPen) 1 sliding scale dose subcut USEASDIRECTD lancets (OneTouch Delica Lancets) 1 gauge topical TID 30 days lancets (OneTouch Delica Plus Lancet) Testing 3 times a day lidocaine 5% 1 patch topical DAILY lisinopril 10 mg PO DAILY lorazepam 0.5 mg PO BID meclizine 12.5 mg PO TID PRN 5 days metformin 500 mg PO TID 3 months omeprazole 20 mg PO DAILY pen needle, diabetic (BD Marilyn 2nd Gen Pen Needle) USE TWICE DAILY pen needle, diabetic (BD Marilyn 2nd Gen Pen Needle) 1 ea miscellaneous BID simvastatin 10 mg PO DAILY HPI HPI Discuss X-Ray Results: Details: History of Present Illness The patient is a 68-year-old female presenting with chronic right upper back pain. The patient sustained a fall leading to concern for vertebral compression fracture, for which x-rays were performed. The x-ray results showed no evidence of any acute fractures in the thoracic or lumbar spine. The right upper back pain has been a persistent issue and was described as chronic. The patient has a history of management of shoulder pain with bilateral corticosteroid injections in February, which were successful in alleviating shoulder symptoms. She expresses interest in repeating intracostal nerve blocks, which have been effective in managing her chronic back pain previously. We plan to consider the timing of further corticosteroid use, as prior injections have been administered recently. Pain Description - Chronic right upper back pain persistent over time. - Previously managed effectively with intracostal nerve blocks. - Pain continues despite absence of acute fracture on imaging. - Shoulder pain managed successfully with corticosteroid injections. Physical Exam Appears afebrile. Alert and oriented. Mood and affect appropriate. Follows and participates in conversation appropriately. Respiratory effort is unlabored. Able to transition from sit to stand unassisted. Ambulates with bilaterally normal heel strike and toe off. Able to stand and walk on toes and heels. Results - Imaging: No evidence of acute fractures on lumbar and thoracic spine x-rays. Pain Management - Affect: Patient affected by persistent right upper back pain, impacting quality of life. - Analgesia: Interested in repeating intracostal nerve blocks, previously effective for pain management. - Adverse Effects: None reported from previous injections. - Activities of Daily Living: Engaged in activities with some pain-related limitation. - Aberrant Drug-Related Behaviors: None reported or observed. [facility] Medical History BPPV (benign paroxysmal positional vertigo) Fibromyalgia History of smoking Osteoarthritis, shoulder Surgical History History of appendectomy History of removal of ovarian cyst History of wisdom tooth extraction Family History Father Medical history unknown Mother CVD (cardiovascular disease) Family/Other FH: mental illness Social History Housing: Apartment Alcohol intake: never Patient Tobacco Use Status: Former Tobacco user e-Cigarette/Vaping Use: Never Used Second Hand Smoke Exposure: No service: No Current occupational status: retired and disabled Cognitive needs: No Hearing needs: No Vision needs: Yes (wear glasses) Physical Exam Vital Signs: Last Vital Signs Pulse 77 05/02/24 11:51 Resp 16 05/02/24 11:51 BP 144/65 H 05/02/24 11:51 BMI result Body Mass Index 33.4 Results AMB Hemoglobin A1c AMB Hemoglobin A1c 7.2 % Last Edit by MAGGIE Flores on 05/02/24 10:49 Assessment & Plan Assessment & Plan (1) Thoracic spondylosis: Code(s): M47.814 - Spondylosis without myelopathy or radiculopathy, thoracic region Category: Medical (2) Right shoulder pain: Code(s): M25.511 - Pain in right shoulder Category: Medical Qualifiers: Chronicity: chronic Qualified Code(s): M25.511 - Pain in right shoulder; G89.29 - Other chronic pain (3) Intercostal neuralgia: Code(s): G58.8 - Other specified mononeuropathies Category: Medical Plan Plan - Repeat intracostal nerve blocks for right upper back pain at subsequent visit at the end of April. - Monitor shoulder pain as it has been well-managed post-corticosteroid injections. - Await appropriate interval between corticosteroid administrations before further procedural intervention. Patient was informed and verbally consented to the use of an ambient scribe for clinic note documentation during this visit. Discussion Notes I reviewed the results of the thoracic and lumbar spine x-rays with the patient, confirming there were no acute fractures present. We discussed the management of her chronic right upper back pain, and she expressed interest in having repeat intracostal nerve blocks, as these have been beneficial previously. I explained the need to wait until the end of April to repeat the procedure to ensure adequate time has passed since the last corticosteroid injections. The patient understood and agreed with the plan. Patient Instructions - Monitor any changes or worsening of back pain. - Prepare for next visit at the end of April. - Report any new symptoms or side effects to management plans. - Continue with current activities but adjust as needed to manage pain. Coding Level of Care Code Est Pt Level 4 (35100) Diagnoses Thoracic spondylosis M47.814 Chronic right shoulder pain M25.511; G89.29 Chronicity: chronic Intercostal neuralgia G58.8
== END 2024-05-02 12:30 | disposition home or self-care (01) ==
LOC: HO.PMC 11:46
PROVIDERS: PCP Physician Assistant; Visit Provider Internal Medicine
DX: M47.814 Spondylosis without myelopathy or radiculopathy, thoracic region (principal); M25.511 Pain in right shoulder; G89.29 Other chronic pain; G58.8 Other specified mononeuropathies
CPT/HCPCS: 99214

== ENCOUNTER 2024-05-23 11:55 | Outpatient (AMB) | payer MEDICARE, SELFPAY ==
[2024-05-23 12:03] VITALS: BP 118/73; PULSE 84; O2SAT 96; BMI 34.2
--- NOTE | 2024-05-23 12:03 | A.OFFVIS_ITS ---
Vital Signs 05/23/24 12:03 Height 5 ft Weight 175 lb BMI 34.2 BP 118/73 Blood Pressure Location Lt brachial Position Sitting Pulse 84 Pulse Source Pulse Oximeter Pulse Oximetry (%) 96 Oxygen Delivery Method Room Air Intake Visit Reasons: Right side intercostal NB Allergies tramadol Allergy (Mild, Verified 05/23/24 12:04) Unknown fentanyl [From DURAGESIC] Adverse Reaction (Intermediate, Verified 05/23/24 12:04) NAUSEA & VOMITING tizanidine Adverse Reaction (Intermediate, Verified 05/23/24 12:04) fatigue states multiple meds does not Allergy (Unknown, Uncoded 05/23/24 12:04) Unknown Medication List - Last Reconciled 05/23/24 by Dunia Diaz, HARBOR ENGINEER blood sugar diagnostic ([employer] [employer] Verio test strips) USE ONE STRIP THREE TIMES A DAY hydrochlorothiazide 25 mg PO QAM ibuprofen 800 mg PO .HS insulin glargine (Basaglar KwikPen U-100 Insulin) 25 units (0.25 mL) subcut BEDTIME 30 days insulin regular human (Novolin R FlexPen) 1 sliding scale dose subcut USEASDIRECTD lancets (OneTouch Delica Lancets) 1 gauge topical TID 30 days lancets (OneTouch Delica Plus Lancet) Testing 3 times a day lisinopril 10 mg PO DAILY lorazepam 0.5 mg PO BID meclizine 12.5 mg PO TID PRN 5 days metformin 500 mg PO TID 3 months omeprazole 20 mg PO DAILY pen needle, diabetic (BD Marilyn 2nd Gen Pen Needle) USE TWICE DAILY pen needle, diabetic (BD Marilyn 2nd Gen Pen Needle) 1 ea miscellaneous BID simvastatin 10 mg PO DAILY HPI HPI Right side intercostal NB: Details: History of Present Illness The patient is a 68-year-old female presenting with back pain. This issue is located in the intercostal space and is the primary concern during this visit. The patient has a history of shoulder pain, which has shown improvement, though detailed explanations of prior management and specific interventions for the current back pain were not discussed. She mentioned a noticeable decrease in height, although no broken bones were confirmed in the past. It's suggested that the reduction may relate to changes in her legs, though this remains speculative. No specific duration or onsets were elaborated on and no detailed treatment history for her current back pain was provided in the conversation. Pain Description - Pain is located in the intercostal space. - Pain quality and character not detailed. - Previous shoulder pain present, but currently improved. - Noted decreased height, potentially due to leg changes. - Specific exacerbating or relieving factors not discussed. - No mention of interference with activities or functions. Physical Exam - Musculoskeletal- Painful region identified in the intercostal space. Results Pain Management - Affect: Not explicitly discussed; potential impact on mood not detailed. - Analgesia: Current analgesic use not mentioned; detailed pain level not discussed; no specific pain management goals discussed. - Adverse Effects: No side effects from pain medications reported. - Activities of Daily Living: Interference not mentioned; functional goals not specified. - Aberrant Drug Related Behaviors: Not indicated or discussed. Patient was informed and verbally consented to the use of an ambient scribe for clinic note documentation during this visit. Nerve Block Details: Intercostal nerve block, RIGHT, T3 & T4, ultrasound-guided After obtaining written consent, pre-procedure blood pressure and heart rate were stable and recorded in the nursing record. The patient was placed prone on the table. The relevant levels of the intercostal nerves were physically palpated corresponding to the patient's pain and marked. Using ultrasound, the appropriate landmarks including the rib, intercostal muscles and pleura were identified. A 21 gauge 80 mm echostim needle was advanced under sonographic guidance in proximity to the intercostal nerve. Aspiration was negative for heme and air. 5 cc of ropivacaine 0.5% mixed with 20 mg Kenalog was injected around each of the targeted nerves. The needle was removed, skin cleansed and a sterile bandage was applied. The patient tolerated the procedure well and no complications were encountered. Following the procedure the patient's vital signs and respiration were stable. The patient was discharged home in good condition with post-procedural instructions. Time Out: Immediately prior to the procedure, the following was verbally confirmed that there is a signed consent form and that the correct patient, planned procedure, site and side are consistent with documentation and that necessary equipment and/or blood products are available prior to the start of the case. Complications: none EBL: <1 cc An ultrasound image of the injection was taken and stored in the permanent record. Procedure code (CPT) selection complete [facility] Medical History BPPV (benign paroxysmal positional vertigo) Fibromyalgia History of smoking Osteoarthritis, shoulder Surgical History History of appendectomy History of removal of ovarian cyst History of wisdom tooth extraction Family History Father Medical history unknown Mother CVD (cardiovascular disease) Family/Other FH: mental illness Social History Housing: Apartment Alcohol intake: never Patient Tobacco Use Status: Former Tobacco user e-Cigarette/Vaping Use: Never Used Second Hand Smoke Exposure: No service: No Current occupational status: retired and disabled Cognitive needs: No Hearing needs: No Vision needs: Yes (wear glasses) Physical Exam Vital Signs: Last Vital Signs Pulse 84 05/23/24 12:03 BP 118/73 05/23/24 12:03 Pulse Ox 96 05/23/24 12:03 Oxygen Delivery Method Room Air 05/23/24 12:03 BMI result Body Mass Index 34.2 Assessment & Plan Assessment & Plan (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 Repeat as needed. Coding Level of Care Code Procedure Only Diagnoses Intercostal neuralgia G58.8
--- OUTSIDE RECORDS SUMMARY | 2024-05-23 13:47 | XMS_ITS | Patient Health Record ---
Author Organization [facility] Address [address] [place] [id number] Care Team Providers Care Bowling Ball Patcher Name Role Phone Tye Butler Primary Care Provider Trevon Abad Unavailable [phone] ALLERGIES Allergen (clinical drug ingredient) Drug/Non Drug [...] W/U Status Risk SNOMED Code Notes Problem Encounter for screening for malignant neoplasm of colon (Z12.11) Active confirmed 469302853 Problem Diverticulosis of large intestine without perforation or abscess without bleeding (K57.30) Active confirmed Diverticul ar disease of colon (442900428) Problem Irritable bowel syndrome with diarrhea (K58.0) Active confirmed 297974384 Problem Encounter for screening for malignant neoplasm of rectum (Z12.12) Active confirmed Screening for malignant neoplasm of rectum (252451008) Problem Gastroesophageal reflux disease without esophagitis (K21.9) Active confirmed [id number] PLAN OF TREATMENT Future Test Test Name Order Date COLONOSCOPY 07/29/2022 Insurance Providers Payer Name Payer Address Payer Phone Subscriber Number Group Number Insured Name Patient Relationship to Insured Coverage Start Date Coverage End Date MED[place]ARE OF [place] [address] [facility] [place] [address] [id number] MARYELLEN ATKINSONORAH Self - patient is the insured MEDICAL (GENERAL) HISTORY Medical History History ICD Code Colonoscopy 02-21-2008--neg. colon biopsies, diverticulosis, internal hemorrhoids; she also had a negative colonoscopy in 04/[address] Rich Lr GERD-EGD 01/2008-mild reflux-no Troy' s, normal duodenal biopsies Denies [place],CVA,renal disease Hyperlipidemia HTN Irritable bowel syndrome COPD IDDM Surgical History Surgery Date(Month/Year) appendectomy tubal ligation cyst removal from an ovary
== END 2024-05-23 12:47 | disposition home or self-care (01) ==
LOC: HO.PMC 11:55
PROVIDERS: PCP Physician Assistant; Visit Provider Internal Medicine
DX: G58.8 Other specified mononeuropathies (principal)
CPT/HCPCS: 64420

== ENCOUNTER → 2024-05-23 11:55 | Outpatient (BNVA) | payer MEDICARE, SELFPAY | PROVIDERS: PCP Physician Assistant; Visit Provider Internal Medicine | DX: G58.8 Other specified mononeuropathies (principal) | CPT/HCPCS: 64420 ==

== ENCOUNTER 2024-06-03 09:45 | Outpatient (REF) | payer MEDICARE, SELFPAY ==
--- NOTE | ~2024-06-03 | US_ITS ---
CLINICAL HISTORY: R74.8 - Abnormal levels of other serum enzymes US ABDOMEN COMPLETE Comparison: None Findings: The visualized portions of the pancreas appear unremarkable. The visualized IVC is grossly patent. Visualized segments of the abdominal aorta are normal caliber. The liver is mildly echogenic. The right hepatic lobe measures 19.2 cm. There is no intrahepatic bile duct dilatation. Common bile duct measures 7.2 mm. There is no sonographic Ojeda sign. There is a small shadowing stone in the gallbladder lumen. No significant gallbladder wall thickening. The right kidney measures 10.6 cm in length. The left kidney measures 11.7 cm in length. There are multiple cysts, largest 1.7 cm. There is a 5 mm echogenic focus in the midpole likely a calculus. The spleen is normal. No ascites. IMPRESSION: 1. Cholelithiasis. No acute cholecystitis. 2. Borderline dilated common bile duct. No intrahepatic biliary ductal dilatation. 3. Hepatomegaly and mild hepatic steatosis. 4. Mild fullness of the right renal collecting system. No homer hydronephrosis. 5. Nonobstructing left nephrolithiasis. Multiple left renal cysts. This document has been electronically signed by: Rula Sheppard DO on 06/04/2024 12:01:55
== END 2024-06-03 09:46 | disposition home or self-care (01) ==
LOC: HO.HMGCX 09:45
PROVIDERS: PCP Physician Assistant; Visit Provider Physician Assistant
DX: R74.8 Abnormal levels of other serum enzymes (principal)
CPT/HCPCS: 76700

== ENCOUNTER → 2024-06-03 09:59 | Outpatient (BNV) | payer MEDICARE, SELFPAY | PROVIDERS: PCP Physician Assistant; Visit Provider Radiology Diagnostic Radiology | DX: K80.20 Calculus of gallbladder without cholecystitis without obstruction (principal); K76.0 Fatty (change of) liver, not elsewhere classified; N20.0 Calculus of kidney; R16.0 Hepatomegaly, not elsewhere classified | CPT/HCPCS: 76700 ==

== ENCOUNTER 2024-07-22 11:58 | Outpatient (AMB) | payer MEDICARE, SELFPAY ==
[2024-07-22 12:17] VITALS: BP 106/59; PULSE 81; RESP 16; O2SAT 97; BMI 34.2
--- NOTE | 2024-07-22 12:17 | MHC.OFFVIS ---
Vital Signs 07/22/24 12:17 Height 5 ft Weight 175 lb BMI 34.2 BP 106/59 L Blood Pressure Location Lt brachial Position Sitting Respiration 16 Pulse 81 Pulse Source Pulse Oximeter Pulse Oximetry (%) 97 Oxygen Delivery Method Room Air Intake Visit Reasons: Right Shoulder Injection Sports Anchor Required: No Radiation Control Health Physicist: Radiation Control Health Physicist Present Accompanied by: Richard Obando tramadol Allergy (Mild, Verified 07/22/24 12:20) Unknown fentanyl [From DURAGESIC] Adverse Reaction (Intermediate, Verified 07/22/24 12:20) NAUSEA & VOMITING tizanidine Adverse Reaction (Intermediate, Verified 07/22/24 12:20) fatigue states multiple meds does not Allergy (Unknown, Uncoded 07/22/24 12:20) Unknown Medication List - Last Reconciled 07/22/24 by Chelsi Easley LPN blood sugar diagnostic ([employer] Verio test strips) USE ONE STRIP THREE TIMES A DAY hydrochlorothiazide 25 mg PO QAM ibuprofen 800 mg PO .HS insulin glargine (Basaglar KwikPen U-100 Insulin) 25 units (0.25 mL) subcut BEDTIME 30 days insulin regular human (Novolin R FlexPen) 1 sliding scale dose subcut USEASDIRECTD lancets (OneTouch Delica Lancets) 1 gauge topical TID 30 days lancets (OneTouch Delica Plus Lancet) Testing 3 times a day lisinopril 10 mg PO DAILY lorazepam 0.5 mg PO BID meclizine 12.5 mg PO TID PRN 5 days metformin 500 mg PO TID 3 months omeprazole 20 mg PO DAILY pen needle, diabetic (BD Marilyn 2nd Gen Pen Needle) USE TWICE DAILY pen needle, diabetic 1 ea miscellaneous BID simvastatin 10 mg PO DAILY HPI HPI Right Shoulder Injection: Details: History of Present Illness The patient is a 68-year-old female presenting with right shoulder subacromial bursa and right AC joint injections due to persistent pain in the right shoulder region. She experiences both right shoulder subacromial bursitis and right acromioclavicular joint pain, which have been affecting her functionality and comfort in daily activities. Although the pain has been present for some time, she reports no specific traumatic event leading to it. Additionally, she has undergone similar injections in the past that effectively alleviated her symptoms without adverse effects. The patient remains free of systemic symptoms, such as fever or swelling, and denies any acute incident that may have exacerbated her condition. The management through injections is part of her treatment plan to manage her chronic shoulder pain and improve her quality of life. Pain Description - Onset and Timing: Gradual onset with persistent pain. - Quality and Character: Chronic pain specific to right shoulder subacromial and AC joint areas. - Primary Location: Right shoulder. - Areas of Radiation: Shoulder region with no reported radiation. - Exacerbating Factors: Increased activity or use of the affected shoulder. - Relieving Factors: Injections of corticosteroid solutions. - Interference: Impacts the patient's daily activities and range of movement. Pain Management - Affect: The pain affects her quality of life but does not present with mood disturbances. - Analgesia: Injections previously provided significant relief from shoulder pain. - Adverse Effects: No reported side effects from previous injections. - Activities of Daily Living: Pain has limited her range of motion and daily functionality. - Aberrant Drug Related Behaviors: None reported; injections have been managed appropriately with no misuse. Procedure - Documentation of informed consent for right shoulder subacromial bursa and right AC joint injections was obtained. - A 25-gauge needle was utilized to administer the injection under ultrasound guidance. - An [id number]-[id number] ultrasound approach guided the 25-gauge needle to the right AC joint where 10 mg of Kenalog mixed with 1 cc of 0.25% Ropivacaine was injected, followed by a similar technique for the subacromial bursa with 30 mg of Kenalog mixed with 2 mL of 0.25% Ropivacaine. - The patient experienced no pain on injection and tolerated the procedure well. No blood loss was noted. Images saved. [facility] Medical History BPPV (benign paroxysmal positional vertigo) Fibromyalgia History of smoking Osteoarthritis, shoulder Surgical History History of appendectomy History of removal of ovarian cyst History of wisdom tooth extraction Family History Father Medical history unknown Mother CVD (cardiovascular disease) Family/Other FH: mental illness Social History Housing: Apartment Alcohol intake: never Patient Tobacco Use Status: Former Tobacco user e-Cigarette/Vaping Use: Never Used Second Hand Smoke Exposure: No service: No Current occupational status: retired and disabled Cognitive needs: No Hearing needs: No Vision needs: Yes (wear glasses) Physical Exam Vital Signs: Last Vital Signs Pulse 81 07/22/24 12:17 Resp 16 07/22/24 12:17 BP 106/59 L 07/22/24 12:17 Pulse Ox 97 07/22/24 12:17 Oxygen Delivery Method Room Air 07/22/24 12:17 BMI result Body Mass Index 34.2 Assessment & Plan Assessment & Plan (1) Acromioclavicular joint arthritis: Code(s): M19.019 - Primary osteoarthritis, unspecified shoulder Category: Medical (2) Right shoulder pain: Code(s): M25.511 - Pain in right shoulder Category: Medical Qualifiers: Chronicity: chronic Qualified Code(s): M25.511 - Pain in right shoulder; G89.29 - Other chronic pain Plan Plan - Schedule repeat injection in three months. - Monitor pain levels and functionality following today's procedure. - Continue injection therapy as per patient's tolerability and observed improvement in symptoms. Patient was informed and verbally consented to the use of an ambient scribe for clinic note documentation during this visit. Discussion Notes I have discussed with the patient the management of her persistent shoulder pain through the administration of corticosteroid injections to the right shoulder subacromial bursa and right AC joint. The benefits, including pain relief and improved mobility, were clearly explained, and potential side effects were discussed. No significant risks were anticipated, and the patient consented to the plan. Follow-up care and the planned repeat injection in three months were agreed upon. Patient Instructions - Follow up with a scheduled injection in three months. - Monitor shoulder pain and report any changes or new symptoms. - Maintain current activity level and avoid activities that may exacerbate shoulder pain. Coding Level of Care Code Procedure Only Diagnoses Acromioclavicular joint arthritis M19.019 Chronic right shoulder pain M25.511; G89.29 Chronicity: chronic
== END 2024-07-22 12:50 | disposition home or self-care (01) ==
LOC: HO.PMC 11:59
PROVIDERS: PCP Physician Assistant; Visit Provider Internal Medicine
DX: M19.019 Primary osteoarthritis, unspecified shoulder (principal); M25.511 Pain in right shoulder; G89.29 Other chronic pain
CPT/HCPCS: 20606; 20611

== ENCOUNTER → 2024-07-22 11:58 | Outpatient (BNVA) | payer MEDICARE, SELFPAY | PROVIDERS: PCP Physician Assistant; Visit Provider Internal Medicine | DX: M19.011 Primary osteoarthritis, right shoulder (principal); M25.511 Pain in right shoulder; G89.29 Other chronic pain | CPT/HCPCS: 20606; 20611 ==

== ENCOUNTER 2024-10-07 11:41 | Outpatient (AMB) | payer MEDICARE, SELFPAY ==
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
[2024-10-07 11:51] VITALS: BP 116/66; PULSE 102; RESP 16; O2SAT 92; BMI 34.6
--- OUTSIDE RECORDS SUMMARY | 2024-10-07 12:11 | XMS_ITS | Patient Health Record ---
Author Organization [facility] Address [address] [place] [id number] Care Team Providers Care Ergonomist Name Role Phone Tye Butler Primary Care Provider Trevon Abad Unavailable [phone] Allergies Allergen (clinical drug ingredient) Drug/Non Drug Allergy documented on EMR Reaction Allergy Type Onset Date Status morphine MS Contin Unknown Drug Allergy Active Duragesic-100 Unknown Drug Allergy Act haily Reason For Referral No Information Medications Medication SIG (Take, Route, Frequency, Duration) Notes [...] 20 MG Oral for 90 A ctive Social History Tobacco Use: Social History Observation Description Date Details (start date - stop date) Former Smoker NA - NA Tobacco Use/Smoking Question Answer Notes Patient is a former smoker How long has it been since you last smoked? 1-5 years Section Notes: Smoker 1/2 ppd; no alcohol Non-Smoker since 2018; no al cohol Problems Problem Type SNOMED Code ICD Code Onset Dates Problem Status W/U Status Risk Notes Problem [id number] Encounter for screening for malignant neoplasm of colon (Z12.11) Active confirmed Problem Diverticular disease of colon (638320389) Diverticulosis of large intestine without perforation or abscess without bleeding (K57.30) Active confirmed Problem 774567040 Irritable bowel syndrome with diarrhea (K58.0) Active confirmed Problem Screening for malignant neoplasm of rectum (737854497) Encounter for screening for malignant neoplasm of rectum (Z12.12) Active confirmed Problem 124811000 Gastroesophageal reflux disease without esophagitis (K21.9) Active confirmed Plan Of Treatment Future Test Test Name Order Date COLONOSCOPY 07/29/2022 Insurance Providers Payer Name Payer Address Payer Phone Subscriber Number Group Number Insured Name Patient Relationship to Insured Coverage Start Date Coverage End Date [place] [address] [facility] [place] [phone] [id number] Self - patient is the insured Medical (General) History Medical History History ICD Code Colonoscopy 02-21-2008--neg. colon biopsies, diverticulosis, internal hemorrhoids; she also had a negative colonoscopy in 04/[address] Rich Lr GERD-EGD 01/2008-mild reflux-no Troy' s, normal duodenal biopsies Denies [place],CVA,renal disease Hyperlipidemia HTN Irritable bowel syndrome COPD IDDM Surgical History Surgery Date(Month/Year) appendectomy tubal ligation cyst removal from an ovary
== END 2024-10-07 12:17 | disposition home or self-care (01) ==
LOC: HO.PMC 11:42
PROVIDERS: PCP Physician Assistant; Visit Provider Internal Medicine
DX: G58.8 Other specified mononeuropathies (principal)
CPT/HCPCS: 64420; 64421; 77002

== ENCOUNTER → 2024-10-07 11:41 | Outpatient (BNVA) | payer MEDICARE, SELFPAY | PROVIDERS: PCP Physician Assistant; Visit Provider Internal Medicine | DX: G58.8 Other specified mononeuropathies (principal) | CPT/HCPCS: 64420; 64421 ==

== ENCOUNTER 2024-10-21 10:57 | Outpatient (AMB) | payer MEDICARE, SELFPAY ==
--- OUTSIDE RECORDS SUMMARY | 2024-10-21 11:07 | XMS_ITS | Patient Health Record ---
Author Organization [facility] Address [address] [place] [id number] Care Team Providers Care Lacquerer Name Role Phone Tye Butler Primary Care Provider Trevon Abad Unavailable [phone] Allergies Allergen (clinical drug ingredient) Drug/Non Drug [...] Problem Status W/U Status Risk Notes Problem [id number] Encounter for screening for malignant neoplasm of colon (Z12.11) Active confirmed Problem Diverticular disease of colon (406259599) Diverticulosis of large intestine without perforation or abscess without bleeding (K57.30) Active confirmed Problem 261215638 Irritable bowel syndrome with diarrhea (K58.0) Active confirmed Problem Screening for malignant neoplasm of rectum (006038479) Encounter for screening for malignant neoplasm of rectum (Z12.12) Active confirmed Problem 882782715 Gastroesophageal reflux disease without esophagitis (K21.9) Active confirmed Plan Of Treatment Future Test Test Name Order Date COLONOSCOPY 07/29/2022 Insurance Providers Payer Name Payer Address Payer Phone Subscriber Number Group Number Insured Name Patient Relationship to Insured Coverage Start Date Coverage End Date [place] [address] [facility] [address] [phone] [id number] Self - patient is the insured Medical (General) History Medical History History ICD Code Colonoscopy 02-21-2008--neg. colon biopsies, diverticulosis, internal hemorrhoids; she also had a negative colonoscopy in 04/[address] Rich Lr GERD-EGD 01/2008-mild reflux-no Troy' s, normal duodenal biopsies Denies [place],CVA,renal disease Hyperlipidemia HTN Irritable bowel syndrome COPD IDDM Surgical History Surgery Date(Month/Year) appendectomy tubal ligation cyst removal from an ovary
--- NOTE | 2024-10-21 11:14 | MHC.OFFVIS ---
Vital Signs 10/21/24 11:15 Height 5 ft Weight 177 lb BMI 34.6 BP 134/70 Blood Pressure Location Lt brachial Position Sitting Respiration 16 Pulse 59 Pulse Source Pulse Oximeter Pulse Oximetry (%) 98 Oxygen Delivery Method Room Air Intake Visit Reasons: Right AC inj Cottrell Blower Required: No Accompanied by: Self / Same As Patient Allergies tramadol Allergy (Mild, Verified 10/21/24 11:17) Unknown fentanyl (From DURAGESIC) Adverse Reaction (Intermediate, Verified 10/21/24 11:17) NAUSEA & VOMITING tizanidine Adverse Reaction (Intermediate, Verified 10/21/24 11:17) fatigue states multiple meds does not Allergy (Unknown, Uncoded 10/07/24 11:53) Unknown HPI HPI Right AC inj: Details: History of Present Illness The patient is a 69-year-old female presenting with right acromioclavicular joint pain. The pain has been persistent, leading to the decision for an injection procedure to alleviate symptoms. The patient has previously undergone similar procedures, indicating a history of chronic joint pain management. Physical Exam - Musculoskeletal: Right acromioclavicular joint palpation with no pain on injection Procedure - Right acromioclavicular joint injection under ultrasound guidance: Informed consent obtained, patient positioned, 25-gauge needle introduced, 20 mg of Kenalog mixed with 1 mL of normal saline injected, no pain or blood loss, patient tolerated well. Imade saved to record. [facility] Medical History BPPV (benign paroxysmal positional vertigo) Fibromyalgia History of smoking Osteoarthritis, shoulder Surgical History History of appendectomy History of removal of ovarian cyst History of wisdom tooth extraction Family History Father Medical history unknown Mother CVD (cardiovascular disease) Family/Other FH: mental illness Social History Housing: Apartment Alcohol intake: never Patient Tobacco Use Status: Former Tobacco user e-Cigarette/Vaping Use: Never Used Second Hand Smoke Exposure: No service: No Current occupational status: retired and disabled Cognitive needs: No Hearing needs: No Vision needs: Yes (wear glasses) Physical Exam Vital Signs: Last Vital Signs Pulse 59 10/21/24 11:15 Resp 16 10/21/24 11:15 BP 134/70 10/21/24 11:15 Pulse Ox 98 10/21/24 11:15 Oxygen Delivery Method Room Air 10/21/24 11:15 BMI result Body Mass Index 34.6 Assessment & Plan Assessment & Plan (1) Acromioclavicular joint arthritis: Code(s): M19.019 - Primary osteoarthritis, unspecified shoulder Category: Medical Plan Plan - Follow-up as needed for repeat injection if symptoms persist. Patient was informed and verbally consented to the use of an ambient scribe for clinic note documentation during this visit. Discussion Notes Informed consent was obtained for the right acromioclavicular joint injection under ultrasound guidance. The procedure was explained, including the use of a 25-gauge needle and the injection of 20 mg of Kenalog with 1 mL of normal saline. The patient was informed about the lack of pain during the procedure and the absence of blood loss. Follow-up care was discussed, with the option for repeat injections if necessary. Patient Instructions - Follow up as needed if symptoms persist or worsen. Coding Level of Care Code Procedure Only Diagnoses Acromioclavicular joint arthritis M19.019
[2024-10-21 11:15] VITALS: BP 134/70; PULSE 59; RESP 16; O2SAT 98; BMI 34.6
== END 2024-10-21 11:34 | disposition home or self-care (01) ==
LOC: HO.PMC 10:57
PROVIDERS: PCP Physician Assistant; Visit Provider Internal Medicine
DX: M19.019 Primary osteoarthritis, unspecified shoulder (principal)
CPT/HCPCS: 20606

== ENCOUNTER → 2024-10-21 | Outpatient (BNVA) | payer MEDICARE, SELFPAY | PROVIDERS: PCP Physician Assistant; Visit Provider Internal Medicine | DX: M19.011 Primary osteoarthritis, right shoulder (principal) | CPT/HCPCS: 20606; J3301 ==

== ENCOUNTER 2024-10-31 11:06 | Outpatient (AMB) | payer MEDICARE, SELFPAY ==
--- NOTE | 2024-10-31 11:20 | MHC.PC.OV ---
Vital Signs 10/31/24 11:21 Height 5 ft Weight 179 lb 4 oz BMI 35.0 BP 110/68 Blood Pressure Location Lt brachial Position Sitting Pulse 69 Pulse Source Pulse Oximeter Temp 97.1 F Temp Source Temporal Artery Scan Pulse Oximetry (%) 97 Oxygen Delivery Method Room Air Intake Visit Reasons: f/u DMII Intake Note: Patient is here to follow up on DM. Crate Liner Required: No Audio Video Repairer: Not Required per policy Accompanied by: Self / Same As Patient Allergies tramadol Allergy (Mild, Verified 10/31/24 11:30) Unknown fentanyl (From DURAGESIC) Adverse Reaction (Intermediate, Verified 10/31/24 11:30) NAUSEA & VOMITING tizanidine Adverse Reaction (Intermediate, Verified 10/31/24 11:30) fatigue states multiple meds does not Allergy (Unknown, Uncoded 10/31/24 11:30) Unknown Medication List - Last Reconciled 10/31/24 by Tye Butler PA-C blood sugar diagnostic (StartupMojoTouch Verio test strips) USE ONE STRIP THREE TIMES A DAY hydrochlorothiazide 25 mg PO QAM ibuprofen 800 mg PO .HS insulin glargine (Basaglar KwikPen U-100 Insulin) 25 units (0.25 mL) subcut BEDTIME 30 days insulin regular human (Novolin R FlexPen) 1 sliding scale dose subcut USEASDIRECTD lancets (OneTouch Delica Lancets) 1 gauge topical TID 30 days lancets (OneTouch Delica Plus Lancet) Testing 3 times a day lisinopril 10 mg PO DAILY lorazepam 0.5 mg PO BID meclizine 12.5 mg PO TID PRN 5 days metformin 500 mg PO TID 3 months omeprazole 20 mg PO DAILY pen needle, diabetic (BD Marilyn 2nd Gen Pen Needle) USE TWICE DAILY pen needle, diabetic 1 ea miscellaneous BID simvastatin 10 mg PO DAILY Tobacco use date assessed: 10/31/24 Fall risk assessment: No Falls in past year Last assessed Fall Risk: 10/31/24 Dental Screening Dental Screen Date: 05/02/24 HPI f/u DMII HPI Details Patient is a 69 year female here today for a follow-up on chronic conditions. ? Patient has a past history significant for cervical spine pain, obesity, hypertension, type 2 diabetes. Concerns--> patient reports persistent stye in her right eye. The stye has been present for almost two weeks, causing significant discomfort and headaches due to its size. The patient reports that the stye has leaked, causing blurred vision, and this is the third occurrence this year in the same eye. Diabetes:? Has been well controlled with current dose of Lantus.? Today's A1c is 7.6 from 7.2 She does not recall any hypoglycemic episodes. She has a reduce her metformin to once a day. She is only using 20 units of Lantus. PLAN: Will increase her Lantus dose to 25 units daily for better glycemic control .. Fatty liver: The patient has been diagnosed with fatty liver disease, attributed to abdominal fat rather than statin medication use. She is aware of the potential liver impact of her cholesterol medication but has not experienced any related symptoms. .. Hypertension: Blood pressure acceptable today in office. Will continue with her current antihypertensive medication .. Hyperlipidemia: Most recent fasting lipid panel showing good control over total cholesterol and LDL. Will continue low-dose statin .. Thoracic radiculopathy:? Continues to have intermittent sharp right flank pain radiating into the anterior aspect of her chest. ? Patient recently had MRI of thoracic spine showing a T 9-10 moderate disc herniation compression.? She has been using Tylenol and NSAIDs without much relief.? Has use muscle relaxers in the past though had side effects. Recent x-rays of thoracic spine showing significant kyphosis . [facility] Medical History BPPV (benign paroxysmal positional vertigo) Fibromyalgia History of smoking Osteoarthritis, shoulder Surgical History History of appendectomy History of removal of ovarian cyst History of wisdom tooth extraction Family History Father Medical history unknown Mother CVD (cardiovascular disease) Family/Other FH: mental illness Social History Housing: Apartment Alcohol intake: never Patient Tobacco Use Status: Former Tobacco user e-Cigarette/Vaping Use: Never Used Second Hand Smoke Exposure: Yes service: No Current occupational status: retired and disabled Cognitive needs: No Hearing needs: No Vision needs: Yes (wear glasses) Questionnaire PHQ-9 Over the last 2 weeks, how often have you been bothered by any of the following problems? 1. Little interest or pleasure in doing things: not at all 2. Feeling down, depressed, or hopeless: not at all 3. Trouble falling or staying asleep, or sleeping too much: not at all 4. Feeling tired or having little energy: several days 5. Poor appetite or overeating: not at all 6. Feeling bad about yourself - or that you are a failure or have let yourself or your family down: not at all 7. Trouble concentrating on things, such as reading the newspaper or watching television: not at all 8. Moving or speaking so slowly that other people could have noticed. Or the opposite - being so fidgety or restless that you have been moving around a lot more than usual: not at all 9. Thoughts that you would be better off or of hurting yourself in some way: not at all Total score: 1 Depression Screening Interpretation: Negative Depression Screening Done: Yes 12196 - PHQ-9 Billing: Yes Source: Developed by Drs. Trevon Capps, Cici Macias, Lb Marks and colleagues, with an educational shantell from [employer]. Thrive Questionnaire Date Thrive assessed: 10/31/24 I am a: Patient What is your living situation today?: I have a steady place to live Within the past 12 months, did the food you bought not last and you didn't have the money to get more?: I choose not to answer this question Within the past 12 months, did you worry whether your food would run out before you got money to buy more?: I choose not to answer this question Do you have trouble paying for medicines?: No Do you have trouble getting transportation to medical appointments?: No THRIVE Score: 0 CAROLE-7 AMB Questionnaire CAROLE-7 Date CAROLE - 7 assessed: 05/02/24 Source: Developed by Drs. Trevon Capps, Cici Macias, Lb Marks and colleagues, with an educational shantell from [employer]. Review of Systems Const Denies headache(s) Eyes Denies loss of vision ENT Denies vertigo, Denies dizziness, Denies headache(s) and Denies sore throat Card Denies chest pain, Denies leg edema and Denies lightheadedness Resp Denies cough, Denies hemoptysis and Denies wheezing GI Denies abdominal pain, Denies melena, Denies constipation, Denies diarrhea and Denies vomiting Denies urinary frequency, Denies dysuria and Denies urinary urgency Musc Denies arthralgias, Denies joint swelling, Denies numbness and Denies tingling Neuro Denies Abnormal speech present, Denies behavioral changes, Denies vertigo, Denies dizziness, Denies headache(s), Denies loss of vision, Denies memory loss, Denies numbness and Denies tingling Psych Denies anxiety, Denies behavioral changes, Denies depression, Denies memory loss and Denies panic attacks Chano/Lymph Denies easy bleeding and Denies easy bruising Aller/Immun Denies wheezing Physical exam (Primary Care) Vital Signs: Last Vital Signs Temp 97.1 F 10/31/24 11:21 Pulse 69 10/31/24 11:21 BP 110/68 10/31/24 11:21 Pulse Ox 97 10/31/24 11:21 Oxygen Delivery Method Room Air 10/31/24 11:21 BMI result Body Mass Index 35.0 Tobacco/Smoking Status: Tobacco use Status Tobacco use date assessed 10/31/24 10/31/24 11:28 Patient Tobacco Use Status Former Tobacco user 10/31/24 11:28 e-Cigarette/Vaping Use Never Used 10/31/24 11:28 PHQ-9: PHQ-9 Score PHQ-9: Total score 1 10/31/24 11:28 Depression Screening Interpretation: Negative Thrive Assessment: Date of Thrive Assessment Date Thrive assessed 10/31/24 10/31/24 11:28 Const General: healthy appearing, no acute distress, alert and awake Nutritional Appearance: well nourished Orientation/consciousness: oriented to person, oriented to place and oriented to time HENMT Ears: TM's normal bilaterally General nose exam: Normal nasal mucous membranes and turbinates present Eyes Conjunctivae: conjunctivae normal Sclerae: sclerae normal Pupils: Equal, round and reactive pupils present Neck Neck: Yes no lymphadenopathy and Yes no JVD Thyroid: Thyroid normal Carotids: no bruits Resp Effort & Inspection: normal respiratory effort and not tachypneic Auscultation: no crackles, no rales, no rhonchi and no wheezes Cardio Rate: regular rate Rhythm: regular rhythm Heart sounds: no murmurs and normal S1 and S2 GI Palpation (GI): Soft to palpation, nontender, no hepatomegaly and no splenomegaly Auscultation: normal bowel sounds Skin General skin exam: no rashes or lesions noted and dry skin Neuro General: oriented to person, oriented to place and oriented to time Cranial nerves: Yes Equal, round and reactive pupils present Speech: No Abnormal speech present Gait exam (Neuro): Normal gait present Motor exam (neuro): no tremor noted Extrem Right upper extremity: full ROM Left upper extremity: full ROM Right lower extremity: full ROM; no edema Left lower extremity: full ROM; no edema Psych Mental Status: mental status grossly normal Speech and movement: Normal speech and movement present Affect: normal affect Attitude: cooperative Thought process: Normal thought process present Results AMB Hemoglobin A1c AMB Hemoglobin A1c 7.6 % Last Edit by MAGGIE Murray on 10/31/24 11:34 Coding Level of Care Code Est Pt Level 4 (71888) Diagnoses Type 2 diabetes mellitus without complication, without long-term current use of insulin E11.9 Diabetes mellitus complication status: without complication 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 insulin use: without fdc use Thoracic radiculopathy M54.14 Essential hypertension I10 Hypertension type: essential hypertension Mixed hyperlipidemia E78.2 Hyperlipidemia type: mixed hyperlipidemia Hordeolum externum of right upper eyelid H00.011 Eyelid: upper Fatty liver K76.0 Additional Codes PHQ-9 - 52657 - PHQ-9 Billing: Yes ([id number]) Assessment & Plan Assessment & Plan (1) Type 2 diabetes mellitus: Code(s): E11.9 - Type 2 diabetes mellitus without complications Category: Medical Qualifiers: Diabetes mellitus complication status: without complication 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 Today's A1c is 7.6. She does admit to some dietary indiscretion over the holidays. Will continue diabetic diet and continue on current dose of metformin and Basaglar. Advised on increasing her Basaglar to 25 units daily. Goal A1c is to be below 7.0 (2) Thoracic radiculopathy: Code(s): M54.14 - Radiculopathy, thoracic region Category: Medical Plan: Continues to follow [place] pain management. She has undergone injections which have offered her some relief to her pain. She did get a neurostimulator which did help reduce her pain. (3) HTN (hypertension): Code(s): I10 - Essential (primary) hypertension Category: Medical Qualifiers: Hypertension type: essential hypertension Qualified Code(s): I10 - Essential (primary) hypertension Plan: Patient's blood pressure acceptable today in office. Will continue current dose of antihypertensive medication with goal blood pressure to remain below 140/90. (4) HLD (hyperlipidemia): Code(s): E78.5 - Hyperlipidemia, unspecified Category: Medical Qualifiers: Hyperlipidemia type: mixed hyperlipidemia Qualified Code(s): E78.2 - Mixed hyperlipidemia Plan: Patient's most recent lipid panel showing good control over total cholesterol and LDL. Goal LDL to remain below 100 (5) Hordeolum externum of right eye: Code(s): H00.013 - Hordeolum externum right eye, unspecified eyelid Category: Medical Qualifiers: Eyelid: upper Qualified Code(s): H00.011 - Hordeolum externum right upper eyelid Plan: The patient will be prescribed antibiotic eye drops to be used three to four times a day to address the stye. Warm compresses are recommended to aid in reducing the swelling and discomfort. (6) Fatty liver: Code(s): K76.0 - Fatty (change of) liver, not elsewhere classified Category: Medical Plan: Patient does have elevated liver enzymes, ultrasound of abdomen did confirm fatty liver and cholelithiasis. Will work on lifestyle and dietary modification Plan Goal: A1c to be below 7.0, LDL to be below 100 Barriers: Adherence to physical activity and healthy eating habits Orders: Orders Comprehensive [place]. Panel Fast Today E11.9 - Type 2 diabetes mellitus without complications Complete Blood Count no Diff Today E11.9 - Type 2 diabetes mellitus without complications Lipid Panel Today E78.2 - Mixed hyperlipidemia Microalbumin, Random (w Creat) Today I10 - Essential (primary) hypertension AMB Hemoglobin A1c Today E11.9 - Type 2 diabetes mellitus without complications Medications: New polymyxin B sulf-trimethoprim 10,000 unit- 1 mg/mL while awake; do not exceed 6 doses in 24 hours 1 drp ophthalmic (eye) QID 10 mL 0RF 7 days H00.011 - Hordeolum externum right upper eyelid, H10.9 - Unspecified conjunctivitis
[2024-10-31 11:21] VITALS: BP 110/68; PULSE 69; TEMP 36.2; O2SAT 97; BMI 35.0
--- OUTSIDE RECORDS SUMMARY | 2024-10-31 12:05 | XMS_ITS | Patient Health Record ---
Author Organization [facility] Address [address] [place] [address] Care Team Providers Care Manager Vehicle Name Role Phone Tye Butler Primary Care Provider Trevon Abad Unavailable [phone] Allergies Allergen (clinical drug ingredient) Drug/Non Drug [...] Problem Status W/U Status Risk Notes Problem [id number] Encounter for screening for malignant neoplasm of colon (Z12.11) Active confirmed Problem Diverticular disease of colon (379172105) Diverticulosis of large intestine without perforation or abscess without bleeding (K57.30) Active confirmed Problem 392883800 Irritable bowel syndrome with diarrhea (K58.0) Active confirmed Problem Encounter for screening for malignant neoplasm of rectum (Z12.12) Active confirmed Problem 047583679 Gastroesophageal reflux disease without esophagitis (K21.9) Active confirmed Plan Of Treatment Future Test Test Name Order Date COLONOSCOPY 07/29/2022 Insurance Providers Payer Name Payer Address Payer Phone Subscriber Number Group Number Insured Name Patient Relationship to Insured Coverage Start Date Coverage End Date [place] [address] [place] [address] [id number] ATKINSON Self - patient is the insured Medical (General) History Medical History History ICD Code Colonoscopy 02-21-2008--neg. colon biopsies, diverticulosis, internal hemorrhoids; she also had a negative colonoscopy in 04/[address] Rich Lr GERD-EGD 01/2008-mild reflux-no Troy' s, normal duodenal biopsies Denies [place],CVA,renal disease Hyperlipidemia HTN Irritable bowel syndrome COPD IDDM Surgical History Surgery Date(Month/Year) appendectomy tubal ligation cyst removal from an ovary
== END 2024-10-31 11:47 | disposition home or self-care (01) ==
LOC: HO.HMCH 11:07
PROVIDERS: PCP Physician Assistant; Visit Provider Physician Assistant
DX: E11.9 Type 2 diabetes mellitus without complications (principal); M54.14 Radiculopathy, thoracic region; I10 Essential (primary) hypertension; E78.2 Mixed hyperlipidemia; H00.011 Hordeolum externum right upper eyelid; K76.0 Fatty (change of) liver, not elsewhere classified

== ENCOUNTER → 2024-10-31 11:06 | Outpatient (BNVA) | payer MEDICARE, SELFPAY | PROVIDERS: PCP Physician Assistant; Visit Provider Physician Assistant | DX: E11.9 Type 2 diabetes mellitus without complications (principal); M54.14 Radiculopathy, thoracic region; I10 Essential (primary) hypertension; E78.2 Mixed hyperlipidemia; H00.011 Hordeolum externum right upper eyelid; K76.0 Fatty (change of) liver, not elsewhere classified | CPT/HCPCS: 83036; 96127; 99212 ==

== ENCOUNTER 2025-01-25 10:05 | Outpatient (AMB) | payer MEDICARE, SELFPAY ==
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
[2025-01-25 10:13] VITALS: BP 130/78; PULSE 74; RESP 16; O2SAT 98; BMI 34.4
--- OUTSIDE RECORDS SUMMARY | 2025-01-25 12:17 | XMS_ITS | Patient Health Record ---
Author Organization [facility] Address [address] [place] [id number] Care Team Providers Care Retail Service Technician Name Role Phone Tye Butler Primary Care Provider Trevon Abad Unavailable [phone] Allergies Allergen (clinical drug ingredient) Drug/Non Drug [...] a day Active Basaglar KwikPen 100 UNIT/ML Subcutaneou s; Duration: 60 Active metFORMIN HCl 500 MG Oral; Duration: 90 Active LORazepam 0.5 MG Oral; Duration: 30 Active Omeprazole 20 MG Oral; Duration: 90 Active Social History Tobacco Use: Social History Observation [...] Problem Status W/U Status Risk Notes Problem Screening for malignant neoplasm of colon (262254080) Encounter for screening for malignant neoplasm of colon (Z12.11) Active confirmed Problem Diverticular disease of colon (626080741) Diverticulosis of large intestine without perforation or abscess without bleeding (K57.30) Active confirmed Problem Irritable bowel syndrome with diarrhea (105591630) Irritable bowel syndrome with diarrhea (K58.0) Active confirmed Problem Screening for malignant neoplasm of rectum (624884208) Encounter for screening for malignant neoplasm of rectum (Z12.12) Active confirmed Problem Gastroesophageal reflux disease without esophagitis (962125648) Gastroesophageal reflux disease without esophagitis (K21.9) Active confirmed Plan Of Treatment Future Test Test Name Order Date COLONOSCOPY 07/29/2022 Insurance Providers Payer Name Payer Address Payer Phone Subscriber Number Group Number Insured Name Patient Relationship to Insured Coverage Start Date Coverage End Date MEDICARE OF [facility] [address] [place] [place] [address] [id number] BETZY ATKINSON Self - patient is the insured Medical (General) History Medical History History ICD Code Colonoscopy 02-21-2008--neg. colon biopsies, diverticulosis, internal hemorrhoids; she also had a negative colonoscopy in 04/[address] Rihc Lr GERD-EGD 01/2008-mild reflux-no Troy' s, normal duodenal biopsies Denies [place],CVA,renal disease Hyperlipidemia HTN Irritable bowel syndrome COPD IDDM Surgical History Surgery Date(Month/Year) appendectomy tubal ligation cyst removal from an ovary
== END 2025-01-25 10:49 | disposition home or self-care (01) ==
LOC: HO.PMC 10:05
PROVIDERS: PCP Physician Assistant; Visit Provider Internal Medicine
DX: G58.8 Other specified mononeuropathies (principal)
CPT/HCPCS: 64420; 64421; 77002

== ENCOUNTER → 2025-01-25 10:05 | Outpatient (BNVA) | payer MEDICARE, SELFPAY | PROVIDERS: PCP Physician Assistant; Visit Provider Internal Medicine | DX: G58.8 Other specified mononeuropathies (principal); M79.7 Fibromyalgia; R25.2 Cramp and spasm | CPT/HCPCS: 64420; 64421; 99212; J2795; J3301 ==

== ENCOUNTER 2025-01-25 12:43 | Outpatient (AMB) | payer MEDICARE, SELFPAY ==
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
== END 2025-01-25 13:07 | disposition home or self-care (01) ==
LOC: HO.HSM 12:44
PROVIDERS: PCP Physician Assistant; Referring Provider Physician Assistant; Visit Provider Registered Nurse
DX: M79.7 Fibromyalgia (principal); R25.2 Cramp and spasm
CPT/HCPCS: 99214

== ENCOUNTER 2025-02-22 10:30 | Outpatient (AMB) | payer MEDICARE, SELFPAY ==
[2025-02-22 10:33] VITALS: BP 110/58; PULSE 67; RESP 16; O2SAT 97; BMI 34.4
--- NOTE | 2025-02-22 10:33 | A.OFFVIS_ITS ---
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: Woodworking Shop Laborer Present Accompanied by: Richard Jeffers Allergies tramadol Allergy (Mild, Verified 02/22/25 10:34) Unknown fentanyl (From DURAGESIC) Adverse Reaction (Intermediate, Verified 02/22/25 10:34) NAUSEA & VOMITING tizanidine Adverse Reaction (Intermediate, Verified 02/22/25 10:34) fatigue states multiple meds does not Allergy (Unknown, Uncoded 02/22/25 10:34) Unknown Medication List - Last Reconciled 02/22/25 by Chelsi Easley LPN blood sugar diagnostic (PicodeonTouch Verio test strips) USE ONE STRIP THREE TIMES A DAY hydrochlorothiazide 25 mg PO QAM ibuprofen 800 mg PO .HS insulin glargine (Basaglar KwikPen U-100 Insulin) 25 units (0.25 mL) subcut BEDTIME 30 days insulin regular human (Novolin R FlexPen) 1 sliding scale dose subcut USEASDIRECTD lancets (OneTouch Delica Lancets) 1 gauge topical TID 30 days lancets (OneTouch Delica Plus Lancet) Testing 3 times a day lisinopril 10 mg PO DAILY lorazepam 0.5 mg PO BID meclizine 12.5 mg PO TID PRN 5 days metformin 500 mg PO TID 3 months omeprazole 20 mg PO DAILY pen needle, diabetic 1 ea miscellaneous BID pen needle, diabetic USE TWICE DAILY polymyxin B sulf-trimethoprim 10,000 unit- 1 mg/mL 1 drp ophthalmic (eye) QID 7 days simvastatin 10 mg PO DAILY HPI HPI Right AC inj: Details: History of Present Illness The patient is a 69-year-old individual presenting for a right acromioclavicular joint injection. The patient experiences significant pain in the right shoulder area, identified as the acromioclavicular joint. The patient notes that these injections also help with associated neck pain. Pain Description - Location: The pain is located in the right acromioclavicular joint. - Quality: The patient endorses significant pain, stating it hurts like heck. - Exacerbating factors: The pain is elicited upon palpation of the area. - Associated symptoms: The patient notes that injections in this area also help relieve neck pain. - Relieving factors: Post-injection, the patient reported feeling a lot better. Physical Exam - Musculoskeletal: Palpation of the right acromioclavicular joint elicits tenderness. - Skin: Inspection of the right shoulder reveals no visible bruising, bumps, or skin defects. - Musculoskeletal: Trigger points were identified in the right trapezius and infraspinatus muscles. Pain Management - Analgesia: The patient received a right acromioclavicular joint injection and trigger point injections in the right trapezius and infraspinatus muscles. - Status: Post-procedure, the patient reported the pain feels a lot better. Procedure - Procedure: Right acromioclavicular joint injection and right trigger point injections. - Consent: Informed consent was obtained. - Patient Position: The patient was placed in a sitting position. - Preparation: The right AC joint was prepped with ChloraPrep. - AC Joint Injection US guided: A 25-gauge needle was used to inject 10 mg of Kenalog mixed with ropivacaine 0.25% 1 ml. Image saved. - Trigger Point Injections: Injections were performed in the right trapezius, supraspinatus and infraspinatus muscles. - Trigger Point Medication: Each trigger point was injected with 1-2 mL of 0.25% ropivacaine mixed with 5 mg of Kenalog. - Outcome: The patient tolerated the procedure well, and there was no blood loss. [facility] Medical History (Updated 02/22/25 @ 12:03 by Jerald Varner MD) Fibromyalgia BPPV (benign paroxysmal positional vertigo) History of smoking Osteoarthritis, shoulder Surgical History History of appendectomy History of removal of ovarian cyst History of wisdom tooth extraction Family History Father Medical history unknown Mother CVD (cardiovascular disease) Family/Other FH: mental illness Social History Housing: Apartment Alcohol intake: never Patient Tobacco Use Status: Former Tobacco user e-Cigarette/Vaping Use: Never Used Second Hand Smoke Exposure: Yes service: No Current occupational status: retired and disabled Cognitive needs: No Hearing needs: No Vision needs: Yes (wear glasses) Physical Exam Vital Signs: Last Vital Signs Pulse 67 02/22/25 10:33 Resp 16 02/22/25 10:33 BP 110/58 L 02/22/25 10:33 Pulse Ox 97 02/22/25 10:33 Oxygen Delivery Method Room Air 02/22/25 10:33 BMI result Body Mass Index 34.4 Assessment & Plan Assessment & Plan (1) Acromioclavicular joint arthritis: Code(s): M19.019 - Primary osteoarthritis, unspecified shoulder Category: Medical (2) Myofascial pain: Code(s): M79.18 - Myalgia, other site Category: Medical Plan Plan Patient was informed and verbally consented to the use of an ambient scribe for clinic note documentation during this visit. 1. Right Acromioclavicular Joint Pain - A right acromioclavicular joint injection was performed after obtaining info rmed consent. - The injection consisted of 10 mg of Kenalog mixed with 0.25% ropivacaine. 2. Myofascial Pain - Trigger point injections were performed in the right trapezius and infraspinatus muscles. - Each trigger point was injected with 1-2 mL of 0.25% ropivacaine mixed with 5 mg of Kenalog. - The patient reported feeling a lot better after the procedure. Discussion Notes I confirmed the plan to perform a right acromioclavicular joint injection and trigger point injections with the patient. Informed consent was obtained. The procedures were performed as planned, and the patient tolerated them well with no complications or blood loss. Post-procedure, I confirmed with the patient that the pain was significantly better. Advised follow-up in a few months. Patient Instructions - Post-procedure, the patient reported significant pain improvement. - Plan to follow up in a few months. Coding Level of Care Code Procedure Only Diagnoses Acromioclavicular joint arthritis M19.019 Myofascial pain M79.18
== END 2025-02-22 11:11 | disposition home or self-care (01) ==
LOC: HO.PMC 10:30
PROVIDERS: PCP Physician Assistant; Visit Provider Internal Medicine
DX: M19.011 Primary osteoarthritis, right shoulder (principal); M79.18 Myalgia, other site
CPT/HCPCS: 20552; 20606

== ENCOUNTER → 2025-02-22 10:30 | Outpatient (BNVA) | payer MEDICARE, SELFPAY | PROVIDERS: PCP Physician Assistant; Visit Provider Internal Medicine | DX: M19.011 Primary osteoarthritis, right shoulder (principal); M79.18 Myalgia, other site | CPT/HCPCS: 20552; 20606; J2795; J3301 ==

== ENCOUNTER 2025-03-14 23:33 | Emergency (ER) | payer MEDICARE, SELFPAY ==
--- OUTSIDE RECORDS SUMMARY | 2025-03-14 23:43 | XMS_ITS | Patient Health Record ---
Author Organization [facility] Address [address] [place] [id number] Care Team Providers Care Shaper And Presser Name Role Phone Tey Butler Primary Care Provider Trevon Abad Unavailable [phone] Allergies Allergen (clinical drug ingredient) Drug/Non Drug Allergy documented on EMR Reaction Allergy Type Onset Date Status Duragesic-100 Unknown Drug Allergy Act haily morphine MS Contin Unknown Drug Allergy Active Reason For Referral No Information Medications Medication SIG (Take, Route, Frequency, Duration) Notes Start Date End Date Status Simvastatin 10 MG Tablet 1 tablet in the evening Orally Once a day Active Lisinopril 10 MG Tablet 1 tablet Orally Once a day Active hydroCHLOROthiazide 25 MG Tablet 1 tablet in the morning Orally Once a day Active Ativan 0.5 MG Tablet 1 tablet as needed Orally Twice a day Active Basaglar KwikPen 100 UNIT/ML Solution Pen-injector Subcutaneous; Duration: 60 Active metFORMIN HCl 500 MG Tablet Oral; Duration: 90 Active LORazepam 0.5 MG Tablet Oral; Duration: 30 Active Omeprazole 20 MG Capsule Delayed Release Oral; Duration: 90 Active Social History Tobacco Use: Social History Observation Description Date Details (start date - stop date) Former Smoker NA - NA Social History Tobacco Use: Social Info Question Answer Notes Tobacco Use/Smoking Patient is a former smoker How long has it been since you last smoked? 1-5 years Additional Details Category Social Info Options Details Miscellaneous: Marital status: Occupation: disabled Section Notes: Smoker 1/2 ppd; no alcohol Non-Smoker since 2018; no al cohol Problems Problem Type SNOMED Code ICD Code Onset Dates Problem Status W/U Status Risk Notes Problem Screening for malignant neoplasm of colon (929089164) Encounter for screening for malignant neoplasm of colon (Z12.11) Active confirmed Problem Diverticular disease of colon (493349605) Diverticulosis of large intestine without perforation or abscess without bleeding (K57.30) Active confirmed Problem Irritable bowel syndrome with diarrhea (749289407) Irritable bowel syndrome with diarrhea (K58.0) Active confirmed Problem Screening for malignant neoplasm of rectum (996499007) Encounter for screening for malignant neoplasm of rectum (Z12.12) Active confirmed Problem Gastroesophageal reflux disease without esophagitis (238267233) Gastroesophageal reflux disease without esophagitis (K21.9) Active confirmed Plan Of Treatment Future Test Test Name Order Date COLONOSCOPY 07/29/2022 Insurance Providers Payer Name Payer Address Payer Phone Subscriber Number Group Number Insured Name Patient Relationship to Insured Coverage Start Date Coverage End Date MEDICARE OF [place] [address] [facility] [place] [address] [id number] BETZY ATKINSON Self - patient is the insured Medical (General) History Medical History History ICD Code Colonoscopy 02-21-2008--neg. colon biopsies, diverticulosis, internal hemorrhoids; she also had a negative colonoscopy in 04/[address] Rich Lr GERD-EGD 01/2008-mild reflux-no Troy' s, normal duodenal biopsies Denies [place],CVA,renal disease Hyperlipidemia HTN Irritable bowel syndrome COPD IDDM Surgical History Surgery Date(Month/Year) appendectomy tubal ligation cyst removal from an ovary
[2025-03-14 23:44] VITALS: BP 136/66; BP 136/82; PULSE 77; PULSE 78; RESP 16; TEMP 36.9; O2SAT 96; O2SAT 98; BMI 35.9
[2025-03-14 23:48] LABS: Glucose, Whole Blood 167 mg/dL (60-115)
[2025-03-15 00:34] LABS: Glucose, Whole Blood 113 mg/dL (60-115)
[2025-03-15 01:13] LABS: Glucose, Whole Blood 146 mg/dL (60-115)
[2025-03-15 03:22] LABS: Glucose, Whole Blood 107 mg/dL (60-115)
[2025-03-15 03:22] LABS: Glucose, Whole Blood 101 mg/dL (60-115)
[2025-03-15 04:20] LABS: Glucose, Whole Blood 134 mg/dL (60-115)
[2025-03-15 05:27] LABS: Glucose, Whole Blood 142 mg/dL (60-115)
[2025-03-15 05:28] VITALS: BP 135/76; PULSE 77; RESP 19; O2SAT 96
[2025-03-15 06:11] LABS: Glucose, Whole Blood 137 mg/dL (60-115)
--- NOTE | 2025-03-15 06:15 | PC.NURSE ---
Paused pts IVF of D5% w/ NS, recheck POC in 1/2 hour per MD Perkins
[2025-03-15 06:49] LABS: Glucose, Whole Blood 170 mg/dL (60-115)
[2025-03-15 07:42] VITALS: BP 104/56; PULSE 73; RESP 16; O2SAT 97
--- NOTE | 2025-03-15 07:45 | PC.NURSE ---
POC 145
--- NOTE | 2025-03-15 07:47 | PC.NURSE ---
PT A&O X4 VSS NAD No complaints- provider aware of latest PO 145
[2025-03-15 07:49] LABS: Glucose, Whole Blood 145 mg/dL (60-115)
--- NOTE | 2025-03-15 07:49 | ED.GENADULT ---
HPI - General Adult General Chief complaint: General Medical Stated complaint: accidental med overdose Time Seen by Provider: 03/15/25 00:17 Source: patient and EMS Mode of arrival: EMS Limitations: no limitations History of Present Illness ED Provider: Dr. Radha Perkins HPI narrative: 69-year-old female with a history of insulin-dependent diabetes presenting after taking too much of her long-acting insulin at home. Patient admits that she normally takes 4 units at night before bed but unfortunately gave herself the full morning dose of 24 units. States that she did drink some orange juice but is starting to feel little shaky. EMS reports a normal blood sugar upon their arrival. Blood sugar in the emergency department is 167. Patient denies recent illness. States that she had been feeling well. Denies thoughts of self-harm. This was a complete accident in a mixed up on her part. Admits that she normally would stay home and monitor her own blood sugar but was worried that she might fall asleep and never wake up. Related Data Home Medications ?Medication ?Instructions ?Recorded ?Confirmed lorazepam 0.5 mg tablet 0.5 mg PO BID 03/12/20 02/22/25 ibuprofen 200 mg capsule 800 mg PO .HS 11/05/21 02/22/25 insulin regular human 100 unit/mL 1 sliding scale dose subcut 12/09/21 02/22/25 (3 mL) subcutaneous pen (Novolin R USEASDIRECTD FlexPen) Previous Rx's ?Medication ?Instructions ?Recorded lancets 30 gauge (OneTouch Delica 1 gauge topical TID 30 days #100 01/31/21 Lancets) caps meclizine 12.5 mg tablet 12.5 mg PO TID PRN dizziness 5 03/25/23 days #15 tabs omeprazole 20 mg capsule,delayed 20 mg PO DAILY #90 caps 07/11/23 release lancets 33 gauge (OneTouch Delica #100 ea 02/10/24 Plus Lancet) blood sugar diagnostic (OneTouch #100 strips 04/13/24 Verio test strips) pen needle, diabetic 32 gauge x 1 ea miscellaneous BID #50 ea 07/08/24 metformin 500 mg tablet 500 mg PO TID 3 months #270 tabs 07/10/24 insulin glargine 100 unit/mL (3 25 unit (0.25 mL) subcut BEDTIME 08/12/24 mL) subcutaneous pen (Basaglar 30 days #15 mL KwikPen U-100 Insulin) polymyxin B sulfate 10,000 1 drp ophthalmic (eye) QID 7 days 10/31/24 unit-trimethoprim 1 mg/mL eye drops #10 mL pen needle, diabetic 32 gauge x #100 ea 12/08/24 hydrochlorothiazide 25 mg tablet 25 mg PO QAM #90 tabs 01/09/25 simvastatin 10 mg tablet 10 mg PO DAILY #90 tabs 01/09/25 lisinopril 10 mg tablet 10 mg PO DAILY #90 tabs 03/11/25 Allergies Allergy/AdvReac Type Severity Reaction Status Date / Time tramadol Allergy Mild Unknown Verified 03/14/25 23:48 fentanyl (From DURAGESIC) AdvReac Intermediate NAUSEA & Verified 03/14/25 23:48 VOMITING tizanidine AdvReac Intermediate fatigue Verified 03/14/25 23:48 states multiple meds does not Allergy Unknown Unknown Uncoded 03/14/25 23:48 Review of Systems Review of Systems: as per HPI, full review of systems performed and negative but for the above mentioned pertinent positives and negatives. [facility] Past Medical History Medical History Fibromyalgia BPPV (benign paroxysmal positional vertigo) History of smoking Osteoarthritis, shoulder Surgical History History of appendectomy History of removal of ovarian cyst History of wisdom tooth extraction Family History Family History Father Medical history unknown Mother CVD (cardiovascular disease) Family/Other FH: mental illness Social History Social History Housing: Apartment Alcohol intake: never Patient Tobacco Use Status: Former Tobacco user e-Cigarette/Vaping Use: Never Used Second Hand Smoke Exposure: Yes Advance Directives: No Advance Directives Information Provided: Yes service: No Current occupational status: retired and disabled Cognitive needs: No Hearing needs: No Vision needs: Yes (wear glasses) Physical Exam ED Exam Exam: GENERAL: Chronically ill-appearing, conversant, no acute distress. SKIN: Normal skin color for ethnicity, warm, dry, no rashes noted. HEENT: Normocephalic, atraumatic, no stridor, posterior oropharynx nonerythematous, EOMI. NECK: Soft, supple, full ROM, midline structures nontender, no step-offs, no deformities, no lymphadenopathy. CHEST: Heart regular rate and rhythm, no murmurs, symmetric chest rise and fall. PULMONARY: Clear to auscultation bilaterally, no labored breathing, no wheezes/rhales/ rhonchi. ABDOMINAL: Soft, nondistended, nontender, positive bowel sounds in all quadrants. : Deferred. MUSCULOSKELETAL: Normal tone, full range of motion, no deformities, no peripheral edema. NEURO: Alert and oriented to person, CN II through XII intact, no focal neurologic deficits. PSYCHIATRIC: Flat affect, fluid speech, appropriate demeanor. Vital Signs: Vital Signs - 24 hr 03/14/25 23:44 03/15/25 05:28 03/15/25 07:42 Temperature 98.4 F Pulse Rate 77 77 73 Respiratory Rate 16 19 16 Blood Pressure 136/66 135/76 104/56 L Pulse Oximetry 96 96 97 Oxygen Delivery Method Room Air Room Air Room Air BMI result Body Mass Index 35.9 Medications Administered Discontinued Medications Generic Name Dose Route Start Last Admin Trade Name Freq PRN Reason Stop Dose Admin Dextrose/Sodium Chloride 1,000 mls @ 150 mls/hr 03/15/25 02:30 03/15/25 06:15 D5ns IVCONT 0 mls/hr .[id number] BEA Infusion Medical Decision Making Medical Decision Making [facility] Narrative: 69-year-old female presenting after an unintentional overdose of her insulin that is long-acting. Original blood sugar upon arrival to the emergency department is 167. We will check a blood sugar and continue to monitor closely. Unfortunately, patient's blood sugar did drop to 107 on 2nd check after about an hour. We will give her something to eat that has protein in it and continue to monitor. On 2nd recheck, patient's blood sugar dropped again despite oral intake. We will initiate D5 and continue to monitor. Patient now awake, tolerating oral intake, eating plenty of food and feeling better. Given several hours of D5 administration, stopping it to check for drop in blood sugar and her maintaining a normal blood sugar, we will discharge home to follow up. Encouraged her to hold off on her insulin today until her blood sugars are more steady. Discussed return precautions. Discharged home in stable and improved condition. Differential Diagnosis Differential Diagnoses: The differential diagnosis associated with the presentation includes (unintentional medical overdose, insulin reaction, decreased oral intake, among others) Admission/Observation Consideration of admission/observation: Escalation of care including admission/observation considered Lab Data MDM Lab Attestation statement: I reviewed the patient's lab results. Labs: Lab Results 03/14/25 03/15/25 03/15/25 Range/Units 23:46 00:25 01:08 POC Glucose 167 H 113 146 H (60-115) mg/dL 03/15/25 03/15/25 03/15/25 Range/Units 02:15 03:17 04:16 POC Glucose 107 101 134 H (60-115) mg/dL 03/15/25 03/15/25 03/15/25 Range/Units 05:22 06:07 06:45 POC Glucose 142 H 137 H 170 H (60-115) mg/dL 03/15/25 Range/Units 07:44 POC Glucose 145 H (60-115) mg/dL Independent Historian Clinical information obtained from an independent historian. History obtained from or confirmed by: EMS External Record Review External record reviewed: Inpatient record Chronic Conditions Patient?s care impacted by: Diabetes Social Determinants Patient?s care significantly limited by Social Determinants of Health including: Other Social Determinant of Health Discharge Plan Discharge Clinical Impression: Hypoglycemic reaction to insulin in type 2 diabetes mellitus Patient Disposition: Home, Self-Care Instructions: Hypoglycemia in a Person with Diabetes (ED) Additional Instructions: Your blood sugar is finally stable at this point. You received some IV dextrose which helped stabilize your blood sugar. Continue to check your blood sugar at home every hour until it is truly stable. Try to eat something with protein when you get home. Follow up with your primary care doctor as soon as possible. If you develop any new or worsening symptoms in the meantime, please return to the emergency department immediately. Call 911 with any medical emergency. Prescriptions: No Action lancets [OneTouch Delica Lancets] 30 gauge misc 1 gauge topical TID 30 Days Qty: 100 6RF omeprazole 20 mg capsule,delayed release(DR/EC) 20 mg PO DAILY Qty: 90 1RF (DME) lancets [OneTouch Delica Plus Lancet] 33 gauge misc See Rx Instructions .ROUTE TID Qty: 100 6RF Rx Instructions: Testing 3 times a day (DME) OneTouch Verio test strips Strip See Rx Instructions .ROUTE .COMPLEX Qty: 100 6RF Dose Instruction: USE ONE STRIP THREE TIMES A DAY Rx Instructions: USE ONE STRIP THREE TIMES A DAY pen needle, diabetic 32 gauge x 5/32 needle 1 ea miscellaneous BID Qty: 50 1RF metformin 500 mg tablet 500 mg PO TID 90 Days Qty: 270 2RF Basaglar KwikPen U-100 Insulin 100 unit/mL (3 mL) insulin pen 25 unit subcut BEDTIME 30 Days Qty: 15 2RF (DME) pen needle, diabetic 32 gauge x 5/32 needle See Rx Instructions .ROUTE .COMPLEX Qty: 100 3RF Dose Instruction: USE TWICE DAILY Rx Instructions: USE TWICE DAILY hydrochlorothiazide 25 mg tablet 25 mg PO QAM Qty: 90 3RF simvastatin 10 mg tablet 10 mg PO DAILY Qty: 90 2RF lisinopril 10 mg tablet 10 mg PO DAILY Qty: 90 1RF lorazepam 0.5 mg tablet 0.5 mg PO BID meclizine 12.5 mg tablet 12.5 mg PO TID PRN (Reason: dizziness) 5 Days Qty: 15 0RF ibuprofen 200 mg capsule 800 mg PO .HS Novolin R FlexPen 100 unit/mL (3 mL) insulin pen 1 sliding scale dose subcut USEASDIRECTD polymyxin B sulf-trimethoprim 10,000 unit- 1 mg/mL drops 1 drp ophthalmic (eye) QID 7 Days Qty: 10 0RF Rx Instructions: while awake; do not exceed 6 doses in 24 hours Discharge Date/Time: 03/15/25 08:45 Print Language: Turkmen
== END 2025-03-15 08:45 | disposition home or self-care (01) ==
PROVIDERS: Emergency Provider Emergency Medicine; PCP Physician Assistant
DX: T38.3X1A Poisoning by insulin and oral hypoglycemic [antidiabetic] drugs, accidental (unintentional), initial encounter (principal); E11.649 Type 2 diabetes mellitus with hypoglycemia without coma; Z79.4 Long term (current) use of insulin; Y92.89 Other specified places as the place of occurrence of the external cause; Z87.891 Personal history of nicotine dependence; Z79.899 Other long term (current) drug therapy
CPT/HCPCS: 82947; 96360; 96361; 99284